=== PATIENT | male | born 1940 | race Caucasian/White ===

== ENCOUNTER 2016-10-13 14:07 | Inpatient (IN) ==
--- NOTE | 2016-10-13 14:25 | Emergency Department Note ---
Disposition Clinical Impression: Elevated LFTs, Elevated bilirubin, Acute cholecystitis, Scleral icterus, RUQ pain, Hypotension Disposition: Admitted As Inpatient Condition: Fair Referrals: Sheldon Gallagher DO [Primary Care Provider] - Forms: ED Satisfaction Letter General Adult HPI - General Chief complaint: ED Weakness Stated complaint: passing blood Time Seen by Provider: 10/13/16 14:22 Source: patient - History of Present Illness Pain Scale: 3 - Related Data Home Medications Medication Instructions Recorded Confirmed Duloxetine HCl [Cymbalta] 60 mg PO QAM 09/21/15 05/26/16 Lisinopril [Zestril] 10 mg PO QAM 09/21/15 05/26/16 Gabapentin [Neurontin] 800 mg PO TID 03/17/16 05/26/16 Meloxicam [Mobic] 15 mg PO DAILY 05/26/16 05/26/16 Metoprolol [Lopressor] 25 mg PO BID 05/26/16 05/26/16 Multivitamin/Iron/Folic Acid 1 each PO DAILY 05/26/16 05/26/16 [Centrum Complete Multivit Tab] Oxycodone HCl [Oxaydo] 5 mg PO DAILY 05/26/16 05/26/16 Mirtazapine [Remeron] 15 mg PO HS 08/03/16 08/03/16 Previous Rx's Medication Instructions Recorded Aspirin 81 mg PO DAILY #60 tab.chew 04/05/16 Atorvastatin [Lipitor] 80 mg PO HS #60 tablet 04/05/16 HYDROcodone/Acet 10/325 mg [[place] 1 tab PO Q6HR PRN #30 tablet 04/05/16 10-325 mg] Allergies Allergy/AdvReac Type Severity Reaction Status Date / Time No Known Allergies Allergy Verified 10/13/16 14:20 Past Medical History - Past Medical History Medical history: Reports: arthritis, asthma, atrial fibrillation, coronary artery disease, hyperlipidemia, hypertension, myocardial infarction, other Surgical history: Reports: coronary bypass (CABG), orthopedic, other, prostatectomy Psychiatric history: Reports: anxiety, depression - Social History Smoking Status: Former smoker Smokeless Tobacco Status: No Alcohol use: Reports: none Drug use: Reports: none Physical Exam - General General appearance: alert, in no apparent distress Course Vital Signs Temperature 97.6 F 10/13/16 14:17 Pulse Rate 74 10/13/16 14:17 Respiratory Rate 14 10/13/16 14:17 Blood Pressure 76/40 10/13/16 14:17 O2 Sat by Pulse Oximetry 91 10/13/16 14:17 Temperature 97.6 F 10/13/16 14:17 Pulse Rate 69 10/13/16 15:32 Respiratory Rate 16 10/13/16 15:32 Blood Pressure 86/51 10/13/16 15:32 O2 Sat by Pulse Oximetry 96 10/13/16 15:32 Oxygen Delivery Oxygen Delivery Room Air Medical Decision Making - Lab Data Result diagrams: 10/13/16 14:40 10/13/16 14:40 Lab Results 10/13/16 10/13/16 10/13/16 Range/Units 14:40 14:40 14:46 WBC 6.2 (4.3-11.1) K/mcL RBC 4.10 L (4.19-5.50) M/mcL Hgb 10.8 L (12.9-16.9) g/dL Hct 34.6 L (37.5-50.1) % MCV 84.4 (83.0-100.0) fL MCH 26.3 L (28.0-33.3) pg MCHC 31.2 L (31.6-35.5) g/dL RDW 15.6 H (11.5-14.5) % Plt Count 335 (140-400) K/mcL MPV 9.6 (9.4-12.4) fL Immature Gran % 0.2 (0-4) % Seg Neutrophils % 56.3 % Lymphocytes % 20.6 % Monocytes % 17.7 % Eosinophils % 4.9 % Basophils % 0.3 % Neutrophils # 3.5 (1.6-8.9) K/mcL Lymphocytes # 1.3 (0.6-4.6) K/mcL Monocytes # 1.1 (0.0-1.3) K/mcL Eosinophils # 0.3 (0.0-0.6) K/mcL Basophils # 0.0 (0.0-0.2) K/mcL PT 11.1 (9.4-12.1) Seconds INR 1.0 APTT 33.1 (26.0-36.0) Seconds Sodium 134 L (136-145) mEq/L Potassium 4.3 (3.5-4.5) mEq/L Chloride 97 L (98-109) mEq/L Carbon Dioxide 25 (19-29) mEq/L BUN 36 H (8-26) mg/dL Creatinine 2.96 H (0.72-1.25) mg/dL Est GFR ( Amer) 25 L (> 60) Est GFR (Non-Af Amer) 21 L (> 60) BUN/Creatinine Ratio 12 (6-26) Glucose 152 H (70-99) mg/dL Calculated Osmolality 289 (280-300) Calcium 8.9 (8.6-10.8) mg/dL Total Bilirubin 1.7 H (0.2-1.2) mg/dL Direct Bilirubin 0.9 H (0.0-0.5) mg/dL Indirect Bilirubin 0.8 (0.0-1.2) mg/dL AST 152 H (5-34) Units/L ALT 126 H (0-55) Units/L Alkaline Phosphatase 379 H (38-126) Units/L Serum Total Protein 6.5 (6.0-8.3) g/dL Albumin 2.8 L (3.5-5.0) g/dL Globulin 3.7 H (2.4-3.5) g/dL Albumin/Globulin Ratio 0.8 L (1.1-2.2) Amylase 52 (25-125) Units/L Lipase 39 (8-78) Units/L Attestation Statement - Attestation Attestation: I examined this patient and my medical decision-making was reviewed with the DRIVE IN THEATER ATTENDANT/PA/Advanced Practice Nurse/Resident Physician. I agree with the documented findings, disposition and treatment plan as described except to the extent set forth below. [id number] time provided Patient presents complaining of hematuria. He takes aspirin. He does have some lower abdominal discomfort. Triage vitals indicate hypotension. He appears in no acute distress on exam. Patient seen and evaluated in conjunction with the resident physician 16:06: Labs and CT findings consistent with acute cholecystitis. Empiric antibiotics NOT initiated the recommendation of Dr. Mireles. Patient will require admission
--- NOTE | 2016-10-13 14:36 | Emergency Department Note ---
Disposition Clinical Impression: Elevated LFTs, Elevated bilirubin, Acute cholecystitis, Scleral icterus, RUQ pain Hypotension Qualifiers: Hypotension type: unspecified hypotension type Qualified Code(s): I95.9 - Hypotension, unspecified Disposition: Admitted As Inpatient Condition: Fair Time of Disposition: 16:23 Abdominal Pain HPI - General Chief Complaint: ED Weakness Stated Complaint: passing blood Time Seen by Provider: 10/13/16 14:22 Source: patient Mode of arrival: ambulatory Limitations: no limitations Nursing Notes Reviewed: Yes Vital Signs Reviewed: Yes - History of Present Illness HPI Narrative: Patient is a 76-year-old male with past medical history of A. fib, CAD, hypertension, hyperlipidemia. Only on aspirin for blood thinner. He presents today due to dark reddish brown urine. He has also had bilateral flank pain, right upper quadrant abdominal pain, belching, acid reflux, has felt overall generally weak. Denies any dysuria, chest pain, shortness of breath, vomiting, diarrhea. He does admit to some mild nausea. He is not able to finish meals because "he does not feel like eating. "He does not describe any pain or nausea when eating. is present and states these symptoms have been present for at least a weak and are worsening. Pain Scale: 3 - Related Data Home Medications Medication Instructions Recorded Confirmed Duloxetine HCl [Cymbalta] 60 mg PO QAM 09/21/15 10/13/16 Lisinopril [Zestril] 10 mg PO QAM 09/21/15 10/13/16 Meloxicam [Mobic] 15 mg PO DAILY 05/26/16 10/13/16 Metoprolol [Lopressor] 12.5 mg PO BID 05/26/16 10/13/16 Multivitamin/Iron/Folic Acid 1 each PO DAILY 05/26/16 10/13/16 [Centrum Complete Multivit Tab] Mirtazapine [Remeron] 15 mg PO HS 08/03/16 10/13/16 Amiodarone [Cordarone] 200 mg PO DAILY 10/13/16 10/13/16 Atorvastatin Calcium [Lipitor] 80 mg PO HS 10/13/16 10/13/16 Docusate Sodium [Stool Softener] 100 mg PO DAILY PRN 10/13/16 10/13/16 Gabapentin [Neurontin] 600 mg PO TID 10/13/16 10/13/16 HYDROcodone/Acet 10/325 mg [[place] 1 tab PO QID 10/13/16 10/13/16 10-325 mg] Nitroglycerin [Nitrostat] 0.4 mg SL Q5M PRN 10/13/16 10/13/16 Previous Rx's Medication Instructions Recorded Aspirin 81 mg PO DAILY #60 tab.chew 04/05/16 Allergies Allergy/AdvReac Type Severity Reaction Status Date / Time No Known Allergies Allergy Verified 10/13/16 14:20 All systems ED: reviewed and negative except as stated. Constitutional: Denies: fever ENT ED: Denies: ear pain, throat pain Cardiovascular: Denies: chest pain, palpitations Respiratory: Denies: cough, dyspnea Gastrointestinal: Reports: abdominal pain, nausea. Denies: vomiting, hematemesis, melena, hematochezia Genitourinary: Reports: hematuria. Denies: urgency, dysuria, frequency, discharge Musculoskeletal: Reports: back pain Integumentary: Denies: rash Abdominal Pain PMH - Past Medical History Medical history: Reports: arthritis, asthma, atrial fibrillation, coronary artery disease, hyperlipidemia, hypertension, myocardial infarction, other Male Surgical History: Reports: knee replacement Psychiatric history: Reports: anxiety, depression - Social History Smoking status: Former smoker Alcohol use: Reports: none Drug use: Reports: none Physical Exam - General General appearance: alert, in no apparent distress - Head Head exam: atraumatic, normocephalic, normal inspection - Eye Eye exam: Present: PERRL, EOMI, scleral icterus - ENT ENT exam: normal exam, mucous membranes moist - Neck Neck exam: Present: normal inspection, full ROM, trachea midline - Chest Chest inspection: Present: normal inspection, symmetric chest wall rise - Respiratory Respiratory exam: Present: normal lung sounds bilaterally. Absent: respiratory distress, wheezes - Cardiovascular Cardiovascular exam: Present: regular rate, normal rhythm, normal heart sounds - Abdominal Exam Abdominal exam: Present: tenderness (epigastric and RUQ). Absent: distention, guarding, rebound, rigidity, Hand's sign, Rovsing's sign, tenderness at McBurney's Point - Extremities Exam Extremities exam: Present: normal inspection, full ROM. Absent: tenderness, pedal edema - Back Exam Back exam: Present: normal inspection, full ROM. Absent: tenderness - Neurological Exam Neurological exam: Present: alert, oriented X3 - Psychiatric Psychiatric exam: Present: normal affect, normal mood - Skin Skin exam: Present: warm, dry, intact, normal color Course Course Narrative: Blood pressure 76/40. We will give normal saline bolus 1 L. The rest of his vitals were within normal limits. Physical exam shows scleral icterus, right upper quadrant epigastric tenderness. Patient also has complaints of dark/ blood in urine. We will obtain CT abdomen and pelvis with IV contrast, abdominal labs, basic labs, urinalysis. Current concern for cholecystitis/ choledocholithiasis. 16:11 labs show chronic anemia. Patient has ROBERTO CARLOS. Elevated LFTs, elevated total bili, elevated direct bili. CT of abdomen and pelvis is concerning for acute cholecystitis. Dr. mireles was paged. pending 16:[address] Mireles. He requested Coags, fluids, and admission to medicine service for ROBERTO CARLOS. He may do MRCP in morning and will discuss cholecystectomy in the morning. He did not want antibiotics started at this time. Will admit to medicine. Abdomen/Pelvis CT 10/13/16 14:30 IMPRESSION: CT findings concerning for acute cholecystitis. Consider HIDA scan and right upper quadrant ultrasound for further evaluation. D/ / Arie Calero MD / Arie Calero MD Interpreting Provider: Arie Calero MD Vital Signs Temperature 97.6 F 10/13/16 14:17 Pulse Rate 74 10/13/16 14:17 Respiratory Rate 14 10/13/16 14:17 Blood Pressure 76/40 10/13/16 14:17 O2 Sat by Pulse Oximetry 91 10/13/16 14:17 Temperature 97.6 F 10/13/16 14:17 Pulse Rate 72 10/13/16 16:29 Respiratory Rate 16 10/13/16 16:29 Blood Pressure 81/51 10/13/16 16:29 O2 Sat by Pulse Oximetry 96 10/13/16 16:29 Oxygen Delivery Oxygen Delivery Room Air Abdominal Pain - MDM Narrative Medical decision making narrative: Blood pressure 76/40. We will give normal saline bolus 1 L. The rest of his vitals were within normal limits. Physical exam shows scleral icterus, right upper quadrant epigastric tenderness. Patient also has complaints of dark/ blood in urine. We will obtain CT abdomen and pelvis with IV contrast, abdominal labs, basic labs, urinalysis. Current concern for cholecystitis/ choledocholithiasis. 16:11 labs show chronic anemia. Patient has ROBERTO CARLOS. Elevated LFTs, elevated total bili, elevated direct bili. CT of abdomen and pelvis is concerning for acute cholecystitis. Dr. mireles was paged. pending 16:[address] Mireles. He requested Coags, fluids, and admission to medicine service for ROBERTO CARLOS. He may do MRCP in morning and will discuss cholecystectomy in the morning. He did not want antibiotics started at this time. Will admit to medicine. - Medical Records Medical records reviewed: Yes I reviewed the patient's medical records. - Lab Data Lab results reviewed: Yes I reviewed the patient's lab results. Result diagrams: 10/13/16 14:40 10/13/16 14:40 Lab Results 10/13/16 10/13/16 10/13/16 Range/Units 14:40 14:40 14:46 WBC 6.2 (4.3-11.1) K/mcL RBC 4.10 L (4.19-5.50) M/mcL Hgb 10.8 L (12.9-16.9) g/dL Hct 34.6 L (37.5-50.1) % MCV 84.4 (83.0-100.0) fL MCH 26.3 L (28.0-33.3) pg MCHC 31.2 L (31.6-35.5) g/dL RDW 15.6 H (11.5-14.5) % Plt Count 335 (140-400) K/mcL MPV 9.6 (9.4-12.4) fL Immature Gran % 0.2 (0-4) % Seg Neutrophils % 56.3 % Lymphocytes % 20.6 % Monocytes % 17.7 % Eosinophils % 4.9 % Basophils % 0.3 % Neutrophils # 3.5 (1.6-8.9) K/mcL Lymphocytes # 1.3 (0.6-4.6) K/mcL Monocytes # 1.1 (0.0-1.3) K/mcL Eosinophils # 0.3 (0.0-0.6) K/mcL Basophils # 0.0 (0.0-0.2) K/mcL PT 11.1 (9.4-12.1) Seconds INR 1.0 APTT 33.1 (26.0-36.0) Seconds Sodium 134 L (136-145) mEq/L Potassium 4.3 (3.5-4.5) mEq/L Chloride 97 L (98-109) mEq/L Carbon Dioxide 25 (19-29) mEq/L BUN 36 H (8-26) mg/dL Creatinine 2.96 H (0.72-1.25) mg/dL Est GFR ( Amer) 25 L (> 60) Est GFR (Non-Af Amer) 21 L (> 60) BUN/Creatinine Ratio 12 (6-26) Glucose 152 H (70-99) mg/dL Calculated Osmolality 289 (280-300) Calcium 8.9 (8.6-10.8) mg/dL Total Bilirubin 1.7 H (0.2-1.2) mg/dL Direct Bilirubin 0.9 H (0.0-0.5) mg/dL Indirect Bilirubin 0.8 (0.0-1.2) mg/dL AST 152 H (5-34) Units/L ALT 126 H (0-55) Units/L Alkaline Phosphatase 379 H (38-126) Units/L Serum Total Protein 6.5 (6.0-8.3) g/dL Albumin 2.8 L (3.5-5.0) g/dL Globulin 3.7 H (2.4-3.5) g/dL Albumin/Globulin Ratio 0.8 L (1.1-2.2) Amylase 52 (25-125) Units/L Lipase 39 (8-78) Units/L - Radiology Data Radiology results reviewed: Yes I reviewed the patient's radiology results. Abdomen/Pelvis CT 10/13/16 14:30 IMPRESSION: CT findings concerning for acute cholecystitis. Consider HIDA scan and right upper quadrant ultrasound for further evaluation. D/ / Arie Calero MD / Arie Calero MD Interpreting Provider: Arie Calero MD - EKG Data EKG attestation: Yes I reviewed and interpreted this EKG. EKG results narrative: 10/13/2016 at 14:25. Normal sinus rhythm. Rate 75. VA 155. QRS 98. QTC 394. Normal axis. No acute ST elevation or depression. T-wave inversion in aVF. Widened QRS complexes. Tanner - Tanner Situation: Demographics, MOA Background: Presenting Complaint, Relevant PMH, Meds, & Allergies Assessment: Vital Signs, Course and respsone to treatment, Exam Concerns, Patient/Family Expectation, Pertinant Lab Results, Outstanding Labs Recommendation: Barrier(s) to disposition, Recommendation based on pending studies, treatments, or consults SKathyBClementina Report Given to: Annette Hart Repor Time: 16:23
[2016-10-13] MEDS: 0.9 % Sodium Chloride 1,000 ML IVC ONE ×2 (14:45→15:32)
[2016-10-13 14:47] LABS: Basophils % 0.3 %; Eosinophils # 0.3 K/mcL (0.0-0.6); Eosinophils % 4.9 %; Hematocrit 34.6 % (37.5-50.1); Hemoglobin 10.8 g/dL (12.9-16.9); Immature Granulocytes % 0.2 % (0-4); Lymphocytes # 1.3 K/mcL (0.6-4.6); Lymphocytes % 20.6 %; Mean Corpuscular HGB Conc 31.2 g/dL (31.6-35.5); Mean Corpuscular Hemoglobin 26.3 pg (28.0-33.3); Mean Corpuscular Volume 84.4 fL (83.0-100.0); Mean Platelet Volume 9.6 fL (9.4-12.4); Monocytes # 1.1 K/mcL (0.0-1.3); Monocytes % 17.7 %; Neutrophils # 3.5 K/mcL (1.6-8.9); Platelet Count 335 K/mcL (140-400); Red Cell Distribution Width 15.6 % (11.5-14.5); Segmented Neutrophils % 56.3 %
[2016-10-13 15:12] LABS: Albumin 2.8 g/dL (3.5-5.0); Albumin/Globulin Ratio 0.8 (1.1-2.2); Bilirubin,Direct 0.9 mg/dL (0.0-0.5); Bilirubin,Indirect 0.8 mg/dL (0.0-1.2); Bilirubin,Total 1.7 mg/dL (0.2-1.2); Calcium 8.9 mg/dL (8.6-10.8); Globulin 3.7 g/dL (2.4-3.5); Potassium 4.3 mEq/L (3.5-4.5); Total Protein 6.5 g/dL (6.0-8.3)
[2016-10-13] MEDS ORDERED: 0.9 % Sodium Chloride 1,000 ML ONE (15:17)
[2016-10-13 15:30] LABS: Prothrombin Time 11.1 Seconds (9.4-12.1)
[2016-10-13 15:32] LABS: Activated Partial Thrombo Time 33.1 Seconds (26.0-36.0)
[2016-10-13] MEDS ORDERED: 0.9 % Sodium Chloride 1,000 ML IVC ONE (16:17)
[2016-10-13] MEDS ORDERED: Ondansetron ODT 4 MG TAB.RAPDIS SL PRN (16:41)
[2016-10-13] MEDS ORDERED: Naloxone 0.4 MG/ML INJ IVP PRN (16:41)
[2016-10-13] MEDS: 0.9 % Sodium Chloride 1,000 ML IVC SCH ×2 (18:05→21:45)
[2016-10-13] MEDS: Pantoprazole 40 MG VIAL IVP SCH (18:53)
[2016-10-13 19:10] LABS: Bilirubin,Urine Small (Negative); Blood,Urine Negative (Negative); Color,Urine Dark Yellow (Yellow); Glucose,Urine (UA) Normal (Normal); Ketones,Urine Negative (Negative); Leukocyte Esterase,Urine Negative (Negative); Nitrite,Urine Negative (Negative); Protein,Urine 30 mg/dL (Neg-Trace); Specific Gravity,Urine 1.019 (1.010-1.025); Urobilinogen,Urine Normal (Normal)
--- NOTE | 2016-10-13 19:11 | Internal Med History&Physical ---
<Allred,Elizabeth J - Last Filed: 10/13/16 19:34> Date of Encounter: 10/13/16 Time of Encounter: 19:07 Assessment and Plan (1) Acute cholecystitis Current visit: Yes Status: Acute presented with ABD pain for one week prior to admission. ABD CT concerning for acute cholecystitis. Total bili and LFT elevated. General Surgery consulted in the ED and possible MRCP in am. Afebrile, no significantly elevated WBC. Hold on ATB. NPO, IV fluids, pain control (2) Acute kidney failure Current visit: Yes Status: Acute Cr 2.9 (baseline appears normal). Suspect pre-renal with poor PO intake prior to admission. Hold home NELLI, meloxicam. Cont aggressive IV fluids, UA ending in ER. Bladder scan if unable to void. Qualifiers: Qualified Code(s): N17.9 - Acute kidney failure, unspecified (3) HTN (hypertension) Current visit: No Status: Chronic per hx but was hypotensive with SBPs in 80s while in the ED. BP responded to IV fluids. Hold home BP medications at this time, monitor BP and resume if BP stays stable Qualifiers: Hypertension type: essential hypertension Qualified Code(s): I10 - Essential (primary) hypertension (4) Paroxysmal atrial fibrillation Current visit: No Status: Chronic per hx. Was on amiodarone but stopped per PCP. EKG with NSR. Resume home BB as BP allows, cont home ASA (5) Coronary artery disease Current visit: No Status: Chronic per hx with CABG. Denies CP, EKG without acute ST changes. Cont home ASA, BB, statin Qualifiers: Coronary Disease-Associated Artery/Lesion type: [place] artery [place] vs. transplanted heart: [place] heart Associated angina: without angina Qualified Code(s): I25.10 - Atherosclerotic heart disease of [place] coronary artery without angina pectoris (6) DVT prophylaxis Current visit: No Status: Acute heparin Internal Medicine - H&P: HPI Chief complaint: abdominla pain Admitted From: Home Plans for Post Hospital Care: Home History of present illness: Mr. John Michele is a 76 year old male CAD and HTN who presented to [facility] on 2013 with complaints of abdominal pain. He was found to have acute cholecystitis and was admitted for pain control and General Surgery consultation. Seen and examined in the ED. He complains of sharp, LUQ ABD pain that radiates to the right side. Nothing makes better or worse. He denies CP, no SOB Past Med Surg Social Fam HX - Past Medical History Medical history: arthritis, asthma, atrial fibrillation, coronary artery disease , hyperlipidemia, hypertension, myocardial infarction, other Psychiatric history: anxiety, depression - Past Surgical History Surgical History: coronary bypass (CABG), orthopedic, other, prostatectomy - Social History Smoking Status: Former smoker Smokeless Tobacco Status: No Alcohol use: none Drug use: none - Family History Mother Living Status: Hx Family Cardiac Disorders: Yes (mi) Father Living Status: Hx Family Cardiac Disorders: Yes (self, brother,sister, mother) Hx Family Respiratory Disorders: Yes Hx Family Cancer: Yes (father) Hx Family GI Disorders: Yes (father) Hx Family Endocrine Disorder: Yes (brother,) Hx Family Neuromuscular Disorders: No Hx Family Neurologic Disorders: No Hx Family HEENT Disorders: No Hx Family Autoimmune Disorders: Yes (RA) Brother Hx Family Cardiac Disorders: Yes - Additional Family History Additional family history: reviewed and noncontributory Internal Medicine - H&P: Meds Duloxetine HCl [Cymbalta] 60 mg PO QAM 09/21/15 [History] Lisinopril [Zestril] 10 mg PO QAM 09/21/15 [History] Aspirin 81 mg PO DAILY #60 tab.chew 04/05/16 [Rx] Meloxicam [Mobic] 15 mg PO DAILY 05/26/16 [History] Metoprolol [Lopressor] 12.5 mg PO BID 05/26/16 [History] Multivitamin/Iron/Folic Acid [Centrum Complete Multivit Tab] 1 each PO DAILY 02/01 [History] Mirtazapine [Remeron] 15 mg PO HS 08/03/16 [History] Amiodarone [Cordarone] 200 mg PO DAILY 10/13/16 [History] Atorvastatin Calcium [Lipitor] 80 mg PO HS 10/13/16 [History] Docusate Sodium [Stool Softener] 100 mg PO DAILY PRN 10/13/16 [History] Gabapentin [Neurontin] 600 mg PO TID 10/13/16 [History] HYDROcodone/Acet 10/325 mg [[place] 10-325 mg] 1 tab PO QID 10/13/16 [History] Nitroglycerin [Nitrostat] 0.4 mg SL Q5M PRN 10/13/16 [History] Allergies No Known Allergies Allergy (Verified 10/13/16 14:20) All Systems PM: A 10-system review of systems was performed and is negative for pertinent findings except as documented above in the HPI. - Constitutional Constitutional: no chills, no fever(s), no night sweats - EENT Eyes: no change in vision, no discharge, no pain, no photophobia Ears: no ear discharge, no ear pain, no tinnitus Nose, mouth and throat: no dysphagia, no nasal discharge, no neck pain, no sore throat - Cardiovascular Cardiovascular ROS IM: no chest pain, no diaphoresis, no dyspnea, no lightheadedness, no palpitations, no syncope - Respiratory Respiratory: no cough, no dyspnea, no wheezing, no excessive phlegm production - Gastrointestinal Gastrointestinal: abdominal pain, no diarrhea, no hematemesis, no hematochezia, no melena, no nausea, no vomiting - Musculoskeletal Musculoskeletal ROS IM: no numbness, no tingling - Integumentary Integumentary IM: no rash, no unusual bruising - Neurological Neurological ROS: no confusion, no convulsions, no focal weakness, no numbness, no tingling, no tremor(s) - Hematologic/Lymphatic Hematologic/Lymphatic: no easy bruising - Constitutional Vitals: Temp Pulse Resp BP Pulse Ox 98.0 F 98 20 123/74 98 10/13/16 18:05 10/13/16 18:05 10/13/16 18:05 10/13/16 18:05 10/13/16 18:05 General appearance: Present: A&O X 3 - Head Head exam: Present: atraumatic, normocephalic - Eye Eye exam: Present: PERRL, conjuntiva pink, sclera anicteric Pupils: Present: PERRL - Neck Neck exam general surgery: Present: supple, trachea midline. Absent: lymphadenopathy - Respiratory Respiratory exam: Present: CTAB. Absent: accessory muscle use, rales, rhonchi, wheezes - Cardiovascular Cardiovascular exam: Present: RRR, +S1, +S2. Absent: diastolic murmur, gallop, rubs, systolic murmur - GI/Abdominal GI/Abdominal exam: Present: normal bowel sounds, soft, tenderness, no peritoneal signs. Absent: distended - Extremities Exam Extremities exam: Present: warm, radial pulses palpable and symetrical. Absent : calf tenderness, cyanotic, pedal edema - Neurological Exam Neurological exam: Present: CN II-XII intact, oriented X3, no focal deficits. Absent: pronater drift, facial droop, speech deficit - Skin Skin exam: Present: dry, intact Internal Med - H&P Results - Labs CBC & Chem 7: 10/13/16 14:40 10/13/16 14:40 <Chris Duque - Last Filed: 10/13/16 22:18> Date of Encounter: 10/13/16 Internal Medicine - H&P: HPI History of present illness: Mr. John Michele is a 76 year old male All Systems PM: A 10-system review of systems was performed and is negative for pertinent findings except as documented above in the HPI. - Constitutional Vitals: Temp Pulse Resp BP Pulse Ox 98.0 F 98 20 123/74 98 10/13/16 18:05 10/13/16 18:05 10/13/16 18:05 10/13/16 18:05 10/13/16 19:04 Internal Med - H&P Results - Labs CBC & Chem 7: 10/13/16 14:40 10/13/16 14:40 Labs: Urine 10/13/16 Range/Units 18:30 Urine Color Dark Yellow (Yellow) Urine Clarity Hazy (Clear) Urine pH 6.0 (5.0-8.0) pH Units Ur Specific [place] 1.019 (1.010-1.025) Urine Protein 30 H (Neg-Trace) mg/dL Urine Glucose (UA) Normal (Normal) mg/dL - EKG Data -: EKG Interpreted by Myself EKG shows normal: sinus rhythm Rate: normal - EKG Data Prior EKG available for review: yes When compared to previous EKG: there is no significant change - Diagnostic Studies CT scan - abdomen Status: image reviewed by me - Attending Attestation I personally interviewed and examined this patient and my medical decision- making was reviewed with the Advanced Practice Nurse. I agree with the documented findings, disposition and treatment plan as described.
[2016-10-13 19:12] LABS: RBC,Urine 0-3 per hpf (0-3); Squamous Epithelial Cell,Urine Many per lpf (None-Few)
[2016-10-13 19:19] LABS: Clarity,Urine Hazy (Clear)
[2016-10-13 19:29] LABS: Bacteria,Urine Few per hpf (None-Few); Granular Casts,Urine Few per lpf (None Seen); Hyaline Casts,Urine Few per lpf (None-Few)
[2016-10-13] MEDS ORDERED: *HR* Morphine 2 MG/ML SYRINGE IVP PRN (19:44)
[2016-10-13] MEDS ORDERED: NON-FORMULARY MEDICATION 1 EACH EACH (Gabapentin [Neurontin] 600 MG) PO SCH (21:00)
[2016-10-13] MEDS: Gabapentin 300 MG CAPSULE PO SCH (21:43)
[2016-10-13] MEDS: Mirtazapine 15 MG TABLET PO SCH (21:43)
[2016-10-13] MEDS: *HR* Heparin 5,000 UNIT/ML VIAL SQ SCH (21:44)
[2016-10-14] MEDS ORDERED: 0.9 % Sodium Chloride 1,000 ML IVC STA (05:29)
[2016-10-14] MEDS: *HR* Heparin 5,000 UNIT/ML VIAL SQ SCH ×2 (05:47→15:15)
[2016-10-14 06:12] LABS: Basophils % 0.4 %; Eosinophils # 0.3 K/mcL (0.0-0.6); Eosinophils % 4.9 %; Hematocrit 33.3 % (37.5-50.1); Hemoglobin 10.4 g/dL (12.9-16.9); Immature Granulocytes % 0.4 % (0-4); Lymphocytes # 1.3 K/mcL (0.6-4.6); Lymphocytes % 23.8 %; Mean Corpuscular HGB Conc 31.2 g/dL (31.6-35.5); Mean Corpuscular Hemoglobin 26.2 pg (28.0-33.3); Mean Corpuscular Volume 83.9 fL (83.0-100.0); Mean Platelet Volume 10.3 fL (9.4-12.4); Monocytes % 18.1 %; Neutrophils # 2.9 K/mcL (1.6-8.9); Platelet Count 317 K/mcL (140-400); Red Blood Count 3.97 M/mcL (4.19-5.50); Red Cell Distribution Width 15.4 % (11.5-14.5); Segmented Neutrophils % 52.4 %
[2016-10-14 06:24] LABS: Hemoglobin A1C 6.1 %
[2016-10-14 06:33] LABS: Albumin 2.7 g/dL (3.5-5.0); Albumin/Globulin Ratio 0.8 (1.1-2.2); Calcium 8.5 mg/dL (8.6-10.8); Globulin 3.2 g/dL (2.4-3.5); Magnesium 2.1 mg/dL (1.6-2.6); Phosphorous 3.5 mg/dL (2.3-4.7); Potassium 4.4 mEq/L (3.5-4.5); Total Protein 5.9 g/dL (6.0-8.3)
[2016-10-14 06:50] LABS: Thyroid Stimulating Hormone 0.187 mcIU/mL (0.350-4.840); Triiodothyronine (T3) Free 1.97 pg/mL (1.71-3.71)
[2016-10-14 06:52] LABS: Platelet Estimate Normal (Normal)
[2016-10-14] MEDS: Pantoprazole 40 MG VIAL IVP SCH (07:27)
[2016-10-14] MEDS ORDERED: 0.9 % Sodium Chloride 250 ML IVC PRN (08:07)
[2016-10-14] MEDS: 0.9 % Sodium Chloride 1,000 ML IVC SCH ×2 (08:56→18:30)
[2016-10-14] MEDS ORDERED: *HR* Amiodarone 200 MG TABLET PO SCH (09:00)
[2016-10-14] MEDS ORDERED: Aspirin 81 MG TAB.CHEW PO SCH (09:00)
[2016-10-14] MEDS ORDERED: *HR* Morphine 2 MG/ML SYRINGE IVP PRN (11:48)
--- NOTE | 2016-10-14 12:06 | General Surgery Consult Note ---
Date of Encounter: 10/14/16 Time of Encounter: 11:00 History of Present Illness Consult date: 10/14/16 Requesting physician: Avinash Riggins History of present illness: 76-year-old male admitted after presenting to [facility] Emergency Department proximally six-day history of upper abdominal pain. CT scan was suggestive of acute cholecystitis. This CT was personally reviewed with [facility]. Findings include diverticulosis without inflammation; gallbladder is dilated with wall thickening and surrounding fat stranding. No stones were identified common bile duct appeared to be dilated at approximately 1.3 cm. Bowel pattern was normal there were no other significant intra-abdominal or intrapelvic findings. Laboratories are notable for normal white count, 6.2; hemoglobin 10.8 with hematocrit 34.6; BUN 36; creatinine 2.96; total bilirubin 1.7; AST 152 , ALP 126, alkaline phosphatase 379. The patient was hypotensive in the emergency department but this responded to IV fluids. Examination today reveals an elderly male who is feeling significantly improved. Repeat labs show normal white count 5.5 hemoglobin has fallen to 10.4 with hematocrit 33.3 ( reflective of hydration); [place] count 317,000. Electrolytes are normal, BUN has improved to 27; creatinine has improved to 1.74. Bilirubin has normalized, AST has improved 86, ALP 92, alkaline phosphatase 309. Past medical history: CAD, S/P CABG 5; paroxysmal atrial relation controlled medically; hypertension, and prostatic enlargement. Surgical history: CABG 5, right total hip, bilateral inguinal hernia repair in the remote past; transurethral resection of the prostate with resultant residual urethral scarring. Allergies: No known drug allergies Medications: Duloxetine 60 mg by mouth every morning Lisinopril 10 mg by mouth every morning Aspirin 81 mg by mouth daily Meloxicam 15 mg by mouth daily Metoprolol 12.5 mg by mouth twice a day Multivitamins with iron and folic acid 1 by mouth daily Mirtazapine 15 mg by mouth daily at bedtime Amiodarone 200 mg by mouth daily - this medication has been held since admission Atorvastatin 80 mg by mouth daily at bedtime Docusate 100 mg by mouth daily as needed Gabapentin 600 mg by mouth 3 times a day Hydrocodone with acetaminophen 10/325 one by mouth 4 times a day as needed for pain Nitroglycerin 0.4 mg sublingually every 5 minutes as needed for chest pain Social history: Patient is , lives at home with his spouse; the patient admits to 1+ pack of cigarettes daily for 20 years with cessation approx 40 years ago; patient denies any alcohol or illicit drug use. Physical examination: Age-appropriate male in no acute distress. Patient indicates he is feeling much improved since his presentation to the ED Afebrile, 98.7; pulse 82, respirations 16, blood pressure 119/66 (on presentation to the ED 83/44); SPO2 on 2 L/m nasal cannula 92-94% Skin: Warm, no obvious jaundice Lungs: Clear to auscultation; chest notable for well-healed medial sternotomy scar Cardiac: Regular rate, no appreciable irregularity or murmurs Abdomen: Minimal epigastric tenderness; no other abdominal tenderness; no obvious intra-abdominal masses. Hypoactive bowel sounds Extremities: No obvious clubbing cyanosis or edema. Impression: 76-year-old male admitted after presenting to [facility] with six-day history of upper abdominal pain. CT doubtable for diverticulosis without inflammation; dilated gallbladder with wall thickening and surrounding fat stranding. No identified stones and dilated common bile duct. The acute symptoms have abated with IV fluids and administered medications; hyperbilirubinemia on presentation has resolved; LFTs also improved Ultrasound of the gallbladder is pending. Recommendations: Allow clear liquids; continue IVF and repeat labs in AM Review ultrasound gallbladder when completed - further recommendations pending those results. an Thank you for this consultation Past Med Surg Social Fam HX - Past Medical History Medical history: arthritis, asthma, atrial fibrillation, coronary artery disease , hyperlipidemia, hypertension, myocardial infarction, other Psychiatric history: anxiety, depression - Past Surgical History Surgical History: coronary bypass (CABG), orthopedic, other, prostatectomy - Social History Smoking Status: Former smoker Smokeless Tobacco Status: No Alcohol use: none Drug use: none - Family History Mother Living Status: Hx Family Cardiac Disorders: Yes (mi) Father Living Status: Hx Family Cardiac Disorders: Yes (self, brother,sister, mother) Hx Family Respiratory Disorders: Yes Hx Family Cancer: Yes (father) Hx Family GI Disorders: Yes (father) Hx Family Endocrine Disorder: Yes (brother,) Hx Family Neuromuscular Disorders: No Hx Family Neurologic Disorders: No Hx Family HEENT Disorders: No Hx Family Autoimmune Disorders: Yes (RA) Brother Hx Family Cardiac Disorders: Yes Medications and Allergies Duloxetine HCl [Cymbalta] 60 mg PO QAM 09/21/15 [History] Lisinopril [Zestril] 10 mg PO QAM 09/21/15 [History] Aspirin 81 mg PO DAILY #60 tab.chew 04/05/16 [Rx] Meloxicam [Mobic] 15 mg PO DAILY 05/26/16 [History] Metoprolol [Lopressor] 12.5 mg PO BID 05/26/16 [History] Multivitamin/Iron/Folic Acid [Centrum Complete Multivit Tab] 1 each PO DAILY 02/01 [History] Mirtazapine [Remeron] 15 mg PO HS 08/03/16 [History] Amiodarone [Cordarone] 200 mg PO DAILY 10/13/16 [History] Atorvastatin Calcium [Lipitor] 80 mg PO HS 10/13/16 [History] Docusate Sodium [Stool Softener] 100 mg PO DAILY PRN 10/13/16 [History] Gabapentin [Neurontin] 600 mg PO TID 10/13/16 [History] HYDROcodone/Acet 10/325 mg [[place] 10-325 mg] 1 tab PO QID 10/13/16 [History] Nitroglycerin [Nitrostat] 0.4 mg SL Q5M PRN 10/13/16 [History] Allergies No Known Allergies Allergy (Verified 10/13/16 14:20) Review of Systems All systems PM: A 10-system review of systems was performed and is negative for pertinent findings except as documented above in the HPI. General Surgery Exam Initial Vital Signs Temp Pulse Resp BP Pulse Ox 97.6 F 74 14 76/40 91 10/13/16 14:17 10/13/16 14:17 10/13/16 14:17 10/13/16 14:17 10/13/16 14:17 Exam Initial Vital Signs Temp Pulse Resp BP Pulse Ox 97.6 F 74 14 76/40 91 10/13/16 14:17 10/13/16 14:17 10/13/16 14:17 10/13/16 14:17 10/13/16 14:17 Results - Labs 10/14/16 04:38 10/14/16 04:38 Abnormal lab results RBC 3.97 M/mcL (4.19-5.50) L 10/14/16 04:38 Hgb 10.4 g/dL (12.9-16.9) L 10/14/16 04:38 Hct 33.3 % (37.5-50.1) L 10/14/16 04:38 MCH 26.2 pg (28.0-33.3) L 10/14/16 04:38 MCHC 31.2 g/dL (31.6-35.5) L 10/14/16 04:38 RDW 15.4 % (11.5-14.5) H 10/14/16 04:38 BUN 27 mg/dL (8-26) H 10/14/16 04:38 Creatinine 1.74 mg/dL (0.72-1.25) H 10/14/16 04:38 Est GFR ( Amer) 47 (> 60) L 10/14/16 04:38 Est GFR (Non-Af Amer) 39 (> 60) L 10/14/16 04:38 Hemoglobin A1c 6.1 % (-5.6) H 10/14/16 05:43 Calcium 8.5 mg/dL (8.6-10.8) L 10/14/16 04:38 Direct Bilirubin 0.9 mg/dL (0.0-0.5) H 10/13/16 14:40 AST 86 Units/L (5-34) H 10/14/16 04:38 ALT 92 Units/L (0-55) H 10/14/16 04:38 Alkaline Phosphatase 309 Units/L (38-126) H 10/14/16 04:38 Serum Total Protein 5.9 g/dL (6.0-8.3) L 10/14/16 04:38 Albumin 2.7 g/dL (3.5-5.0) L 10/14/16 04:38 Albumin/Globulin Ratio 0.8 (1.1-2.2) L 10/14/16 04:38 TSH 0.187 mcIU/mL (0.350-4.840) L 10/14/16 05:43 Urine Protein 30 mg/dL (Neg-Trace) H 10/13/16 18:30 Urine Bilirubin Small (Negative) H 10/13/16 18:30 Urine Microscopic WBC 5-15 per hpf (0-3) H 10/13/16 18:30 Ur Squamous Epith Cells Many per lpf (None-Few) H 10/13/16 18:30 Granular Casts Few per lpf (None Seen) H 10/13/16 18:30 Ur Culture Indicated? YES (NO) A 10/13/16 18:30 Diabetes panel 10/14/16 10/14/16 Range/Units 04:38 05:43 Sodium 139 (136-145) mEq/L Potassium 4.4 (3.5-4.5) mEq/L Chloride 104 (98-109) mEq/L Carbon Dioxide 27 (19-29) mEq/L BUN 27 H (8-26) mg/dL Creatinine 1.74 H (0.72-1.25) mg/dL Glucose 85 (70-99) mg/dL Hemoglobin A1c 6.1 H ( - 5.6) % Calcium 8.5 L (8.6-10.8) mg/dL AST 86 H (5-34) Units/L ALT 92 H (0-55) Units/L Alkaline Phosphatase 309 H (38-126) Units/L Albumin 2.7 L (3.5-5.0) g/dL Thyroid panel 10/14/16 Range/Units 05:43 TSH 0.187 L (0.350-4.840) mcIU/mL Thyroxine (T4) 6.69 (4.87-11.72) mcg/dL Calcium panel 10/14/16 Range/Units 04:38 Calcium 8.5 L (8.6-10.8) mg/dL Phosphorus 3.5 (2.3-4.7) mg/dL Albumin 2.7 L (3.5-5.0) g/dL Pituitary panel 10/14/16 10/14/16 Range/Units 04:38 05:43 Sodium 139 (136-145) mEq/L Potassium 4.4 (3.5-4.5) mEq/L Chloride 104 (98-109) mEq/L Carbon Dioxide 27 (19-29) mEq/L BUN 27 H (8-26) mg/dL Creatinine 1.74 H (0.72-1.25) mg/dL Glucose 85 (70-99) mg/dL Calcium 8.5 L (8.6-10.8) mg/dL TSH 0.187 L (0.350-4.840) mcIU/mL Thyroxine (T4) 6.69 (4.87-11.72) mcg/dL Adrenal panel 10/14/16 Range/Units 04:38 Sodium 139 (136-145) mEq/L Potassium 4.4 (3.5-4.5) mEq/L Chloride 104 (98-109) mEq/L Carbon Dioxide 27 (19-29) mEq/L BUN 27 H (8-26) mg/dL Creatinine 1.74 H (0.72-1.25) mg/dL Glucose 85 (70-99) mg/dL Calcium 8.5 L (8.6-10.8) mg/dL Total Bilirubin 1.0 (0.2-1.2) mg/dL AST 86 H (5-34) Units/L ALT 92 H (0-55) Units/L Alkaline Phosphatase 309 H (38-126) Units/L Albumin 2.7 L (3.5-5.0) g/dL All other labs normal. Consult Discharge Plan - Plan Referrals: Sheldon Gallagher DO [Primary Care Provider] -
[2016-10-14] MEDS: MetroNIDAZOLE 500 MG/100 ML 500 MG/100 ML BAG IVPB SCH ×2 (15:15→23:31)
--- NOTE | 2016-10-14 17:29 | General Surgery Progress Note ---
Date of Encounter: 10/14/16 Time of Encounter: 17:05 Subjective Narrative: General Surgery: USGB personally reviewed with [facility]. Comparison with CT. Findings include: Fusible thickening of the gallbladder with numerous echogenic foci within the gallbladder some of which appear non- dependent. A small amount of sludge and pericholecystic fluid is also described. Common bile duct is dilated at 10 mm. These findings are consistent with acute cholecystitis, cholelithiasis. Impression: Acute cholecystitis cholelithiasis with hyperbilirubinemia which has resolved since admission with abnormal LFTs. The acute symptoms with which the patient presented, are improved but it is felt that recurrence of these acute symptoms is likely. Surgery is recommended. The patient is a reasonable candidate for laparoscopic cholecystectomy but understands that an open cholecystectomy may become necessary. Risks of surgery include hemorrhage, infection, intra- abdominal abscess, bile leak, injury to adjacent ducts, vessels, organs and bowel. The patient is also at increased risk for cardiac and or respiratory complications. The patient's and son were present during this discussion. All have expressed understanding and are in agreement with the recommended surgery. This will be scheduled for the a.m. Objective Vital Signs - Last 8 Hours Temp Pulse Resp BP Pulse Ox 10/14/16 15:48 98.4 F 85 16 129/72 93 10/14/16 12:56 98.3 F 86 16 117/67 96 Intake and Output 10/14/16 10/14/16 10/14/16 07:59 15:59 23:59 Output Total 0 / 0 1100 / 1100 Balance 0 / 0 -1100 / -1100 Output: Urine 0 / 0 1100 / 1100 Other: Weight 72.1 kg Patient Weight 10/14/16 23:59 Weight 72.1 kg - Labs 10/14/16 04:38 10/14/16 04:38 Diabetes panel 10/14/16 10/14/16 Range/Units 04:38 05:43 Sodium 139 (136-145) mEq/L Potassium 4.4 (3.5-4.5) mEq/L Chloride 104 (98-109) mEq/L Carbon Dioxide 27 (19-29) mEq/L BUN 27 H (8-26) mg/dL Creatinine 1.74 H (0.72-1.25) mg/dL Glucose 85 (70-99) mg/dL Hemoglobin A1c 6.1 H ( - 5.6) % Calcium 8.5 L (8.6-10.8) mg/dL AST 86 H (5-34) Units/L ALT 92 H (0-55) Units/L Alkaline Phosphatase 309 H (38-126) Units/L Albumin 2.7 L (3.5-5.0) g/dL Thyroid panel 10/14/16 Range/Units 05:43 TSH 0.187 L (0.350-4.840) mcIU/mL Thyroxine (T4) 6.69 (4.87-11.72) mcg/dL Calcium panel 10/14/16 Range/Units 04:38 Calcium 8.5 L (8.6-10.8) mg/dL Phosphorus 3.5 (2.3-4.7) mg/dL Albumin 2.7 L (3.5-5.0) g/dL Pituitary panel 10/14/16 10/14/16 Range/Units 04:38 05:43 Sodium 139 (136-145) mEq/L Potassium 4.4 (3.5-4.5) mEq/L Chloride 104 (98-109) mEq/L Carbon Dioxide 27 (19-29) mEq/L BUN 27 H (8-26) mg/dL Creatinine 1.74 H (0.72-1.25) mg/dL Glucose 85 (70-99) mg/dL Calcium 8.5 L (8.6-10.8) mg/dL TSH 0.187 L (0.350-4.840) mcIU/mL Thyroxine (T4) 6.69 (4.87-11.72) mcg/dL Adrenal panel 10/14/16 Range/Units 04:38 Sodium 139 (136-145) mEq/L Potassium 4.4 (3.5-4.5) mEq/L Chloride 104 (98-109) mEq/L Carbon Dioxide 27 (19-29) mEq/L BUN 27 H (8-26) mg/dL Creatinine 1.74 H (0.72-1.25) mg/dL Glucose 85 (70-99) mg/dL Calcium 8.5 L (8.6-10.8) mg/dL Total Bilirubin 1.0 (0.2-1.2) mg/dL AST 86 H (5-34) Units/L ALT 92 H (0-55) Units/L Alkaline Phosphatase 309 H (38-126) Units/L Albumin 2.7 L (3.5-5.0) g/dL Consult Discharge Plan - Plan Referrals: Sheldon Gallagher DO [Primary Care Provider] -
--- NOTE | 2016-10-14 17:37 | Internal Med Progress Note ---
Date of Encounter: 10/14/16 Time of Encounter: 17:34 - Assessment and plan (1) Acute cholecystitis Current Visit: Yes Status: Acute Assessment and plan: Surgical consultation appreciated Patient will undergo laparoscopic cholecystectomy in a.m. continue supportive care, IV fluids IV antibiotics NPO after midnight Pain control (2) Acute kidney failure Current Visit: Yes Status: Acute Assessment and plan: Likely prerenal Renal function improved from previous day Continue IV fluids Continue to hold NELLI inhibitor, meloxicam We will continue to closely monitor Qualifiers: Acute renal failure type: unspecified Qualified Code(s): N17.9 - Acute kidney failure, unspecified (3) HTN (hypertension) Current Visit: No Status: Chronic Assessment and plan: Noted to be hypotensive in the ED Hypotension resolved at this time BP within acceptable range Continue to monitor off antihypertensives at this time Qualifiers: Hypertension type: essential hypertension Qualified Code(s): I10 - Essential (primary) hypertension (4) Smoker Current Visit: Yes Status: Acute Assessment and plan: Patient reports of being in every day smoker, smokes 1-2 cigarettes daily Smoking cessation counseling provided Patient refuses nicotine replacement therapy (5) DVT prophylaxis Current Visit: No Status: Acute Assessment and plan: Heparin subcutaneous - Subjective Interval history: Patient seen and examined with family present at bedside. Reports a feeling better since admission. Tolerating clear liquid diet. Ultrasound of gallbladder noted patient to undergo cholecystectomy in a.m. - Constitutional Vitals: Temp Pulse Resp BP Pulse Ox 98.4 F 85 16 129/72 93 10/14/16 15:48 10/14/16 15:48 10/14/16 15:48 10/14/16 15:48 10/14/16 15:48 General appearance: Present: A&O X 3, no acute distress - Head Head exam: Present: atraumatic, normocephalic - Eye Eye exam: Present: normal appearance, conjuntiva pink, sclera anicteric - Respiratory Respiratory exam: Present: CTAB. Absent: accessory muscle use, rales, rhonchi, wheezes - Cardiovascular Cardiovascular exam: Present: RRR, +S1, +S2. Absent: diastolic murmur, gallop, rubs, systolic murmur - GI/Abdominal GI/Abdominal exam: Present: normal bowel sounds, soft. Absent: distended, tenderness - Extremities Exam Extremities exam: Present: warm, radial pulses palpable and symetrical. Absent : calf tenderness - Neurological Exam Neurological exam: Present: alert, oriented X3 - Psychiatric Psychiatric exam: Present: normal affect, normal mood Internal Medicine: Result - Labs CBC & Chem 7: 10/14/16 04:38 10/14/16 04:38 Labs: Short CBC 10/14/16 Range/Units 04:38 WBC 5.5 (4.3-11.1) K/mcL Hgb 10.4 L (12.9-16.9) g/dL Hct 33.3 L (37.5-50.1) % Plt Count 317 (140-400) K/mcL Neutrophils # 2.9 (1.6-8.9) K/mcL BMP 10/14/16 04:38 Sodium 139 Potassium 4.4 Chloride 104 Carbon Dioxide 27 BUN 27 H Creatinine 1.74 H Glucose 85 Calcium 8.5 L Liver Function 10/14/16 Range/Units 04:38 Total Bilirubin 1.0 (0.2-1.2) mg/dL AST 86 H (5-34) Units/L ALT 92 H (0-55) Units/L Alkaline Phosphatase 309 H (38-126) Units/L Albumin 2.7 L (3.5-5.0) g/dL Urine 10/13/16 Range/Units 18:30 Urine Color Dark Yellow (Yellow) Urine Clarity Hazy (Clear) Urine pH 6.0 (5.0-8.0) pH Units Ur Specific [place] 1.019 (1.010-1.025) Urine Protein 30 H (Neg-Trace) mg/dL Urine Glucose (UA) Normal (Normal) mg/dL - ABG Interpretation ABG results: PT/INR, D-dimer PT 11.1 Seconds (9.4-12.1) 10/13/16 14:46 - Impressions Impressions Gallbladder Ultrasound 10/14/16 12:00 IMPRESSION: Findings on this examination along with the CT are suspicious for calculus cholecystitis. Superimposed polyposis or adenomyomatosis may be present Dilation of the common bile duct to 10 mm. The etiology of this is not demonstrated. This could be further assessed with MRCP, or intraoperative cholangiogram if cholecystectomy is performed. D/ / Jus Rodriguez MD / Jus Rodriguez MD Interpreting Provider: Jus Rodriguez MD Consult Discharge Plan - Plan Referrals: Sheldon Gallagher DO [Primary Care Provider] -
[2016-10-14] MEDS: Gabapentin 300 MG CAPSULE PO SCH (20:44)
[2016-10-14] MEDS: Mirtazapine 15 MG TABLET PO SCH (20:45)
[2016-10-15] MEDS: 0.9 % Sodium Chloride 1,000 ML IVC SCH (01:21)
[2016-10-15 05:26] LABS: Basophils % 0.2 %; Eosinophils # 0.2 K/mcL (0.0-0.6); Eosinophils % 4.2 %; Hemoglobin 10.4 g/dL (12.9-16.9); Immature Granulocytes % 0.4 % (0-4); Lymphocytes # 1.2 K/mcL (0.6-4.6); Mean Corpuscular HGB Conc 31.5 g/dL (31.6-35.5); Mean Corpuscular Hemoglobin 26.2 pg (28.0-33.3); Mean Corpuscular Volume 83.1 fL (83.0-100.0); Mean Platelet Volume 9.4 fL (9.4-12.4); Monocytes # 0.9 K/mcL (0.0-1.3); Monocytes % 17.9 %; Neutrophils # 2.5 K/mcL (1.6-8.9); Platelet Count 294 K/mcL (140-400); Red Blood Count 3.97 M/mcL (4.19-5.50); Red Cell Distribution Width 15.1 % (11.5-14.5); Segmented Neutrophils % 52.3 %
[2016-10-15 05:44] LABS: Magnesium 1.7 mg/dL (1.6-2.6); Phosphorous 2.4 mg/dL (2.3-4.7)
[2016-10-15 05:47] LABS: Alanine Aminotransferase 63 Units/L (0-55); Albumin 2.8 g/dL (3.5-5.0); Albumin/Globulin Ratio 0.9 (1.1-2.2); Alkaline Phosphatase 260 Units/L (38-126); Aspartate Amino Transferase 50 Units/L (5-34); BUN/Creatinine Ratio 13 (6-26); Bilirubin,Total 0.9 mg/dL (0.2-1.2); Blood Urea Nitrogen 16 mg/dL (8-26); Calcium 8.5 mg/dL (8.6-10.8); Carbon Dioxide 26 mEq/L (19-29); Chloride 107 mEq/L (98-109); Globulin 3.2 g/dL (2.4-3.5); Glucose 109 mg/dL (70-99); Osmolality,Calculated 294 (280-300); Sodium 141 mEq/L (136-145); eGFR For African Americans > 60 (> 60); eGFR For Non-African Americans 55 (> 60)
[2016-10-15] MEDS ORDERED: *HR* Morphine 10 MG/ML VIAL ONE (07:10)
[2016-10-15] MEDS ORDERED: *HR* Propofol 200 MG/20 ML VIAL IVP ONE (07:10)
[2016-10-15] MEDS ORDERED: *HR* FentaNYL (PF) 100 MCG/2 ML VIAL ONE (07:10)
[2016-10-15] MEDS ORDERED: *HR* Rocuronium Bromide 50 MG/5 ML VIAL ONE (07:11)
[2016-10-15] MEDS ORDERED: Dexamethasone 4 MG/ML VIAL ONE (07:11)
[2016-10-15] MEDS ORDERED: *HR* Succinylcholine 200 MG/10 ML VIAL IVP ONE (07:11)
[2016-10-15] MEDS ORDERED: Ondansetron 4 MG/2 ML VIAL ONE (07:11)
[2016-10-15] MEDS ORDERED: Lidocaine -MPF 2% 2 ML VIAL ONE (07:11)
[2016-10-15] MEDS ORDERED: Bupivacaine/EPI 1:200k 0.25%PF 30 ML VIAL ONE (07:17)
--- NOTE | 2016-10-15 07:26 | Anesthesia Evaluation PreOp ---
Date of Encounter: 10/15/16 Time of Encounter: 07:24 - Past History Planned Operation: Laparoscopic Cholecystectomy Cardiac History: AL, HTN, Hyperlipidemia, Arrhythmia (paroxysmal A-Fib), Cardiac Surgery (CABG x 3 on 03/24/2016), Other (CAD) Pulmonary History: Smoker FORENSIC IDENTIFICATION SPECIALIST History: Denies Any Significant HX Other Medical History: Renal (acute kidney injury) Anesthesia History: No Prior Anesthetic Complications, Past Anesthesia Alcohol Use: none Drug use: none Medications and Allergies Duloxetine HCl [Cymbalta] 60 mg PO QAM 09/21/15 [History] Lisinopril [Zestril] 10 mg PO QAM 09/21/15 [History] Aspirin 81 mg PO DAILY #60 tab.chew 04/05/16 [Rx] Meloxicam [Mobic] 15 mg PO DAILY 05/26/16 [History] Metoprolol [Lopressor] 12.5 mg PO BID 05/26/16 [History] Multivitamin/Iron/Folic Acid [Centrum Complete Multivit Tab] 1 each PO DAILY 02/01 [History] Mirtazapine [Remeron] 15 mg PO HS 08/03/16 [History] Amiodarone [Cordarone] 200 mg PO DAILY 10/13/16 [History] Atorvastatin Calcium [Lipitor] 80 mg PO HS 10/13/16 [History] Docusate Sodium [Stool Softener] 100 mg PO DAILY PRN 10/13/16 [History] Gabapentin [Neurontin] 600 mg PO TID 10/13/16 [History] HYDROcodone/Acet 10/325 mg [[place] 10-325 mg] 1 tab PO QID 10/13/16 [History] Nitroglycerin [Nitrostat] 0.4 mg SL Q5M PRN 10/13/16 [History] Allergies No Known Allergies Allergy (Verified 10/13/16 14:20) - Meds/Allergy Pre-op Review Medications Reviewed: Yes Allergies Reviewed: Yes Beta Blockers on Current Med List: No Anesthesia Results - Labs 10/15/16 05:15 10/15/16 05:15 - Imaging EKG: report reviewed (04/12 2016 SR, low QRS voltage in precordial leads, NSST abnormality) Additional studies: 04/13/2016 Echo LVEF 55% hypokinesis of basal inferior wall and basal inferoseptum atypical septal motion c/w cardiac surgery mild MR no evidence of pulmonary HTN Anesthesia Exam Vital Signs/O2 Sat, Most Current Temp Pulse Resp BP Pulse Ox 98.8 F 84 18 131/66 96 10/15/16 04:33 10/15/16 04:33 10/15/16 04:33 10/15/16 04:33 10/15/16 04:33 Height: 5'7'' Weight: 154 lbs NPO (# of Hours): 8 Pain Scale: 0 Pain Scale Used: Numeric (1 - 10) - HEENT Pupil (Motor): EOMI Mallampati: II Teeth: Edentulous Oral Opening: Greater than 3 - FORENSIC IDENTIFICATION SPECIALIST LOC: Oriented FORENSIC IDENTIFICATION SPECIALIST Motor: Normal RUE, Normal LUE, Normal RLE, Normal LLE, Normal Face FORENSIC IDENTIFICATION SPECIALIST Sensory: Normal: RUE, LUE, RLE, LLE, Face - Cardiac Rhythm: Regular Murmur: None - Pulmonary Breath Sounds: bilateral Clear Respiratory Effort: Symmetrical Anesthesia Assess/Plan ASA Score: 3 Modified Jonathan Scale for Level of Consciousness: Cooperative, oriented, and tranquil Anesthetic Plan: General Monitoring Plan: Standard Monitors Recovery Plan: PACU
[2016-10-15] MEDS ORDERED: *HR* Morphine 2 MG/ML SYRINGE IVP PRN (08:52)
[2016-10-15] MEDS ORDERED: *HR* Phenylephrine 10 MG/ML VIAL ONE (09:28)
[2016-10-15] MEDS ORDERED: Neostigmine Methylsulfate 3 MG/3 ML SYRINGE ONE (09:35)
[2016-10-15] MEDS ORDERED: Ringers Solution, Lactated 1,000 ML IVC ONE (10:03)
--- NOTE | 2016-10-15 10:13 | Operative Note ---
Date of procedure: 10/15/16 Pre-op diagnosis: Acute cholecystitis, cholelithiasis Post-op diagnosis: other (Acute cholecystitis with hydrops, cholelithiasis) Procedure: Laparoscopic cholecystectomy Complications: None apparent Anesthesia: GETA Local Anesthetics: 0.25% Sensorcaine HCL with Epinephrine 1:200,000 SubQ (cc) ( 20 mL) Surgeon: Jose Elias Mireles Estimated blood loss (cc): 150 IV fluids (cc): 1,000 Specimen: gallbladder Condition: stable Disposition: PACU Procedure in Detail: The patient was brought to the operating room where he was placed supine upon the operating table. Patient was appropriately identified as to person and procedure. The accuracy of this information was confirmed by the procedure team. The patient was then intubated and anesthetized under the supervision of Dr. Alex Regalado. The abdomen was prepped and draped in usual sterile fashion. On examination under anesthesia, the gallbladder was not palpable. Several milliliters of 0.25% bupivacaine with 1-200,000 units epinephrine was infiltrated into the infraumbilical skin and subcutaneous tissue. A small transverse incision was made, dissection was carried to the fascia. The fascia was grasped and elevated. Additional bupivacaine with epinephrine was infiltrated into the fascia before it was incised. An 11 mm Xcel port was established. The rigid laparoscope was placed within the obturator to visualize passage through the layers of the anterior abdominal wall. Once the abdominal cavity was accessed, the obturator was replaced by the rigid laparoscope and the abdomen was insufflated with gaseous carbon dioxide. There was no visible injury from established in the port. Under direct visualization , 3 additional ports were placed along the right costal margin. Each site was infiltrated with the bupivacaine with epinephrine solution. The gallbladder was acutely inflamed with omentum densely adherent to it. The omentum was dissected and "peeled off" the gallbladder. The gallbladder was aspirated for approximately 60 mL of a clear turbid fluid. This was indicative of hydrops consistent with acute obstruction of the cystic duct corresponding to the patient's clinical presentation. The gallbladder was grasped and retracted cephalad. Additional dissection of the omentum was necessary to identify and skeletonize the cystic duct. The cystic duct was clipped and divided. The cystic artery was identified, clipped and divided. The gallbladder was dissected from the liver bed using the Ethicon harmonic yu. Due to the acute inflammation in the vicinity there was hemorrhagic inflammation along the liver bed. Once the gallbladder was from the liver bed, it was placed in endoscopic pouch and removed via the infraumbilical opening. The blood that accumulated in the gallbladder fossa was evacuated with an endoscopic suction device. Hemostasis was inspected and found to be adequate. However, with the acute inflammatory changes I opted to place a drain in the gallbladder fossa. A 5 mm Alpesh-Curtis drain was introduced via the infraumbilical port and exited through the 5 mm port anterior axillary line. The drain was positioned in the gallbladder fossa and secured to the anterior abdominal wall with interrupted 3-0 silk. The liver bed was again inspected for adequate hemostasis and then the pneumoperitoneum was evacuated and instrumentation removed. The fascia of the infraumbilical opening was closed with interrupted figure 8s 0 Vicryl using S retractors. The skin edges were approximated with subcuticular 4-0 Vicryl. The incisions were sealed with Dermabond dermal adhesive. The patient was taken to recovery in stable condition. Needle, sponge, and instrument counts were correct at the close of the case. Total volume of 0.25% bupivacaine with 1-200,000 units epinephrine used during this procedure, 20 mL.
[2016-10-15] MEDS ORDERED: Ondansetron 4 MG/2 ML VIAL IVP ONE ×2 (10:29→11:00)
--- NOTE | 2016-10-15 11:09 | Anesthesia Evaluation Post Op ---
Date of Encounter: 10/15/16 Time of Encounter: 11:08 - Vital Signs Vital Signs: Vital Signs/O2 Sat, Most Current Temp Pulse Resp BP Pulse Ox 97.6 F 83 16 136/78 100 10/15/16 11:00 10/15/16 11:00 10/15/16 11:00 10/15/16 11:00 10/15/16 11:00 - Lungs Lungs: Clear Ascult./Percussion - Airway Airway: Non-obstructed - Cardiovascular Regular Rate - Mental Status Mental Status: Asleep with brisk response to light stimulation - Pain Pain Scale: 2 Pain Scale used: Numeric (1 - 10) - Nausea Vomiting Nausea Vomiting: Responds to treatment with IV Meds - Hydration Hydration: NPO, Has not voided - Discharge PostOp Status: Transfer Patient to floor
--- NOTE | 2016-10-15 11:19 | Electrocardiograph Report ---
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
[2016-10-15] MEDS ORDERED: Ondansetron ODT 4 MG TAB.RAPDIS SL PRN (11:20)
[2016-10-15] MEDS ORDERED: Acetaminophen 325 MG TABLET PO PRN (11:20)
[2016-10-15] MEDS: Albuterol 2.5 MG/3 ML NEBULIZER IH SCH ×3 (11:20→22:14)
[2016-10-15] MEDS ORDERED: Nitroglycerin 0.4 MG TAB.SUBL SL PRN (11:20)
[2016-10-15] MEDS ORDERED: Naloxone 0.4 MG/ML INJ IVP PRN (11:20)
[2016-10-15] MEDS: Multivit/Ca/Min/Fe/FA 1 TAB TABLET PO SCH (12:04)
[2016-10-15] MEDS: Ringers Solution, Lactated 1,000 ML IVC SCH ×2 (12:05→19:43)
[2016-10-15] MEDS: Pantoprazole 40 MG VIAL IVP SCH (12:06)
[2016-10-15] MEDS: Aspirin 81 MG TAB.CHEW PO SCH (12:06)
[2016-10-15] MEDS: *HR* OxyCODONE/APAP 5/325 TABLET PO PRN ×2 (12:12→20:50)
[2016-10-15 12:16] LABS: Hematocrit 28.4 % (37.5-50.1)
[2016-10-15] MEDS ORDERED: *HR* Promethazine 25 MG/ML VIAL IVP PRN (13:12)
[2016-10-15] MEDS ORDERED: *HR* Morphine 2 MG/ML SYRINGE IVP ONE (13:20)
--- NOTE | 2016-10-15 13:29 | Internal Med Progress Note ---
Date of Encounter: 10/15/16 Time of Encounter: 13:26 - Assessment and plan (1) Acute cholecystitis Current Visit: Yes Status: Acute Assessment and plan: Surgical consultation appreciated S/P laparoscopic cholecystectomy Pain control Will give one time dose of morphine, if pain persists will start Dilaudid will add Phenergan 12.5mg IV q6h PRN n/v Discontinue abx (2) Acute kidney failure Current Visit: Yes Status: Acute Assessment and plan: Likely prerenal Renal function improved from previous day Continue IV fluids Continue to hold NELLI inhibitor, meloxicam We will continue to closely monitor Qualifiers: Acute renal failure type: unspecified Qualified Code(s): N17.9 - Acute kidney failure, unspecified (3) HTN (hypertension) Current Visit: No Status: Chronic Assessment and plan: Noted to be hypotensive in the ED Hypotension resolved at this time BP within acceptable range Continue to monitor off antihypertensives at this time Qualifiers: Hypertension type: essential hypertension Qualified Code(s): I10 - Essential (primary) hypertension (4) DVT prophylaxis Current Visit: No Status: Acute Assessment and plan: Heparin subcutaneous - Subjective Interval history: Patient seen and examined with family present at bedside. S/P Laproscopic Cholecystectomy. Reports of severe nausea refractory to Zofran and pain not adequately controlled with Percocet. Pt reported to have blood loss during the surgery and will closely monitor H&H. - Constitutional Vitals: Temp Pulse Resp BP Pulse Ox 97.3 F L 101 14 95/58 92 10/15/16 11:36 10/15/16 11:36 10/15/16 11:36 10/15/16 11:36 10/15/16 11:47 General appearance: Present: A&O X 3 (mild painful distress/nausea), pleasant, answers questions appropriately - Head Head exam: Present: atraumatic, normocephalic - Eye Eye exam: Present: normal appearance, conjuntiva pink, sclera anicteric - Respiratory Respiratory exam: Present: CTAB. Absent: accessory muscle use, rales, rhonchi, wheezes - Cardiovascular Cardiovascular exam: Present: RRR, +S1, +S2 - GI/Abdominal GI/Abdominal exam: Present: normal bowel sounds, soft. Absent: tenderness - Extremities Exam Extremities exam: Present: pedal edema, warm, radial pulses palpable and symetrical. Absent: calf tenderness - Neurological Exam Neurological exam: Present: alert, oriented X3 - Psychiatric Psychiatric exam: Present: normal affect, normal mood Internal Medicine: Result - Labs CBC & Chem 7: 10/15/16 11:54 10/15/16 05:15 Labs: Short CBC 10/15/16 10/15/16 Range/Units 05:15 11:54 WBC 4.8 (4.3-11.1) K/mcL Hgb 10.4 L 9.0 L (12.9-16.9) g/dL Hct 33.0 L 28.4 L (37.5-50.1) % Plt Count 294 (140-400) K/mcL Neutrophils # 2.5 (1.6-8.9) K/mcL BMP 10/15/16 05:15 Sodium 141 Potassium 4.0 Chloride 107 Carbon Dioxide 26 BUN 16 D Creatinine 1.28 H Glucose 109 H Calcium 8.5 L Liver Function 10/15/16 Range/Units 05:15 Total Bilirubin 0.9 (0.2-1.2) mg/dL AST 50 H (5-34) Units/L ALT 63 H (0-55) Units/L Alkaline Phosphatase 260 H (38-126) Units/L Albumin 2.8 L (3.5-5.0) g/dL - ABG Interpretation ABG results: PT/INR, D-dimer PT 11.1 Seconds (9.4-12.1) 10/13/16 14:46 Consult Discharge Plan - Plan Referrals: Sheldon Gallagher DO [Primary Care Provider] -
[2016-10-15] MEDS ORDERED: 0.9 % Sodium Chloride 1,000 ML IVC SCH (13:30)
[2016-10-15] MEDS: Promethazine 12.5 MG in 0.9 % Sodium Chloride 50 ML IVPB PRN ×2 (13:42→23:14)
[2016-10-15] MEDS ORDERED: 0.9 % Sodium Chloride 250 ML IVC ONE (17:05)
[2016-10-15 18:18] LABS: Hematocrit 26.3 % (37.5-50.1); Hemoglobin 8.3 g/dL (12.9-16.9)
[2016-10-15] MEDS: Gabapentin 300 MG CAPSULE PO SCH (20:50)
[2016-10-15] MEDS: Mirtazapine 15 MG TABLET PO SCH (20:50)
[2016-10-15] MEDS: *HR* HYDROmorphone (PF) 1 MG/ML SYRINGE IVP PRN (23:15)
[2016-10-16] MEDS: *HR* HYDROmorphone (PF) 1 MG/ML SYRINGE IVP PRN ×5 (00:53→19:55)
[2016-10-16] MEDS: *HR* OxyCODONE/APAP 5/325 TABLET PO PRN (04:38)
[2016-10-16] MEDS: Albuterol 2.5 MG/3 ML NEBULIZER IH SCH ×4 (05:03→22:38)
[2016-10-16 05:07] LABS: Hematocrit 26.9 % (37.5-50.1); Hemoglobin 8.6 g/dL (12.9-16.9); Immature Granulocytes % 0.6 % (0-4); Lymphocytes # 1.7 K/mcL (0.6-4.6); Mean Corpuscular Hemoglobin 26.7 pg (28.0-33.3); Mean Corpuscular Volume 83.5 fL (83.0-100.0); Mean Platelet Volume 9.7 fL (9.4-12.4); Monocytes # 3.6 K/mcL (0.0-1.3); Monocytes % 16.7 %; Platelet Count 467 K/mcL (140-400); Red Blood Count 3.22 M/mcL (4.19-5.50); Red Cell Distribution Width 15.8 % (11.5-14.5); Segmented Neutrophils % 74.7 %
[2016-10-16 05:21] LABS: Albumin 2.9 g/dL (3.5-5.0); Albumin/Globulin Ratio 0.9 (1.1-2.2); Bilirubin,Total 1.2 mg/dL (0.2-1.2); Calcium 8.3 mg/dL (8.6-10.8); Globulin 3.2 g/dL (2.4-3.5); Magnesium 1.6 mg/dL (1.6-2.6); Potassium 4.7 mEq/L (3.5-4.5); Total Protein 6.1 g/dL (6.0-8.3)
[2016-10-16 05:26] LABS: Phosphorous 4.6 mg/dL (2.3-4.7)
[2016-10-16] MEDS: Promethazine 12.5 MG in 0.9 % Sodium Chloride 50 ML IVPB PRN (06:36)
[2016-10-16] MEDS: Pantoprazole 40 MG VIAL IVP SCH (08:51)
[2016-10-16] MEDS: Aspirin 81 MG TAB.CHEW PO SCH (08:51)
[2016-10-16] MEDS: Multivit/Ca/Min/Fe/FA 1 TAB TABLET PO SCH (08:51)
[2016-10-16] MEDS: Piperacillin/Tazobactam 3.375 GM in D5% in Water (Mini-Bag+) 100 ML IVPB SCH ×3 (08:52→18:36)
[2016-10-16] MEDS: 0.9 % Sodium Chloride 1,000 ML IVC SCH ×3 (08:53→18:26)
--- NOTE | 2016-10-16 10:01 | Urology - Consult Note ---
Date of Encounter: 10/16/16 Time of Encounter: 09:43 - Assessment and Plan (1) Urinary retention Current Visit: Yes Status: Acute Assessment and plan: 76 year old man with a history of a bladder neck contracture. The last note was reviewed by Dr. Lee who was able to pass a flexible cystoscope. I was able to pass a 14 Jamaican coude catheter. His urine is clear. Continue catheter per primary team. I would recommend that he return for a voiding trial in [address] Lee. (2) Urethral stricture Current Visit: No Status: Acute Assessment and plan: He didn't require dilation today. Qualifiers: Urethral stricture type: post-procedural Qualified Code(s): N99.114 - Postprocedural urethral stricture, male, unspecified Urology CN:HPI Consult date: 10/16/16 Reason for consult Urology: Difficult Guy Requesting physician: Priscila Cronin History of present illness: 76 year old man status post lap cholecystectomy yesterday, POD #1. He has a history of a urethral stricture and had trouble with catheter placements after surgery in the past. He reports some suprapubic pain. He has had trouble voiding. He reports that he has some suprapubic tenderness. He is uncomfortable and wants to void. Past Med Surg Social Fam HX - Past Medical History Medical history: arthritis, asthma, atrial fibrillation, coronary artery disease , hyperlipidemia, hypertension, myocardial infarction, other Psychiatric history: anxiety, depression - Past Surgical History Surgical History: coronary bypass (CABG), orthopedic, other, prostatectomy - Social History Smoking Status: Former smoker Smokeless Tobacco Status: No Alcohol use: none Drug use: none - Family History Mother Living Status: Hx Family Cardiac Disorders: Yes (mi) Father Living Status: Hx Family Cardiac Disorders: Yes (self, brother,sister, mother) Hx Family Respiratory Disorders: Yes Hx Family Cancer: Yes (father) Hx Family GI Disorders: Yes (father) Hx Family Endocrine Disorder: Yes (brother,) Hx Family Neuromuscular Disorders: No Hx Family Neurologic Disorders: No Hx Family HEENT Disorders: No Hx Family Autoimmune Disorders: Yes (RA) Brother Hx Family Cardiac Disorders: Yes Medications and Allergies Duloxetine HCl [Cymbalta] 60 mg PO QAM 09/21/15 [History] Lisinopril [Zestril] 10 mg PO QAM 09/21/15 [History] Aspirin 81 mg PO DAILY #60 tab.chew 04/05/16 [Rx] Meloxicam [Mobic] 15 mg PO DAILY 05/26/16 [History] Metoprolol [Lopressor] 12.5 mg PO BID 05/26/16 [History] Multivitamin/Iron/Folic Acid [Centrum Complete Multivit Tab] 1 each PO DAILY 02/01 [History] Mirtazapine [Remeron] 15 mg PO HS 08/03/16 [History] Amiodarone [Cordarone] 200 mg PO DAILY 10/13/16 [History] Atorvastatin Calcium [Lipitor] 80 mg PO HS 10/13/16 [History] Docusate Sodium [Stool Softener] 100 mg PO DAILY PRN 10/13/16 [History] Gabapentin [Neurontin] 600 mg PO TID 10/13/16 [History] HYDROcodone/Acet 10/325 mg [[place] 10-325 mg] 1 tab PO QID 10/13/16 [History] Nitroglycerin [Nitrostat] 0.4 mg SL Q5M PRN 10/13/16 [History] Allergies No Known Allergies Allergy (Verified 10/13/16 14:20) Review of Systems - Constitutional no chills, no fever(s) - EENT Nose, mouth and throat: no dizziness - Cardiovascular no chest pain - Respiratory no dyspnea - Gastrointestinal no nausea, no vomiting - Genitourinary difficulty urinating, no flank pain, no hematuria - Musculoskeletal no back pain - Integumentary no erythema, no rash - Neurological no weakness - Psychiatric no suicidal ideation - Hematologic/Lymphatic no easy bleeding - Allergic/Immunologic no wheezing Exam Initial Vital Signs Temp Pulse Resp BP Pulse Ox 97.6 F 74 14 76/40 91 10/13/16 14:17 10/13/16 14:17 10/13/16 14:17 10/13/16 14:17 10/13/16 14:17 - General physical appearance Present: well developed, well nourished, no distress - Eyes Absent: icteric - ENT Present: normal nares - Neck Present: trachea midline - Respiratory Present: normal respiratory effort - Cardiovascular Cardiovascular exam IM: RRR - Abdomen Abdomen: Present: soft - Genitourinary normal penis with no external lesions Urology Results - Labs 10/16/16 05:00 10/16/16 05:00 Abnormal lab results WBC 21.4 K/mcL (4.3-11.1) H D 10/16/16 05:00 RBC 3.22 M/mcL (4.19-5.50) L 10/16/16 05:00 Hgb 8.6 g/dL (12.9-16.9) L 10/16/16 05:00 Hct 26.9 % (37.5-50.1) L 10/16/16 05:00 MCH 26.7 pg (28.0-33.3) L 10/16/16 05:00 RDW 15.8 % (11.5-14.5) H 10/16/16 05:00 Plt Count 467 K/mcL (140-400) H D 10/16/16 05:00 Neutrophils # 16.0 K/mcL (1.6-8.9) H 10/16/16 05:00 Monocytes # 3.6 K/mcL (0.0-1.3) H 10/16/16 05:00 Potassium 4.7 mEq/L (3.5-4.5) H 10/16/16 05:00 BUN 32 mg/dL (8-26) H D 10/16/16 05:00 Creatinine 2.08 mg/dL (0.72-1.25) H D 10/16/16 05:00 Est GFR ( Amer) 38 (> 60) L 10/16/16 05:00 Est GFR (Non-Af Amer) 31 (> 60) L 10/16/16 05:00 Glucose 228 mg/dL (70-99) H 10/16/16 05:00 Hemoglobin A1c 6.1 % (-5.6) H 10/14/16 05:43 Calcium 8.3 mg/dL (8.6-10.8) L 10/16/16 05:00 Direct Bilirubin 0.9 mg/dL (0.0-0.5) H 10/13/16 14:40 AST 46 Units/L (5-34) H 10/16/16 05:00 ALT 59 Units/L (0-55) H 10/16/16 05:00 Alkaline Phosphatase 238 Units/L (38-126) H 10/16/16 05:00 Albumin 2.9 g/dL (3.5-5.0) L 10/16/16 05:00 Albumin/Globulin Ratio 0.9 (1.1-2.2) L 10/16/16 05:00 TSH 0.187 mcIU/mL (0.350-4.840) L 10/14/16 05:43 Urine Protein 30 mg/dL (Neg-Trace) H 10/13/16 18:30 Urine Bilirubin Small (Negative) H 10/13/16 18:30 Urine Microscopic WBC 5-15 per hpf (0-3) H 10/13/16 18:30 Ur Squamous Epith Cells Many per lpf (None-Few) H 10/13/16 18:30 Granular Casts Few per lpf (None Seen) H 10/13/16 18:30 Ur Culture Indicated? YES (NO) A 10/13/16 18:30 Diabetes panel 10/16/16 Range/Units 05:00 Sodium 136 (136-145) mEq/L Potassium 4.7 H (3.5-4.5) mEq/L Chloride 103 (98-109) mEq/L Carbon Dioxide 22 (19-29) mEq/L BUN 32 H D (8-26) mg/dL Creatinine 2.08 H D (0.72-1.25) mg/dL Glucose 228 H (70-99) mg/dL Calcium 8.3 L (8.6-10.8) mg/dL AST 46 H (5-34) Units/L ALT 59 H (0-55) Units/L Alkaline Phosphatase 238 H (38-126) Units/L Albumin 2.9 L (3.5-5.0) g/dL Calcium panel 10/16/16 Range/Units 05:00 Calcium 8.3 L (8.6-10.8) mg/dL Phosphorus 4.6 D (2.3-4.7) mg/dL Albumin 2.9 L (3.5-5.0) g/dL Pituitary panel 10/16/16 Range/Units 05:00 Sodium 136 (136-145) mEq/L Potassium 4.7 H (3.5-4.5) mEq/L Chloride 103 (98-109) mEq/L Carbon Dioxide 22 (19-29) mEq/L BUN 32 H D (8-26) mg/dL Creatinine 2.08 H D (0.72-1.25) mg/dL Glucose 228 H (70-99) mg/dL Calcium 8.3 L (8.6-10.8) mg/dL Adrenal panel 10/16/16 Range/Units 05:00 Sodium 136 (136-145) mEq/L Potassium 4.7 H (3.5-4.5) mEq/L Chloride 103 (98-109) mEq/L Carbon Dioxide 22 (19-29) mEq/L BUN 32 H D (8-26) mg/dL Creatinine 2.08 H D (0.72-1.25) mg/dL Glucose 228 H (70-99) mg/dL Calcium 8.3 L (8.6-10.8) mg/dL Total Bilirubin 1.2 (0.2-1.2) mg/dL AST 46 H (5-34) Units/L ALT 59 H (0-55) Units/L Alkaline Phosphatase 238 H (38-126) Units/L Albumin 2.9 L (3.5-5.0) g/dL All other labs normal. Procedures:Urology - Catheter Insertion (Urinary) Prophylactic antibiotics given: No Bladder Scan/Ultrasound used before catheterization: Yes (500ml) Preparation: Povidone-Iodine Type of catheter inserted: 2 way Catheter Jamaican Size: 14 (Coude) Topical anesthesia used: Yes Results: successfully catheterized-immediate flow Urine Appearance: Clear Patient tolerated procedure: well Complications: none Consult Discharge Plan - Plan Referrals: Sheldon Gallagher DO [Primary Care Provider] -
[2016-10-16] MEDS ORDERED: 0.9 % Sodium Chloride 250 ML IVC ONE (10:03)
[2016-10-16] MEDS ORDERED: Promethazine 12.5 MG in 0.9 % Sodium Chloride 50 ML IVPB PRN (10:16)
--- NOTE | 2016-10-16 10:32 | General Surgery Progress Note ---
Date of Encounter: 10/16/16 Time of Encounter: 10:32 Subjective Patient reports: still having pain, nausea, vomiting Narrative: POD #1 - General Surgery Patient with n/v thru the night not completely controlled with zofran ODT or phenergan patient c/o abdominal pain and right shoulder pain - the abdominal pain is related to the lap cholecystectomy completed yesterday as well as likely intra peritoneal blood as a result of the cholecystectomy. The shoulder pain is due to the gaseous insufflation of the abdominal cavity During the laparoscopic procedure. The patient has remained afebrile, heart rate elevated at 116 117; respiratory rate 18-20; blood pressure 93/45 to 113/72 Lungs: Clear to auscultation but diminished inspiratory effort due to abdominal pain and likely diaphragmatic irritation Cardiac: Rate is slightly irregular and rapid as noted above; history of atrial fibrillation. Amiodarone was discontinued preop. Abdomen: Diffusely tender but active bowel sounds. ANNA with approximate 20 mL bloody drainage since discharge from PACU however it is noted that While the patient was in PACU approximately 200 mL of red clotting blood was evacuated via the ANNA. The port sites clean and dry. Laboratories: White count 21.4; leukocytosis likely due to the response to surgery Hemoglobin and hematocrit this morning 8.6 and 26.9 (yesterday 8.3/26.3 at 1800, 9.0/28.4 at noon); platelet count 467,000 Electrolytes, BUN, creatinine notable for potassium 4.7, BUN 32 and creatinine 2.08. Bilirubin 1.2, AST 46, ALP 59, alkaline phosphatase 238 - all improved from pre op status Impression/Plan: Postoperative day 1, status post laparoscopic cholecystectomy for acute cholecystitis with hydrops, cholelithiasis; hyperbilirubinemia Postoperative nausea and vomiting. Will d/c percocet and resume hydrocodone as patient was taking prior to surgery. Continue to treat sx. Increase frequency of phenergan, change zofran to IV. Evidence of intraperitoneal hemorrhage likely from the liver bed postop as evidenced by the ANNA drainage. This appears to have stabilized based on the serial H&H's. Continue to monitor. Hypotension with elevated BUN and creatinine - continue fluid resuscitation. The patient may require transfusion. Type and cross and hold. Atrial fibrillation CAD with history CABG Objective Vital Signs - Last 8 Hours Temp Pulse Resp BP Pulse Ox 10/16/16 08:24 93/45 10/16/16 06:44 97.7 F 117 20 96/50 85 10/16/16 05:03 18 90 10/16/16 04:42 98.3 F 116 18 113/72 92 Intake and Output 10/15/16 10/16/16 10/16/16 23:59 07:59 15:59 Intake Total 1100.50 / 1100.50 50.25 / 50.25 Output Total 95 / 95 400 / 400 Balance 1005.50 / 1005.50 50.25 / 50.25 -400 / -400 Intake: IV Fluids 1100.50 / 1100.50 50.25 / 50.25 Lactated Ringers 1,000 ML 1000 / 1000 @ 75 mls/hr IVC .[id number] CRYSTAL Rx#:[id number] Phenergan 12.5 MG In 0.9 100.50 / 100.50 50.25 / 50.25 % Sodium Chloride 50 ML @ 201 mls/hr IVPB Q6HR PRN Rx#:[id number] Oral 0 / 0 0 / 0 Output: Urine 75 / 75 Catheter 400 / 400 Wound Drainage Right Upper Quad Other: Meal Breakfast Percent of Meal Consumed 40% - Labs 10/16/16 05:00 10/16/16 05:00 Diabetes panel 10/16/16 Range/Units 05:00 Sodium 136 (136-145) mEq/L Potassium 4.7 H (3.5-4.5) mEq/L Chloride 103 (98-109) mEq/L Carbon Dioxide 22 (19-29) mEq/L BUN 32 H D (8-26) mg/dL Creatinine 2.08 H D (0.72-1.25) mg/dL Glucose 228 H (70-99) mg/dL Calcium 8.3 L (8.6-10.8) mg/dL AST 46 H (5-34) Units/L ALT 59 H (0-55) Units/L Alkaline Phosphatase 238 H (38-126) Units/L Albumin 2.9 L (3.5-5.0) g/dL Calcium panel 10/16/16 Range/Units 05:00 Calcium 8.3 L (8.6-10.8) mg/dL Phosphorus 4.6 D (2.3-4.7) mg/dL Albumin 2.9 L (3.5-5.0) g/dL Pituitary panel 10/16/16 Range/Units 05:00 Sodium 136 (136-145) mEq/L Potassium 4.7 H (3.5-4.5) mEq/L Chloride 103 (98-109) mEq/L Carbon Dioxide 22 (19-29) mEq/L BUN 32 H D (8-26) mg/dL Creatinine 2.08 H D (0.72-1.25) mg/dL Glucose 228 H (70-99) mg/dL Calcium 8.3 L (8.6-10.8) mg/dL Adrenal panel 10/16/16 Range/Units 05:00 Sodium 136 (136-145) mEq/L Potassium 4.7 H (3.5-4.5) mEq/L Chloride 103 (98-109) mEq/L Carbon Dioxide 22 (19-29) mEq/L BUN 32 H D (8-26) mg/dL Creatinine 2.08 H D (0.72-1.25) mg/dL Glucose 228 H (70-99) mg/dL Calcium 8.3 L (8.6-10.8) mg/dL Total Bilirubin 1.2 (0.2-1.2) mg/dL AST 46 H (5-34) Units/L ALT 59 H (0-55) Units/L Alkaline Phosphatase 238 H (38-126) Units/L Albumin 2.9 L (3.5-5.0) g/dL Consult Discharge Plan - Plan Referrals: Sheldon Gallagher DO [Primary Care Provider] -
[2016-10-16] MEDS: *HR* HYDROcodone/Acet 10/325 mg TABLET PO PRN ×2 (10:58→16:17)
[2016-10-16] MEDS: Ondansetron 4 MG/2 ML VIAL IVP PRN ×2 (10:58→16:17)
--- NOTE | 2016-10-16 11:04 | Internal Med Progress Note ---
Date of Encounter: 10/16/16 Time of Encounter: 09:15 - Assessment and plan (1) Acute cholecystitis Current Visit: Yes Status: Acute Assessment and plan: Surgical consultation appreciated S/P laparoscopic cholecystectomy-POD #1 Pain control Phenergan 12.5mg IV q4h PRN n/v worsening leukocytosis secondary to surgery Drop in H&H noted with worsening renal failure Will closely monitor H&h and transfuse as needed Post op care as per surgery (2) Acute kidney failure Current Visit: Yes Status: Acute Assessment and plan: Renal function worsened from previous day likely secondary to hypotension Will hold nephrotoxic agents closely monitor BP BP within acceptable range at this time continue IV fluids Qualifiers: Acute renal failure type: unspecified Qualified Code(s): N17.9 - Acute kidney failure, unspecified (3) HTN (hypertension) Current Visit: No Status: Chronic Assessment and plan: Noted to be hypotensive post-op continue IV fluids hold antihypertensive medications at this time closely monitor BP Qualifiers: Hypertension type: essential hypertension Qualified Code(s): I10 - Essential (primary) hypertension (4) DVT prophylaxis Current Visit: No Status: Acute Assessment and plan: Hold anticoagulation at this time given acute bleed SCD for dvt ppx (5) Anemia Current Visit: Yes Status: Acute Assessment and plan: acute blood loss anemia Post-op H&H stabilized at this time, however persistent bleeding and hypotension, patient may require PRBC transfusion will closely monitor and transfuse as needed Qualifiers: Anemia type: unspecified type Qualified Code(s): D64.9 - Anemia, unspecified (6) Atrial fibrillation with rapid ventricular response Current Visit: No Status: Chronic Assessment and plan: Amiodarone was held preoperatively will restart at this time (7) Urinary retention Current Visit: Yes Status: Acute Assessment and plan: urology consultation appreciated storey catheter inserted by Dr. Garnica - Subjective Interval history: Patient seen and examined with family present at bedside. S/P Laproscopic Cholecystectomy-POD #1 Reported of refractory nausea and vomiting, with diffuse abd discomfort. Noted to have worsening leukocytosis and ROBERTO CARLOS Unable to void and given history of uretheral strictures, urology was consulted and storey catheter was placed. Noted to remain hypotensive requiring fluid boluses - Constitutional Vitals: Temp Pulse Resp BP Pulse Ox 97.8 F 115 18 122/74 95 10/16/16 10:53 10/16/16 10:53 10/16/16 10:53 10/16/16 10:53 10/16/16 10:53 General appearance: Present: mild distress (painful distress/nausea), A&O X 3, pleasant, answers questions appropriately - Head Head exam: Present: atraumatic, normocephalic - Respiratory Respiratory exam: Present: decreased breath sounds. Absent: respiratory distress, stridor, wheezes, tachypnea - Cardiovascular Cardiovascular exam: Present: +S1, +S2, tachycardia - GI/Abdominal GI/Abdominal exam: Present: hypoactive bowel sounds, tenderness, no peritoneal signs Additional comments: ANNA drain in place with 10cc of bloddy discharge, saturated dressing intact at the surgical site - Extremities Exam Extremities exam: Present: pedal edema, warm, radial pulses palpable and symetrical. Absent: calf tenderness - Neurological Exam Neurological exam: Present: alert, oriented X3 Internal Medicine: Result - Labs CBC & Chem 7: 10/16/16 05:00 10/16/16 05:00 Labs: Short CBC 10/15/16 10/15/16 10/16/16 Range/Units 11:54 18:12 05:00 WBC 21.4 H D (4.3-11.1) K/mcL Hgb 9.0 L 8.3 L 8.6 L (12.9-16.9) g/dL Hct 28.4 L 26.3 L 26.9 L (37.5-50.1) % Plt Count 467 H D (140-400) K/mcL Neutrophils # 16.0 H (1.6-8.9) K/mcL BMP 10/16/16 05:00 Sodium 136 Potassium 4.7 H Chloride 103 Carbon Dioxide 22 BUN 32 H D Creatinine 2.08 H D Glucose 228 H Calcium 8.3 L Liver Function 10/16/16 Range/Units 05:00 Total Bilirubin 1.2 (0.2-1.2) mg/dL AST 46 H (5-34) Units/L ALT 59 H (0-55) Units/L Alkaline Phosphatase 238 H (38-126) Units/L Albumin 2.9 L (3.5-5.0) g/dL - ABG Interpretation ABG results: PT/INR, D-dimer PT 11.1 Seconds (9.4-12.1) 10/13/16 14:46 Consult Discharge Plan - Plan Referrals: Sheldon Gallagher DO [Primary Care Provider] -
[2016-10-16] MEDS: *HR* Amiodarone 200 MG TABLET PO SCH (11:43)
[2016-10-16 18:34] LABS: Hematocrit 23.5 % (37.5-50.1); Hemoglobin 7.4 g/dL (12.9-16.9)
[2016-10-16] MEDS: Gabapentin 300 MG CAPSULE PO SCH (20:00)
[2016-10-16] MEDS: Mirtazapine 15 MG TABLET PO SCH (20:01)
[2016-10-16] MEDS ORDERED: 0.9 % Sodium Chloride 500 ML ONE (20:43)
[2016-10-17] MEDS ORDERED: 0.9 % Sodium Chloride 500 ML ONE (00:55)
[2016-10-17] MEDS: Piperacillin/Tazobactam 3.375 GM in D5% in Water (Mini-Bag+) 100 ML IVPB SCH ×4 (03:32→23:31)
[2016-10-17] MEDS: Albuterol 2.5 MG/3 ML NEBULIZER IH SCH ×4 (03:51→23:25)
[2016-10-17 05:03] LABS: Basophils % 0.1 %; Eosinophils % 0.1 %; Hematocrit 26.4 % (37.5-50.1); Hemoglobin 8.6 g/dL (12.9-16.9); Immature Granulocytes % 0.7 % (0-4); Lymphocytes # 1.7 K/mcL (0.6-4.6); Lymphocytes % 8.5 %; Mean Corpuscular HGB Conc 32.6 g/dL (31.6-35.5); Mean Corpuscular Hemoglobin 28.3 pg (28.0-33.3); Mean Corpuscular Volume 86.8 fL (83.0-100.0); Mean Platelet Volume 9.9 fL (9.4-12.4); Monocytes # 2.8 K/mcL (0.0-1.3); Neutrophils # 15.2 K/mcL (1.6-8.9); Platelet Count 301 K/mcL (140-400); Red Blood Count 3.04 M/mcL (4.19-5.50); Red Cell Distribution Width 15.8 % (11.5-14.5); Segmented Neutrophils % 76.6 %
[2016-10-17 05:14] LABS: Magnesium 1.5 mg/dL (1.6-2.6); Phosphorous 2.8 mg/dL (2.3-4.7); Potassium 4.3 mEq/L (3.5-4.5)
--- NOTE | 2016-10-17 07:09 | Urology Progress Note ---
Date of Encounter: 10/17/16 Time of Encounter: 07:08 - Assessment and Plan (1) Urinary retention Current Visit: Yes Status: Acute Assessment and plan: s/p catheter placement. 1. Continue catheter upon discharge. He can follow up with Dr. Lee in 1 week for a voiding trial. 2. will sign off. Call with questions. (2) Urethral stricture Current Visit: No Status: Acute Qualifiers: Urethral stricture type: post-procedural Qualified Code(s): N99.114 - Postprocedural urethral stricture, male, unspecified Progress Note Narrative: Doing well after catheter placement. Urine is clear. Objective Initial Vital Signs Temp Pulse Resp BP Pulse Ox 97.6 F 74 14 76/40 91 10/13/16 14:17 10/13/16 14:17 10/13/16 14:17 10/13/16 14:17 10/13/16 14:17 - General physical appearance Present: well developed, well nourished, no distress - Respiratory Present: normal respiratory effort - Abdomen Present: soft - Genitourinary Urine Appearance: Present: Clear - Labs 10/17/16 04:55 10/17/16 04:55 Diabetes panel 10/17/16 Range/Units 04:55 Sodium 134 L (136-145) mEq/L Potassium 4.3 (3.5-4.5) mEq/L Chloride 103 (98-109) mEq/L Carbon Dioxide 23 (19-29) mEq/L BUN 41 H (8-26) mg/dL Creatinine 1.84 H (0.72-1.25) mg/dL Glucose 184 H (70-99) mg/dL Calcium 8.0 L (8.6-10.8) mg/dL Calcium panel 10/17/16 Range/Units 04:55 Calcium 8.0 L (8.6-10.8) mg/dL Phosphorus 2.8 (2.3-4.7) mg/dL Pituitary panel 10/17/16 Range/Units 04:55 Sodium 134 L (136-145) mEq/L Potassium 4.3 (3.5-4.5) mEq/L Chloride 103 (98-109) mEq/L Carbon Dioxide 23 (19-29) mEq/L BUN 41 H (8-26) mg/dL Creatinine 1.84 H (0.72-1.25) mg/dL Glucose 184 H (70-99) mg/dL Calcium 8.0 L (8.6-10.8) mg/dL Adrenal panel 10/17/16 Range/Units 04:55 Sodium 134 L (136-145) mEq/L Potassium 4.3 (3.5-4.5) mEq/L Chloride 103 (98-109) mEq/L Carbon Dioxide 23 (19-29) mEq/L BUN 41 H (8-26) mg/dL Creatinine 1.84 H (0.72-1.25) mg/dL Glucose 184 H (70-99) mg/dL Calcium 8.0 L (8.6-10.8) mg/dL - VTE Documentation of Mechanical Device: Intermittent pneumatic compression device Consult Discharge Plan - Plan Referrals: hSeldon Gallagher DO [Primary Care Provider] -
[2016-10-17] MEDS ORDERED: Magnesium Sulfate 1 GM in D5% in Water 100 ML IVPB ONE (07:44)
[2016-10-17] MEDS: 0.9 % Sodium Chloride 1,000 ML IVC SCH ×3 (07:52→20:58)
[2016-10-17] MEDS: *HR* Amiodarone 200 MG TABLET PO SCH (08:44)
[2016-10-17] MEDS: Aspirin 81 MG TAB.CHEW PO SCH (08:44)
[2016-10-17] MEDS: Multivit/Ca/Min/Fe/FA 1 TAB TABLET PO SCH (08:44)
[2016-10-17] MEDS: Pantoprazole 40 MG VIAL IVP SCH (08:45)
--- NOTE | 2016-10-17 09:07 | Electrocardiograph Report ---
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
[2016-10-17] MEDS: *HR* HYDROcodone/Acet 10/325 mg TABLET PO PRN ×3 (10:40→22:16)
--- NOTE | 2016-10-17 11:32 | General Surgery Progress Note ---
Date of Encounter: 10/17/16 Time of Encounter: 11:22 Subjective Patient reports: feels better, pain is less Narrative: General Surgery: POD #2 Patient feeling better, pain is better controlled, nausea vomiting is resolved; right shoulder pain has abated. Abdominal pain persists but as noted above is better controlled. Maximum temperature 99.6, heart rate remains elevated approximately 110 to 115; respiratory rate 17; blood pressure 105/62. Lungs: Clear with better aeration and inspiratory effort Abdomen: Remains diffusely tender but diminished from yesterday's exam. Active bowel sounds. Port sites clean and dry. ANNA output for calendar day 10/16/2016, 400 mL, 250mL so far tody the drainage is bile stained. Laboratories: White count slightly improved to 19.8; hemoglobin and hematocrit currently 8.6/26.4 after having decreased to 7.4 and 23.5 for which 2 units packed red blood cells were transfused; platelet count 301,000 Electrolytes within normal range; potassium 4.3, BUN 41, Cr improved to 1.84 , eGFR - 36 (yesterday 31) Pathology pending Impression: POD #2 s/p laparoscopic cholecystectomy for acute cholecystitis with hydrops, cholelithiasis and hyperbilirubinemia Postoperative nausea vomiting appears to be resolved Acute blood loss anemia - status post transfusion 2 units packed cells Atrial fibrillation - persistent rapid rate Hypotension improved Renal status also improved but still diminished from immediate pre op status evidence post op bile leak - bile staining in ANNA reservoir Recommendations : ambulate continue IV fluid hydration for diminished renal status recheck labs in AM; may require further evaluation of the bile leak Objective Vital Signs - Last 8 Hours Temp Pulse Resp BP Pulse Ox 10/17/16 10:21 99.6 F 110 17 105/62 97 10/17/16 08:15 95 10/17/16 07:40 99.3 F 115 17 104/61 95 10/17/16 04:37 98.3 F 115 18 96/51 96 10/17/16 03:51 16 91 Intake and Output 10/16/16 10/17/16 10/17/16 23:59 07:59 15:59 Intake Total 1150 / 1150 350 / 350 240 / 240 Output Total 750 / 750 475 / 475 75 / 75 Balance 400 / 400 -125 / -125 165 / 165 Intake: IV Fluids 850 / 850 0.9 % Sodium Chloride 1, 750 / 750 000 ML @ 100 mls/hr IVC . Q10H [facility] Rx#:[id number] Zosyn 3.375 GM In 100 / 100 Dextrose 5% (Minibag+) 100 ML 100 ML @ 25 mls/hr IVPB Q8H [facility] Rx#: [id number] Oral 300 / 300 0 / 0 240 / 240 Blood Product 0 / 0 350 / 350 Rbcs Leuko Poor As-1 0 / 0 Unit [id number] Rbcs Leuko Poor As-3 Ph 350 / 350 Unit [id number] Output: Urine 0 / 0 Straight Cath 350 / 350 Catheter 300 / 300 Wound Drainage 400 / 400 175 / 175 75 / 75 Right Upper Quad 400 / 400 175 / 175 75 / 75 Other: Meal Dinner Breakfast Percent of Meal Consumed 100% 100% Weight 73 kg Patient Weight 10/17/16 23:59 Weight 73 kg - Labs 10/17/16 04:55 10/17/16 04:55 Diabetes panel 10/17/16 Range/Units 04:55 Sodium 134 L (136-145) mEq/L Potassium 4.3 (3.5-4.5) mEq/L Chloride 103 (98-109) mEq/L Carbon Dioxide 23 (19-29) mEq/L BUN 41 H (8-26) mg/dL Creatinine 1.84 H (0.72-1.25) mg/dL Glucose 184 H (70-99) mg/dL Calcium 8.0 L (8.6-10.8) mg/dL Calcium panel 10/17/16 Range/Units 04:55 Calcium 8.0 L (8.6-10.8) mg/dL Phosphorus 2.8 (2.3-4.7) mg/dL Pituitary panel 10/17/16 Range/Units 04:55 Sodium 134 L (136-145) mEq/L Potassium 4.3 (3.5-4.5) mEq/L Chloride 103 (98-109) mEq/L Carbon Dioxide 23 (19-29) mEq/L BUN 41 H (8-26) mg/dL Creatinine 1.84 H (0.72-1.25) mg/dL Glucose 184 H (70-99) mg/dL Calcium 8.0 L (8.6-10.8) mg/dL Adrenal panel 10/17/16 Range/Units 04:55 Sodium 134 L (136-145) mEq/L Potassium 4.3 (3.5-4.5) mEq/L Chloride 103 (98-109) mEq/L Carbon Dioxide 23 (19-29) mEq/L BUN 41 H (8-26) mg/dL Creatinine 1.84 H (0.72-1.25) mg/dL Glucose 184 H (70-99) mg/dL Calcium 8.0 L (8.6-10.8) mg/dL - VTE Documentation of Mechanical Device: Intermittent pneumatic compression device Consult Discharge Plan - Plan Referrals: Sheldon Gallagher DO [Primary Care Provider] - 10/24/16 11:00 am (Please follow up as schedule...)
[2016-10-17] MEDS: *HR* HYDROmorphone (PF) 1 MG/ML SYRINGE IVP PRN ×2 (11:41→16:13)
--- NOTE | 2016-10-17 11:44 | Internal Med Progress Note ---
Date of Encounter: 10/17/16 Time of Encounter: 11:42 - Assessment and plan (1) Acute cholecystitis Current Visit: Yes Status: Acute Assessment and plan: Surgical consultation appreciated S/P laparoscopic cholecystectomy-POD #2 Pain control Phenergan 12.5mg IV q4h PRN n/v leukocytosis secondary to surgery Acute blood loss anemia postoperatively s/p 2units PRBC transfusion repeat H&H within acceptable range will continue to closely monitor Continue Post op care as per surgery pt encouraged to get out of bed to chair and ambulate as tolerated (2) Acute kidney failure Current Visit: Yes Status: Acute Assessment and plan: Renal function improved from previous day likely secondary to hypotension (Hypotension improved) Will hold nephrotoxic agents closely monitor BP BP within acceptable range at this time continue IV fluids Qualifiers: Acute renal failure type: unspecified Qualified Code(s): N17.9 - Acute kidney failure, unspecified (3) HTN (hypertension) Current Visit: No Status: Chronic Assessment and plan: Noted to be hypotensive post-op continue IV fluids BP within acceptable limits Restarted home dose of Metoprolol and patient tolerating medication well closely monitor BP Qualifiers: Hypertension type: essential hypertension Qualified Code(s): I10 - Essential (primary) hypertension (4) DVT prophylaxis Current Visit: No Status: Acute Assessment and plan: Hold anticoagulation at this time given acute bleed SCD for dvt ppx (5) Anemia Current Visit: Yes Status: Acute Assessment and plan: acute blood loss anemia Post-op s/p 2unit PrBC transfusion repeat H&H within acceptable range will closely monitor Qualifiers: Anemia type: unspecified type Qualified Code(s): D64.9 - Anemia, unspecified (6) Atrial fibrillation with rapid ventricular response Current Visit: No Status: Chronic Assessment and plan: Restarted Metoprolol Continue Amiodarone noted to be in Sinus tachycardia likely secondary to painful distress (7) Urinary retention Current Visit: Yes Status: Acute Assessment and plan: urology consultation appreciated storey catheter inserted by Dr. Garnica (8) Electrolyte abnormality Current Visit: Yes Status: Acute Assessment and plan: Hypomagnesemia Mg supplemented continue to monitor electrolytes and replace as needed - Subjective Interval history: Patient seen and examined with family present at bedside. S/P Laproscopic Cholecystectomy-POD #2 Pain better controlled Nausea resolved s/p 2unit PRBC transfusion noted to have sinus tachycardia likely secondary to painful distress. Restarted home dose of Metoprolol and continuing amiodarone. Rate better controlled with pain control Able to tolerate PO intake this morning - Constitutional Vitals: Temp Pulse Resp BP Pulse Ox 99.6 F 110 17 105/62 97 10/17/16 10:21 10/17/16 10:21 10/17/16 10:21 10/17/16 10:21 10/17/16 10:21 General appearance: Present: A&O X 3, pleasant, no acute distress, answers questions appropriately - Eye Eye exam: Present: normal appearance, conjuntiva pink, sclera anicteric - Respiratory Respiratory exam: Absent: respiratory distress, wheezes (decreased inspiratory effort ) - Cardiovascular Cardiovascular exam: Present: +S1, +S2, tachycardia - GI/Abdominal GI/Abdominal exam: Present: soft, tenderness (diffuse tenderness with palpation , ANNA drain in place ) - Extremities Exam Extremities exam: Present: warm, radial pulses palpable and symetrical. Absent : calf tenderness, pedal edema - Neurological Exam Neurological exam: Present: alert, oriented X3 Internal Medicine: Result - Labs CBC & Chem 7: 10/17/16 04:55 10/17/16 04:55 Labs: Short CBC 10/16/16 10/17/16 Range/Units 18:19 04:55 WBC 19.8 H (4.3-11.1) K/mcL Hgb 7.4 L 8.6 L (12.9-16.9) g/dL Hct 23.5 L 26.4 L (37.5-50.1) % Plt Count 301 (140-400) K/mcL Neutrophils # 15.2 H (1.6-8.9) K/mcL BMP 10/17/16 04:55 Sodium 134 L Potassium 4.3 Chloride 103 Carbon Dioxide 23 BUN 41 H Creatinine 1.84 H Glucose 184 H Calcium 8.0 L - ABG Interpretation ABG results: PT/INR, D-dimer PT 11.1 Seconds (9.4-12.1) 10/13/16 14:46 - Impressions Impressions Chest X-Ray 10/16/16 21:05 IMPRESSION: Patchy retrocardiac opacities and opacities within the right middle lobe concerning for pneumonia given history of fever. D/ / Harris Chow MD / Harris Chow MD Interpreting Provider: Harris Chow MD - VTE Documentation of Mechanical Device: Intermittent pneumatic compression device Consult Discharge Plan - Plan Referrals: Sheldon Gallagher DO [Primary Care Provider] - 10/24/16 11:00 am (Please follow up as schedule...)
[2016-10-17] MEDS: Gabapentin 300 MG CAPSULE PO SCH (20:57)
[2016-10-17] MEDS: Mirtazapine 15 MG TABLET PO SCH (20:58)
[2016-10-18] MEDS: Albuterol 2.5 MG/3 ML NEBULIZER IH SCH ×4 (04:01→22:20)
[2016-10-18 04:27] LABS: Basophils % 0.1 %; Eosinophils # 0.2 K/mcL (0.0-0.6); Eosinophils % 1.6 %; Hematocrit 24.7 % (37.5-50.1); Immature Granulocytes % 0.7 % (0-4); Lymphocytes # 1.4 K/mcL (0.6-4.6); Lymphocytes % 11.6 %; Mean Corpuscular HGB Conc 32.4 g/dL (31.6-35.5); Mean Corpuscular Hemoglobin 28.4 pg (28.0-33.3); Mean Corpuscular Volume 87.6 fL (83.0-100.0); Mean Platelet Volume 9.4 fL (9.4-12.4); Monocytes # 1.2 K/mcL (0.0-1.3); Monocytes % 10.2 %; Neutrophils # 9.3 K/mcL (1.6-8.9); Platelet Count 257 K/mcL (140-400); Red Blood Count 2.82 M/mcL (4.19-5.50); Red Cell Distribution Width 16.1 % (11.5-14.5); Segmented Neutrophils % 75.8 %
[2016-10-18 04:51] LABS: Alanine Aminotransferase 27 Units/L (0-55); Albumin 2.2 g/dL (3.5-5.0); Albumin/Globulin Ratio 0.7 (1.1-2.2); Alkaline Phosphatase 148 Units/L (38-126); Aspartate Amino Transferase 26 Units/L (5-34); BUN/Creatinine Ratio 18 (6-26); Blood Urea Nitrogen 21 mg/dL (8-26); Calcium 7.8 mg/dL (8.6-10.8); Carbon Dioxide 26 mEq/L (19-29); Chloride 101 mEq/L (98-109); Glucose 134 mg/dL (70-99); Osmolality,Calculated 283 (280-300); Potassium 3.6 mEq/L (3.5-4.5); Sodium 134 mEq/L (136-145); Total Protein 5.2 g/dL (6.0-8.3); eGFR For African Americans > 60 (> 60); eGFR For Non-African Americans > 60 (> 60)
[2016-10-18 04:54] LABS: Magnesium 1.9 mg/dL (1.6-2.6); Phosphorous 1.9 mg/dL (2.3-4.7)
[2016-10-18] MEDS: *HR* HYDROmorphone (PF) 1 MG/ML SYRINGE IVP PRN (05:06)
[2016-10-18] MEDS: 0.9 % Sodium Chloride 1,000 ML IVC SCH ×3 (07:12→23:45)
[2016-10-18] MEDS ORDERED: Sodium Phosphate 30 MMOL in D5% in Water 100 ML IVPB ONE (07:40)
[2016-10-18] MEDS: Piperacillin/Tazobactam 3.375 GM in D5% in Water (Mini-Bag+) 100 ML IVPB SCH ×3 (08:10→23:44)
[2016-10-18] MEDS: Pantoprazole 40 MG VIAL IVP SCH (08:11)
[2016-10-18] MEDS: Multivit/Ca/Min/Fe/FA 1 TAB TABLET PO SCH (08:12)
[2016-10-18] MEDS: Aspirin 81 MG TAB.CHEW PO SCH (08:12)
[2016-10-18] MEDS: *HR* Amiodarone 200 MG TABLET PO SCH (08:19)
--- NOTE | 2016-10-18 09:41 | Electrocardiograph Report ---
[address] [address] Test Date: 2016-10-17 Pat Name: Yaron Lopez Department: 112 Room: 2A23 Gender: M [facility] Consultant: BP : 1940 Requested By: Priscila Cronin Order Number: [id number] Reading MD: Nena Philip Measurements Intervals [place] Rate: 111 P: 48 DE: 147 QRS: 23 QRSD: 96 T: 60 QT: 294 QTc: 360 Interpretive Statements SINUS TACHYCARDIA NONSPECIFIC ST \T\ T-WAVE ABNORMALITY ABNORMAL RHYTHM ECG Electronically Signed On 10-18-2016 9:40:33 EDT by Nena Philip
[2016-10-18] MEDS: Sennosides/Docusate Sodium TABLET PO SCH ×2 (12:49→20:16)
--- NOTE | 2016-10-18 13:20 | General Surgery Progress Note ---
Date of Encounter: 10/18/16 Time of Encounter: 12:55 Subjective Patient reports: no new complaints, feels better, tolerating a regular diet Narrative: General surgery : POD#3 Patient feeling better, pain is markedly diminished. No nausea or vomiting. The patient is tolerating a regular diet. Lungs: clear to auscultation with better inspiratory effort. No obvious abdominal pain with inspiration Abdomen: Soft, minimal tenderness. Active bowel sounds. Port sites clean and dry ANNA: Output for calendar day 10/17/16 approximately 250 mL; output so far today 50 mL - diminishing but still bile stained Guy: Urine output 300 mL for calendar day 10/17/16; 650 mL so far today Laboratories: Leukocytosis is improved to 12.2; hemoglobin 8.0 hematocrit 24.7 - slightly decreased in the last 24 hours but likely due to IV fluids Platelet count 257,000. Sodium 134, low but stable; potassium 3.6. The one has normalized to 21 and creatinine has normalized to 1.16; eGFR >60 Bilirubin 1.0; AST 26; ALT 27; alkaline phosphatase 148 - significantly improved Protein low at 5.2, albumin low at 2.2 Impression: Postoperative day 3, status post laparoscopic cholecystectomy Postoperative nausea and vomiting resolved Acute blood loss anemia - S post transfusion 2 units packed cells, blood counts essentially stable Hyponatremia stable without obvious sequela Atrial fibrillation - Ventricular rate improved but still high 90s, range 94- 102 Hyperbilirubinemia and abnormal LFTs resolved and or improving Hypoproteinemia, hypoalbuminemia - expected to resolve now that abdominal pain, nausea, vomiting have resolved. It is anticipated that the patient will ingest more nutrition with return of his appetite. Renal status has normalized Continue ANNA output with bilious staining - possible bile leak. Will check with HB scan Objective Vital Signs - Last 8 Hours Temp Pulse Resp BP Pulse Ox 10/18/16 11:44 98.5 F 94 16 94/56 96 10/18/16 07:32 99.5 F 96 16 102/57 90 Intake and Output 10/17/16 10/18/16 10/18/16 23:59 07:59 15:59 Intake Total 1100 / 1100 1100 / 1100 Output Total 700 / 700 Balance 1100 / 1100 400 / 400 Intake: IV Fluids 1100 / 1100 1100 / 1100 0.9 % Sodium Chloride 1, 1000 / 1000 1000 / 1000 000 ML @ 100 mls/hr IVC . Q10H [facility] Rx#:[id number] Zosyn 3.375 GM In 100 / 100 100 / 100 Dextrose 5% (Minibag+) 100 ML 100 ML @ 25 mls/hr IVPB Q8H [facility] Rx#: [id number] Output: Catheter 650 / 650 Wound Drainage 50 / 50 Right Upper Quad 50 / 50 Other: Weight 78.3 kg Patient Weight 10/18/16 23:59 Weight 78.3 kg - Labs 10/18/16 04:09 10/18/16 04:09 Diabetes panel 10/18/16 Range/Units 04:09 Sodium 134 L (136-145) mEq/L Potassium 3.6 (3.5-4.5) mEq/L Chloride 101 (98-109) mEq/L Carbon Dioxide 26 (19-29) mEq/L BUN 21 D (8-26) mg/dL Creatinine 1.16 (0.72-1.25) mg/dL Glucose 134 H (70-99) mg/dL Calcium 7.8 L (8.6-10.8) mg/dL AST 26 (5-34) Units/L ALT 27 (0-55) Units/L Alkaline Phosphatase 148 H (38-126) Units/L Albumin 2.2 L D (3.5-5.0) g/dL Calcium panel 10/18/16 10/18/16 Range/Units 04:09 04:09 Calcium 7.8 L (8.6-10.8) mg/dL Phosphorus 1.9 L (2.3-4.7) mg/dL Albumin 2.2 L D (3.5-5.0) g/dL Pituitary panel 10/18/16 Range/Units 04:09 Sodium 134 L (136-145) mEq/L Potassium 3.6 (3.5-4.5) mEq/L Chloride 101 (98-109) mEq/L Carbon Dioxide 26 (19-29) mEq/L BUN 21 D (8-26) mg/dL Creatinine 1.16 (0.72-1.25) mg/dL Glucose 134 H (70-99) mg/dL Calcium 7.8 L (8.6-10.8) mg/dL Adrenal panel 10/18/16 Range/Units 04:09 Sodium 134 L (136-145) mEq/L Potassium 3.6 (3.5-4.5) mEq/L Chloride 101 (98-109) mEq/L Carbon Dioxide 26 (19-29) mEq/L BUN 21 D (8-26) mg/dL Creatinine 1.16 (0.72-1.25) mg/dL Glucose 134 H (70-99) mg/dL Calcium 7.8 L (8.6-10.8) mg/dL Total Bilirubin 1.0 (0.2-1.2) mg/dL AST 26 (5-34) Units/L ALT 27 (0-55) Units/L Alkaline Phosphatase 148 H (38-126) Units/L Albumin 2.2 L D (3.5-5.0) g/dL - VTE Documentation of Mechanical Device: Intermittent pneumatic compression device Consult Discharge Plan - Plan Referrals: Sheldon Gallagher DO [Primary Care Provider] - 10/24/16 11:00 am (Please follow up as schedule...)
--- NOTE | 2016-10-18 13:48 | Internal Med Progress Note ---
Date of Encounter: 10/18/16 Time of Encounter: 12:05 - Assessment and plan (1) Pneumonia Current Visit: Yes Status: Acute Assessment and plan: Given CXR findings and clinical picture, will continue IV abx for a total of 5 days f/u blood cultures pt encouraged to use incentive spirometry Qualifiers: Pneumonia type: due to unspecified organism Laterality: unspecified laterality Lung location: unspecified part of lung Qualified Code(s): J18.9 - Pneumonia, unspecified organism (2) Acute cholecystitis Current Visit: Yes Status: Acute Assessment and plan: Surgical consultation appreciated S/P laparoscopic cholecystectomy-POD #3 Pain control Phenergan 12.5mg IV q4h PRN n/v Continue Post op care as per surgery pt encouraged to get out of bed to chair and ambulate as tolerated PT eval noted: Home health recommended (3) Acute kidney failure Current Visit: Yes Status: Resolved Assessment and plan: Renal function back to baseline ROBERTO CARLOS resolved will continue to hold nephrotoxic agents and closely monitor renal function Qualifiers: Acute renal failure type: unspecified Qualified Code(s): N17.9 - Acute kidney failure, unspecified (4) HTN (hypertension) Current Visit: No Status: Chronic Assessment and plan: Noted to be hypotensive post-op continue IV fluids BP within acceptable limits continue home dose of Metoprolol and patient tolerating medication well closely monitor BP Qualifiers: Hypertension type: essential hypertension Qualified Code(s): I10 - Essential (primary) hypertension (5) DVT prophylaxis Current Visit: No Status: Acute Assessment and plan: SCD (6) Anemia Current Visit: Yes Status: Acute Assessment and plan: acute blood loss anemia post operatively s/p 2Unit PRBC repeat H&H within acceptable range will continue to monitor Qualifiers: Anemia type: unspecified type Qualified Code(s): D64.9 - Anemia, unspecified (7) Atrial fibrillation with rapid ventricular response Current Visit: No Status: Chronic Assessment and plan: Rate controlled with Metoprolol and amiodarone will continue to monitor (8) Urinary retention Current Visit: Yes Status: Acute Assessment and plan: urology consultation appreciated storey catheter inserted by Dr. Garnica pt to be discharged with storey catheter (9) Electrolyte abnormality Current Visit: Yes Status: Acute Assessment and plan: Hypophosphatemia Phos supplemented continue to monitor electrolytes and replace as needed - Subjective Interval history: Patient seen and examined with family present at bedside. S/P Laproscopic Cholecystectomy-POD #3 Pain better controlled Resting in chair Nausea resolved s/p 2unit PRBC transfusion Reports of coughing with mild respiratory discomfort. - Constitutional Vitals: Temp Pulse Resp BP Pulse Ox 98.5 F 94 16 94/56 96 10/18/16 11:44 10/18/16 11:44 10/18/16 11:44 10/18/16 11:44 10/18/16 11:44 General appearance: Present: A&O X 3, pleasant, no acute distress, answers questions appropriately - Head Head exam: Present: atraumatic, normocephalic - Eye Eye exam: Present: normal appearance, conjuntiva pink, sclera anicteric - Respiratory Respiratory exam: Present: decreased breath sounds. Absent: respiratory distress, wheezes - Cardiovascular Cardiovascular exam: Present: RRR, +S1, +S2 - GI/Abdominal GI/Abdominal exam: Present: normal bowel sounds, soft. Absent: tenderness (ANNA drain in place) - Extremities Exam Extremities exam: Present: warm, radial pulses palpable and symetrical. Absent : calf tenderness, pedal edema - Neurological Exam Neurological exam: Present: alert, oriented X3 - Psychiatric Psychiatric exam: Present: normal affect, normal mood Internal Medicine: Result - Labs CBC & Chem 7: 10/18/16 04:09 10/18/16 04:09 Labs: Short CBC 10/18/16 Range/Units 04:09 WBC 12.2 H (4.3-11.1) K/mcL Hgb 8.0 L (12.9-16.9) g/dL Hct 24.7 L (37.5-50.1) % Plt Count 257 (140-400) K/mcL Neutrophils # 9.3 H (1.6-8.9) K/mcL BMP 10/18/16 04:09 Sodium 134 L Potassium 3.6 Chloride 101 Carbon Dioxide 26 BUN 21 D Creatinine 1.16 Glucose 134 H Calcium 7.8 L Liver Function 10/18/16 Range/Units 04:09 Total Bilirubin 1.0 (0.2-1.2) mg/dL AST 26 (5-34) Units/L ALT 27 (0-55) Units/L Alkaline Phosphatase 148 H (38-126) Units/L Albumin 2.2 L D (3.5-5.0) g/dL - ABG Interpretation ABG results: PT/INR, D-dimer PT 11.1 Seconds (9.4-12.1) 10/13/16 14:46 - Impressions Impressions Chest X-Ray 10/18/16 08:49 IMPRESSION: Stable chest with bibasilar atelectasis or infiltrates. D/ / 10/18/2016 09:36:25 Denise Petersen MD / [facility] Interpreting Provider: Denise Petersen MD - VTE Documentation of Mechanical Device: Intermittent pneumatic compression device Consult Discharge Plan - Plan Referrals: Sheldon Gallagher DO [Primary Care Provider] - 10/24/16 11:00 am (Please follow up as schedule...)
[2016-10-18] MEDS: *HR* HYDROcodone/Acet 10/325 mg TABLET PO PRN (17:34)
[2016-10-18] MEDS: Gabapentin 300 MG CAPSULE PO SCH (20:15)
[2016-10-18] MEDS: Mirtazapine 15 MG TABLET PO SCH (20:15)
[2016-10-19] MEDS: Albuterol 2.5 MG/3 ML NEBULIZER IH SCH ×4 (04:08→22:24)
[2016-10-19 04:21] LABS: Basophils % 0.2 %; Eosinophils # 0.3 K/mcL (0.0-0.6); Eosinophils % 3.2 %; Hematocrit 24.4 % (37.5-50.1); Hemoglobin 7.7 g/dL (12.9-16.9); Immature Granulocytes % 0.7 % (0-4); Lymphocytes # 1.3 K/mcL (0.6-4.6); Lymphocytes % 13.5 %; Mean Corpuscular HGB Conc 31.6 g/dL (31.6-35.5); Mean Corpuscular Hemoglobin 27.4 pg (28.0-33.3); Mean Corpuscular Volume 86.8 fL (83.0-100.0); Mean Platelet Volume 9.5 fL (9.4-12.4); Monocytes # 1.1 K/mcL (0.0-1.3); Monocytes % 11.6 %; Neutrophils # 6.8 K/mcL (1.6-8.9); Platelet Count 305 K/mcL (140-400); Red Blood Count 2.81 M/mcL (4.19-5.50); Red Cell Distribution Width 16.2 % (11.5-14.5); Segmented Neutrophils % 70.8 %
[2016-10-19 04:40] LABS: BUN/Creatinine Ratio 13 (6-26); Blood Urea Nitrogen 12 mg/dL (8-26); Calcium 7.9 mg/dL (8.6-10.8); Carbon Dioxide 30 mEq/L (19-29); Chloride 99 mEq/L (98-109); Glucose 116 mg/dL (70-99); Magnesium 1.7 mg/dL (1.6-2.6); Osmolality,Calculated 279 (280-300); Phosphorous 2.2 mg/dL (2.3-4.7); Potassium 3.7 mEq/L (3.5-4.5); Sodium 134 mEq/L (136-145); eGFR For African Americans > 60 (> 60); eGFR For Non-African Americans > 60 (> 60)
[2016-10-19] MEDS: Multivit/Ca/Min/Fe/FA 1 TAB TABLET PO SCH (08:19)
[2016-10-19] MEDS: *HR* Amiodarone 200 MG TABLET PO SCH (08:20)
[2016-10-19] MEDS: Sennosides/Docusate Sodium TABLET PO SCH ×2 (08:20→20:46)
[2016-10-19] MEDS: Aspirin 81 MG TAB.CHEW PO SCH (08:20)
[2016-10-19] MEDS: Piperacillin/Tazobactam 3.375 GM in D5% in Water (Mini-Bag+) 100 ML IVPB SCH (08:22)
[2016-10-19] MEDS ORDERED: *HR* HYDROcodone/Acet 10/325 mg TABLET PO PRN (10:12)
[2016-10-19] MEDS ORDERED: Acetaminophen 325 MG TABLET PO PRN (10:12)
--- NOTE | 2016-10-19 10:54 | General Surgery Progress Note ---
Date of Encounter: 10/19/16 Time of Encounter: 10:39 Subjective Patient reports: no new complaints Narrative: General Surgery: POD#4 patient feeling well, denies abdominal pain, nausea or vomiting but appetite and oral intake is still diminished Excellent temperature 99.5; pulse 86-99 - rate medically controlled; respirations 16; blood pressure 112/67 Lungs: Clear with better inspiratory effort. Chest x-ray completed yesterday still showed some persistent atelectasis but this is expected to resolve with more effective pulmonary toilet and cough Abdomen: Soft, nontender; active bowel sounds. The patient indicates no post cholecystectomy diarrhea, in fact, no BM since surgery. Port sites clean and dry. ANNA: 85 mL for calendar day 10/18/16; 20 mL so far today - decreasing volume every day Hb scan - no evidence bile leak. Laboratories: Leukocytosis resolved, 9.7; hemoglobin 7.7, hematocrit 24.4; platelet count 305,000 Electrolytes, BUN, creatinine - sodium 134, otherwise within normal limits Path: Pending Impression: POD#4 - status post laparoscopic cholecystectomy for acute cholecystitis with hydrops, cholelithiasis Stable hyponatremia Atrial fibrillation - controlled Anemia - acute blood loss anemia related to surgery, currently H&H "drifting " but possibly due to continued IV fluids and IV medications Postoperative atelectasis - expected to resolve with continued pulmonary toilet and more effective cough Recommendations: Discontinue IVs and IV antibiotics - patient has been on ATB since 10/14/2016 Monitor H&H for 24 more hours Encourage activity out of bed Continue albuterol aerosol therapy and encourage incentive spirometry Await pathology Objective Vital Signs - Last 8 Hours Temp Pulse Resp BP Pulse Ox 10/19/16 10:33 18 94 10/19/16 07:30 99.5 F 87 18 112/67 92 10/19/16 04:18 98.8 F 87 18 114/63 90 10/19/16 04:10 18 93 Intake and Output 10/18/16 10/19/16 10/19/16 23:59 07:59 15:59 Intake Total 1100 / 1100 100 / 100 240 / 240 Output Total 1010 / 1010 1670 / 1670 600 / 600 Balance 90 / 90 -1570 / -1570 -360 / -360 Intake: IV Fluids 1100 / 1100 100 / 100 0.9 % Sodium Chloride 1, 1000 / 1000 000 ML @ 60 mls/hr IVC . [id number] [facility] Rx#: [id number] Zosyn 3.375 GM In 100 / 100 100 / 100 Dextrose 5% (Minibag+) 100 ML 100 ML @ 25 mls/hr IVPB Q8H [facility] Rx#: [id number] Oral 240 / 240 Output: Urine 1000 / 1000 Catheter 1650 / 1650 600 / 600 Wound Drainage Right Upper Quad Other: Meal Breakfast Percent of Meal Consumed 10% Weight 78.3 kg Patient Weight 10/19/16 23:59 Weight 78.3 kg - Labs 10/19/16 03:33 10/19/16 03:33 Diabetes panel 10/19/16 Range/Units 03:33 Sodium 134 L (136-145) mEq/L Potassium 3.7 (3.5-4.5) mEq/L Chloride 99 (98-109) mEq/L Carbon Dioxide 30 H (19-29) mEq/L BUN 12 (8-26) mg/dL Creatinine 0.91 (0.72-1.25) mg/dL Glucose 116 H (70-99) mg/dL Calcium 7.9 L (8.6-10.8) mg/dL Calcium panel 10/19/16 Range/Units 03:33 Calcium 7.9 L (8.6-10.8) mg/dL Phosphorus 2.2 L (2.3-4.7) mg/dL Pituitary panel 10/19/16 Range/Units 03:33 Sodium 134 L (136-145) mEq/L Potassium 3.7 (3.5-4.5) mEq/L Chloride 99 (98-109) mEq/L Carbon Dioxide 30 H (19-29) mEq/L BUN 12 (8-26) mg/dL Creatinine 0.91 (0.72-1.25) mg/dL Glucose 116 H (70-99) mg/dL Calcium 7.9 L (8.6-10.8) mg/dL Adrenal panel 10/19/16 Range/Units 03:33 Sodium 134 L (136-145) mEq/L Potassium 3.7 (3.5-4.5) mEq/L Chloride 99 (98-109) mEq/L Carbon Dioxide 30 H (19-29) mEq/L BUN 12 (8-26) mg/dL Creatinine 0.91 (0.72-1.25) mg/dL Glucose 116 H (70-99) mg/dL Calcium 7.9 L (8.6-10.8) mg/dL - VTE Documentation of Mechanical Device: Intermittent pneumatic compression device Consult Discharge Plan - Plan Referrals: Sheldon Gallagher DO [Primary Care Provider] - 10/24/16 11:00 am (Please follow up as schedule...)
[2016-10-19] MEDS: *HR* HYDROcodone/Acet 10/325 mg TABLET PO PRN ×2 (11:37→20:45)
--- NOTE | 2016-10-19 14:30 | Internal Med Progress Note ---
Date of Encounter: 10/19/16 Time of Encounter: 11:40 - Assessment and plan (1) Pneumonia Current Visit: Yes Status: Acute Assessment and plan: Pt has received 7days of abx, will d/c abx today pt encouraged to use incentive spirometry Qualifiers: Pneumonia type: due to unspecified organism Laterality: unspecified laterality Lung location: unspecified part of lung Qualified Code(s): J18.9 - Pneumonia, unspecified organism (2) Acute cholecystitis Current Visit: Yes Status: Acute Assessment and plan: Surgical consultation appreciated S/P laparoscopic cholecystectomy-POD #4 Pain control Phenergan 12.5mg IV q4h PRN n/v Continue Post op care as per surgery pt encouraged to get out of bed to chair and ambulate as tolerated PT eval noted: Home health recommended (3) Acute kidney failure Current Visit: Yes Status: Resolved Assessment and plan: Renal function back to baseline ROBERTO CARLOS resolved will continue to hold nephrotoxic agents and closely monitor renal function Qualifiers: Acute renal failure type: unspecified Qualified Code(s): N17.9 - Acute kidney failure, unspecified (4) HTN (hypertension) Current Visit: No Status: Chronic Assessment and plan: BP within acceptable limits continue home dose of Metoprolol and patient tolerating medication well closely monitor BP Qualifiers: Hypertension type: essential hypertension Qualified Code(s): I10 - Essential (primary) hypertension (5) DVT prophylaxis Current Visit: No Status: Acute Assessment and plan: SCD (6) Anemia Current Visit: Yes Status: Acute Assessment and plan: acute blood loss anemia post operatively s/p 2Unit PRBC (10/17/16) drop in H&H noted will closely monitor and transfuse as needed Qualifiers: Anemia type: unspecified type Qualified Code(s): D64.9 - Anemia, unspecified (7) Atrial fibrillation with rapid ventricular response Current Visit: No Status: Chronic Assessment and plan: Rate controlled with Metoprolol and amiodarone will continue to monitor (8) Urinary retention Current Visit: Yes Status: Acute Assessment and plan: urology consultation appreciated storey catheter inserted by Dr. Garnica pt to be discharged with storey catheter - Subjective Interval history: Patient seen and examined with family present at bedside. S/P Laproscopic Cholecystectomy-POD #4 Pain better controlled Resting in chair Nausea resolved s/p 2unit PRBC transfusion Reports of improvement in cough Drop in H&H noted No overnight issues reported - Constitutional Vitals: Temp Pulse Resp BP Pulse Ox 99.0 F 92 18 112/65 93 10/19/16 11:39 10/19/16 11:39 10/19/16 11:39 10/19/16 11:39 10/19/16 11:39 General appearance: Present: A&O X 3, pleasant, no acute distress, answers questions appropriately - Head Head exam: Present: atraumatic, normocephalic - Eye Eye exam: Present: normal appearance, conjuntiva pink, sclera anicteric - Respiratory Respiratory exam: Absent: respiratory distress, wheezes - Cardiovascular Cardiovascular exam: Present: RRR, +S1, +S2. Absent: diastolic murmur, gallop, rubs, systolic murmur - GI/Abdominal GI/Abdominal exam: Present: normal bowel sounds, soft, no peritoneal signs. Absent: distended, tenderness - Extremities Exam Extremities exam: Present: pedal edema, warm, radial pulses palpable and symetrical. Absent: calf tenderness - Neurological Exam Neurological exam: Present: alert, oriented X3 - Psychiatric Psychiatric exam: Present: normal affect, normal mood Internal Medicine: Result - Labs CBC & Chem 7: 10/19/16 03:33 10/19/16 03:33 Labs: Short CBC 10/19/16 Range/Units 03:33 WBC 9.7 (4.3-11.1) K/mcL Hgb 7.7 L (12.9-16.9) g/dL Hct 24.4 L (37.5-50.1) % Plt Count 305 (140-400) K/mcL Neutrophils # 6.8 (1.6-8.9) K/mcL BMP 10/19/16 03:33 Sodium 134 L Potassium 3.7 Chloride 99 Carbon Dioxide 30 H BUN 12 Creatinine 0.91 Glucose 116 H Calcium 7.9 L - ABG Interpretation ABG results: PT/INR, D-dimer PT 11.1 Seconds (9.4-12.1) 10/13/16 14:46 - Impressions Impressions Bile Acid Absorption NM 10/18/16 13:03 IMPRESSION: Status postcholecystectomy is again noted. Accumulation of activity in the gallbladder fossa region is suspicious for a contained leak. Correlation with CT would be helpful. No free intraperitoneal biliary leakage is appreciated. D/ / Daquan Chaves MD / Daquan Chaves MD Interpreting Provider: Daquan Chaves MD - VTE Documentation of Mechanical Device: Intermittent pneumatic compression device Consult Discharge Plan - Plan Referrals: Sheldon Gallagher DO [Primary Care Provider] - 10/24/16 11:00 am (Please follow up as schedule...)
[2016-10-19 20:22] LABS: Hematocrit 27.2 % (37.5-50.1); Hemoglobin 8.8 g/dL (12.9-16.9); Mean Corpuscular HGB Conc 32.4 g/dL (31.6-35.5); Mean Corpuscular Hemoglobin 27.8 pg (28.0-33.3); Mean Corpuscular Volume 86.1 fL (83.0-100.0); Mean Platelet Volume 9.3 fL (9.4-12.4); Platelet Count 348 K/mcL (140-400); Red Blood Count 3.16 M/mcL (4.19-5.50); Red Cell Distribution Width 16.3 % (11.5-14.5)
[2016-10-19] MEDS: Gabapentin 300 MG CAPSULE PO SCH (20:46)
[2016-10-19] MEDS: Mirtazapine 15 MG TABLET PO SCH (20:46)
[2016-10-20 03:21] LABS: Basophils % 0.1 %; Eosinophils # 0.2 K/mcL (0.0-0.6); Eosinophils % 2.2 %; Hematocrit 24.1 % (37.5-50.1); Hemoglobin 7.8 g/dL (12.9-16.9); Immature Granulocytes % 0.5 % (0-4); Lymphocytes # 1.2 K/mcL (0.6-4.6); Lymphocytes % 15.3 %; Mean Corpuscular HGB Conc 32.4 g/dL (31.6-35.5); Mean Corpuscular Hemoglobin 28.2 pg (28.0-33.3); Mean Platelet Volume 9.6 fL (9.4-12.4); Monocytes # 1.1 K/mcL (0.0-1.3); Monocytes % 14.2 %; Neutrophils # 5.3 K/mcL (1.6-8.9); Platelet Count 315 K/mcL (140-400); Red Blood Count 2.77 M/mcL (4.19-5.50); Red Cell Distribution Width 16.6 % (11.5-14.5); Segmented Neutrophils % 67.7 %
[2016-10-20] MEDS: Albuterol 2.5 MG/3 ML NEBULIZER IH SCH ×2 (04:40→10:34)
[2016-10-20] MEDS: *HR* HYDROcodone/Acet 10/325 mg TABLET PO PRN ×2 (06:31→16:13)
[2016-10-20] MEDS: Aspirin 81 MG TAB.CHEW PO SCH (08:10)
[2016-10-20] MEDS: Sennosides/Docusate Sodium TABLET PO SCH (08:10)
[2016-10-20] MEDS: Multivit/Ca/Min/Fe/FA 1 TAB TABLET PO SCH (08:11)
[2016-10-20] MEDS: *HR* Amiodarone 200 MG TABLET PO SCH (08:12)
[2016-10-20 10:06] LABS: Basophils % 0.1 %; Eosinophils # 0.2 K/mcL (0.0-0.6); Eosinophils % 2.7 %; Hematocrit 27.1 % (37.5-50.1); Hemoglobin 8.7 g/dL (12.9-16.9); Immature Granulocytes % 0.5 % (0-4); Lymphocytes # 0.9 K/mcL (0.6-4.6); Lymphocytes % 11.1 %; Mean Corpuscular HGB Conc 32.1 g/dL (31.6-35.5); Mean Corpuscular Hemoglobin 28.1 pg (28.0-33.3); Mean Corpuscular Volume 87.4 fL (83.0-100.0); Mean Platelet Volume 9.2 fL (9.4-12.4); Monocytes % 12.4 %; Platelet Count 394 K/mcL (140-400); Red Cell Distribution Width 16.6 % (11.5-14.5); Segmented Neutrophils % 73.2 %
--- NOTE | 2016-10-20 10:12 | General Surgery Progress Note ---
Date of Encounter: 10/20/16 Time of Encounter: 09:50 Subjective Patient reports: no new complaints Narrative: General Surgery: POD #5: Patient feeling well with no new complaints. Discussed patient's status with the patient, his , and Dr. Cronin Maximum temperature 99.1; patient has remained hemodynamically stable. Lungs: Clear to auscultation without obvious abdominal pain on deep inspiration Abdomen: Soft, no tenderness elicited. Port sites clean and dry; dressing around the ANNA was wet and bloody - dressing changed ANNA output continues to diminish - 45 mL for calendar day 10/19/16; a 5 mL so far today Guy: Clear iris urine, 2750 mL for calendar day 10/19/16 and 1500 mL so far today - effective mobilization of fluids after discontinuing IVs. Laboratories: Hemoglobin hematocrit repeated this morning 8.7 and 27.1, however , H&H of 7.7/24.4 was recorded at approx -0300 with repeat 03:30. Pathology: Confirms the clinical diagnosis: Acute and chronic cholecystitis, hydrops (noted intraoperatively); and cholelithiasis Impression: Acute and chronic cholecystitis with hydrops; cholelithiasis - status post laparoscopic cholecystectomy, postoperative day 5 Acute blood loss anemia - H&H appears to have stabilized Acute kidney injury resolved with BUN/creatinine returned to normal; EGFR >60 Atrial fibrillation - controlled Postoperative atelectasis Hypoproteinemia/hypoalbuminemia - expected to resolve with time of appetite and increased oral intake Plan: Transfuse 1 unit of packed cells today with subsequent discharge home Follow up my office, 10/24/16 - please call office to make appointment Patient have repeat H&H prior to presenting to my office on 10/24/16 Regular diet Activity as tolerated; lifting limited to less than 20 pounds Patient may shower, wash incisions with soap and water ANNA to be left in situ; to empty drain once or twice daily and record output patient has hydrocodone at home for chronic back pain - no additional narcotic analgesics required Objective Vital Signs - Last 8 Hours Temp Pulse Resp BP Pulse Ox 10/20/16 08:00 94 10/20/16 07:26 99.1 F 87 20 114/67 94 10/20/16 04:55 98.1 F 82 18 112/58 95 10/20/16 04:40 16 95 Intake and Output 05/09/0210/20/16 10/20/16 23:59 07:59 15:59 Intake Total 0 / 0 360 / 360 Output Total 525 / 525 2335 / 2335 Balance -525 / -525 -2335 / -2335 360 / 360 Intake: Oral 0 / 0 360 / 360 Output: Urine 800 / 800 Catheter 500 / 500 1500 / 1500 Wound Drainage 35 / 35 Right Upper Quad 35 / 35 Other: Meal Breakfast Percent of Meal Consumed 50% Weight 78.29 kg Patient Weight 10/20/16 23:59 Weight 78.29 kg - Labs 10/20/16 09:43 10/19/16 03:33 - VTE Documentation of Mechanical Device: Intermittent pneumatic compression device Consult Discharge Plan - Plan Referrals: Sheldon Gallagher DO [Primary Care Provider] - 10/24/16 11:00 am (Please follow up as schedule...)
--- NOTE | 2016-10-20 10:37 | Discharge Summary ---
Date of Encounter: 10/20/16 Time of Encounter: 10:31 - Discharge Diagnosis (1) Pneumonia Priority: Secondary Status: Resolved Qualifiers: Pneumonia type: due to unspecified organism Laterality: unspecified laterality Lung location: unspecified part of lung Qualified Code(s): J18.9 - Pneumonia, unspecified organism (2) Acute cholecystitis Priority: Primary Status: Acute (3) Acute kidney failure Priority: Secondary Status: Resolved Qualifiers: Acute renal failure type: unspecified Qualified Code(s): N17.9 - Acute kidney failure, unspecified (4) HTN (hypertension) Priority: Secondary Status: Chronic Qualifiers: Hypertension type: essential hypertension Qualified Code(s): I10 - Essential (primary) hypertension (5) DVT prophylaxis Priority: Secondary Status: Acute (6) Anemia Priority: Secondary Status: Acute Qualifiers: Anemia type: unspecified type Qualified Code(s): D64.9 - Anemia, unspecified (7) Atrial fibrillation with rapid ventricular response Priority: Secondary Status: Chronic (8) Urinary retention Priority: Secondary Status: Chronic - Discharge Medications Home Medications: Duloxetine HCl [Cymbalta] 60 mg PO QAM 09/21/15 [History] Lisinopril [Zestril] 10 mg PO QAM 09/21/15 [History] Aspirin 81 mg PO DAILY #60 tab.chew 04/05/16 [Rx] Meloxicam [Mobic] 15 mg PO DAILY 05/26/16 [History] Metoprolol [Lopressor] 12.5 mg PO BID 05/26/16 [History] Multivitamin/Iron/Folic Acid [Centrum Complete Multivit Tab] 1 each PO DAILY 02/01 [History] Mirtazapine [Remeron] 15 mg PO HS 08/03/16 [History] Amiodarone [Cordarone] 200 mg PO DAILY 10/13/16 [History] Atorvastatin Calcium [Lipitor] 80 mg PO HS 10/13/16 [History] Docusate Sodium [Stool Softener] 100 mg PO DAILY PRN 10/13/16 [History] Gabapentin [Neurontin] 600 mg PO TID 10/13/16 [History] HYDROcodone/Acet 10/325 mg [[place] 10-325 mg] 1 tab PO QID 10/13/16 [History] Nitroglycerin [Nitrostat] 0.4 mg SL Q5M PRN 10/13/16 [History] Allergies/Adverse Reactions: Allergies No Known Allergies Allergy (Verified 10/13/16 14:20) Procedures/tests Complete & Pending: Procedures Performed prior 72 hours Category Date Time Status NM hepatobiliary [NM] Routine Exams 10/18/16 13:03 Completed Date of admission: 10/13/16 16:44 Primary care physician: Sheldon Gallagher Consults: 10/13/16 18:44 Consult to Nutrition [CONS] Routine Comment: Consulting Provider: NUTRITION Reason for Dietary Consult: MST Score 10/16/16 09:48 Consult to Urology [CONS] Routine Consulting Provider: Urology Cody Reason for Consult: urinary retention Call Completed: Yes 10/17/16 09:39 Consult to Occupational Therapy [CONS] Routine Comment: Evaluate, develop and implement POC Consult to Physical Therapy [CONS] Routine Comment: Evaluate, develop and implement POC Discharging clinician: Priscila Cronin Anticipated date of discharge: 10/20/16 - Patient Status Disposition: Home Health Service Condition: Good Functional capacity at discharge: uses cane/walker Overall status at discharge: patient is back to baseline - Discharge Instructions Follow Up With: Sheldon Gallagher DO [Primary Care Provider] - 10/24/16 11:00 am (Please follow up as schedule...) Additional Instructions: Please follow up with your primary care physician within one week after your discharge from the hospital. Please follow up with Dr. Mireles on Monday October 24, 2016. Please obtain your blood work prior to your appointment with Dr. Mireles. Please follow up with Urology (Dr. Lee) within one week after your discharge from the hospital. Please closely monitor your blood pressure at home. Hold Lisinopril if your SBP< 120. Leave the storey catheter in place until your follow up with Dr. Lee. Leave the ANNA drain in place until your follow up with Dr. Mireles. Resume all other home medications as prescribed by your primary care physician. - Diet and Activity Activity: as per physical therapy Diet: low salt diet Hospital course: Mr. John Michele is a 76 year old male with PMH of HTN, CAD, afib, HLD who was admitted for management of acute cholecystitis. He was followed by surgery and underwent laproscopic cholecystectomy. Patient's hospital course was complicated by acute blood loss anemia post-op, worsening urinary retention, and concern for PNA. He received PRBC transfusion, storey catheter was placed by urology given history of urethral strictures (will be discharged with storey), and was treated with IV abx for 5days. Patient was evaluated by physical therapy and home health was recommended. At this time he is hemodynamically stable however H&H remains below 8. Will transfuse one unit PRBC and discharge to home after transfusion. Plan was discussed with surgery and Dr. Mireles agree the plan. Pt is to follow up with Dr. Mireles on Monday and will further monitor the H&H. Pt will be discharged to home with home health. Patient and demonstrates understanding of the diagnosis and agree with the discharge care and plan. - Time Spent with Patient Total time spent providing and/or coordinating discharge services: Greater than 30 minutes - Constitutional Vitals: Temp Pulse Resp BP Pulse Ox 99.1 F 87 20 114/67 94 10/20/16 07:26 10/20/16 07:26 10/20/16 07:26 10/20/16 07:26 10/20/16 08:00 General appearance: Present: A&O X 3, pleasant, no acute distress, answers questions appropriately - Head Head exam: Present: atraumatic, normocephalic - Eye Eye exam: Present: normal appearance, conjuntiva pink, sclera anicteric - Respiratory Respiratory exam: Present: CTAB. Absent: accessory muscle use, rales, rhonchi, wheezes - Cardiovascular Cardiovascular exam: Present: RRR, +S1, +S2. Absent: diastolic murmur, gallop, rubs, systolic murmur - GI/Abdominal GI/Abdominal exam: Present: normal bowel sounds, soft, no peritoneal signs. Absent: distended, tenderness Additional comments: ANNA drain in place - Extremities Exam Extremities exam: Present: warm, radial pulses palpable and symetrical. Absent : calf tenderness, cyanotic, pedal edema - Neurological Exam Neurological exam: Present: alert, oriented X3 - Psychiatric Psychiatric exam: Present: normal affect, normal mood - VTE Documentation of Mechanical Device: Intermittent pneumatic compression device
--- NOTE | 2016-10-20 10:43 | Physician Discharge Referral ---
Home Health/Hosp Referral Info Transfer to: Home Health Provider in Charge Post Discharge: PCP - Diagnosis (1) Pneumonia Priority: Secondary Status: Resolved (2) Acute cholecystitis Priority: Primary Status: Acute (3) Acute kidney failure Priority: Secondary Status: Resolved (4) HTN (hypertension) Priority: Secondary Status: Chronic (5) DVT prophylaxis Priority: Secondary Status: Acute (6) Anemia Priority: Secondary Status: Acute (7) Atrial fibrillation with rapid ventricular response Priority: Secondary Status: Chronic (8) Urinary retention Priority: Secondary Status: Chronic - Respiratory Orders Smoking Cessation: Smoking cessation has been advised. For more information, call the [place] Tobacco Quit Line at 7-456-IVNC-NOW. - Services Needed Following services are medically necessary services: Nursing, Home Health Aide, Physical Therapy, Occupational Therapy - Transfer Medications Home Medications: Duloxetine HCl [Cymbalta] 60 mg PO QAM 09/21/15 [History] Lisinopril [Zestril] 10 mg PO QAM 09/21/15 [History] Aspirin 81 mg PO DAILY #60 tab.chew 04/05/16 [Rx] Meloxicam [Mobic] 15 mg PO DAILY 05/26/16 [History] Metoprolol [Lopressor] 12.5 mg PO BID 05/26/16 [History] Multivitamin/Iron/Folic Acid [Centrum Complete Multivit Tab] 1 each PO DAILY 02/01 [History] Mirtazapine [Remeron] 15 mg PO HS 08/03/16 [History] Amiodarone [Cordarone] 200 mg PO DAILY 10/13/16 [History] Atorvastatin Calcium [Lipitor] 80 mg PO HS 10/13/16 [History] Docusate Sodium [Stool Softener] 100 mg PO DAILY PRN 10/13/16 [History] Gabapentin [Neurontin] 600 mg PO TID 10/13/16 [History] HYDROcodone/Acet 10/325 mg [[place] 10-325 mg] 1 tab PO QID 10/13/16 [History] Nitroglycerin [Nitrostat] 0.4 mg SL Q5M PRN 10/13/16 [History] Allergies/Adverse Reactions: Allergies No Known Allergies Allergy (Verified 10/13/16 14:20) Certification: Further, I certify that my clinical findings support that this patient is homebound (i.e. absences from home require considerable and taxing effort and are for medical reasons or congregational services or infrequently or short duration when for other reasons) because: Homebound Reason: Patient requires assistance of a person or device to safely leave home Attestation: My signature below is to certify that this patient is under my care and that I, or nurse practitioner, or a physician's store assistant working with me, has a face-to -face encounter with this patient.
[2016-10-20] MEDS ORDERED: 0.9 % Sodium Chloride 500 ML ONE (12:09)
[2016-10-20 15:19] VITALS: BP 136/69
== END 2016-10-20 16:33 | disposition home health service (06) | DRG 417 ==
LOC: 2ANU 14:07 → EMEROO 14:07 → 2ANU 18:05
PROVIDERS: ADMIT Registered Nurse; ATTEND Internal Medicine

== ENCOUNTER 2017-01-21 17:21 | Inpatient (IN) ==
--- NOTE | 2017-01-21 17:35 | Emergency Department Note ---
Disposition Clinical Impression: Community acquired pneumonia, Chest pain Disposition: Admitted As Inpatient Condition: Good General Adult HPI - General Chief complaint: ED Shortness of Breath/Dyspnea Stated complaint: TANNER Time Seen by Provider: 01/21/17 17:31 Source: patient Limitations: no limitations - History of Present Illness Pain Scale: 6 - Related Data Home Medications Medication Instructions Recorded Confirmed Duloxetine HCl [Cymbalta] 60 mg PO QAM 09/21/15 10/13/16 Lisinopril [Zestril] 10 mg PO QAM 09/21/15 10/13/16 Meloxicam [Mobic] 15 mg PO DAILY 05/26/16 10/13/16 Metoprolol [Lopressor] 12.5 mg PO BID 05/26/16 10/13/16 Multivitamin/Iron/Folic Acid 1 each PO DAILY 05/26/16 10/13/16 [Centrum Complete Multivit Tab] Mirtazapine [Remeron] 15 mg PO HS 08/03/16 10/13/16 Amiodarone [Cordarone] 200 mg PO DAILY 10/13/16 10/13/16 Atorvastatin Calcium [Lipitor] 80 mg PO HS 10/13/16 10/13/16 Docusate Sodium [Stool Softener] 100 mg PO DAILY PRN 10/13/16 10/13/16 Gabapentin [Neurontin] 600 mg PO TID 10/13/16 10/13/16 HYDROcodone/Acet 10/325 mg [[place] 1 tab PO QID 10/13/16 10/13/16 10-325 mg] Nitroglycerin [Nitrostat] 0.4 mg SL Q5M PRN 10/13/16 10/13/16 Previous Rx's Medication Instructions Recorded Aspirin 81 mg PO DAILY #60 tab.chew 04/05/16 Allergies Allergy/AdvReac Type Severity Reaction Status Date / Time No Known Allergies Allergy Verified 10/13/16 14:20 Past Medical History - Past Medical History Medical history: Reports: arthritis, asthma, atrial fibrillation, coronary artery disease, hyperlipidemia, hypertension, myocardial infarction, other Surgical history: Reports: coronary bypass (CABG), orthopedic, other, prostatectomy Psychiatric history: Reports: anxiety, depression - Social History Smoking Status: Former smoker Smokeless Tobacco Status: No Alcohol use: Reports: none Drug use: Reports: none Physical Exam - General Limitations: no limitations General appearance: alert Course Vital Signs Temperature 98.2 F 01/21/17 17:24 Pulse Rate 111 01/21/17 17:24 Respiratory Rate 24 01/21/17 17:24 Blood Pressure 133/75 01/21/17 17:24 O2 Sat by Pulse Oximetry 93 01/21/17 17:24 Temperature 98.2 F 01/21/17 17:24 Pulse Rate 111 01/21/17 17:24 Respiratory Rate 16 01/21/17 18:47 Blood Pressure 111/56 01/21/17 18:47 O2 Sat by Pulse Oximetry 93 01/21/17 17:43 Oxygen Delivery Oxygen Delivery Nasal Cannula Medical Decision Making - Lab Data Result diagrams: 01/21/17 17:48 01/21/17 17:48 Lab Results 01/21/17 01/21/17 01/21/17 Range/Units 17:48 17:48 17:48 WBC 10.2 (4.3-11.1) K/mcL RBC 4.04 L (4.19-5.50) M/mcL Hgb 11.4 L (12.9-16.9) g/dL Hct 35.7 L (37.5-50.1) % MCV 88.4 (83.0-100.0) fL MCH 28.2 (28.0-33.3) pg MCHC 31.9 (31.6-35.5) g/dL RDW 15.8 H (11.5-14.5) % Plt Count 236 (140-400) K/mcL MPV 9.8 (9.4-12.4) fL Immature Gran % 0.3 (0-4) % Seg Neutrophils % 64.2 % Lymphocytes % 15.4 % Monocytes % 17.6 % Eosinophils % 2.3 % Basophils % 0.2 % Neutrophils # 6.6 (1.6-8.9) K/mcL Lymphocytes # 1.6 (0.6-4.6) K/mcL Monocytes # 1.8 H (0.0-1.3) K/mcL Eosinophils # 0.2 (0.0-0.6) K/mcL Basophils # 0.0 (0.0-0.2) K/mcL PT (9.4-12.1) Seconds INR D-Dimer (0-500) ng/mLFEU Sodium 134 L (136-145) mEq/L Potassium 4.0 (3.5-4.5) mEq/L Chloride 100 (98-109) mEq/L Carbon Dioxide 28 (19-29) mEq/L BUN 13 (8-26) mg/dL Creatinine 0.83 (0.72-1.25) mg/dL Est GFR ( Amer) > 60 (> 60) Est GFR (Non-Af Amer) > 60 (> 60) BUN/Creatinine Ratio 16 (6-26) Glucose 201 H (70-99) mg/dL Calculated Osmolality 284 (280-300) Lactic Acid (0.5-2.2) mmol/L Calcium 8.8 (8.6-10.8) mg/dL Total Bilirubin 0.9 (0.2-1.2) mg/dL AST 19 (5-34) Units/L ALT 13 (0-55) Units/L Alkaline Phosphatase 167 H (38-126) Units/L Troponin I (0-0.03) ng/mL B-Natriuretic Peptide 51 (0-100) pg/mL Serum Total Protein 6.8 (6.0-8.3) g/dL Albumin 3.1 L (3.5-5.0) g/dL Globulin 3.7 H (2.4-3.5) g/dL Albumin/Globulin Ratio 0.8 L (1.1-2.2) 01/21/17 01/21/17 01/21/17 Range/Units 17:48 17:48 18:28 WBC (4.3-11.1) K/mcL RBC (4.19-5.50) M/mcL Hgb (12.9-16.9) g/dL Hct (37.5-50.1) % MCV (83.0-100.0) fL MCH (28.0-33.3) pg MCHC (31.6-35.5) g/dL RDW (11.5-14.5) % Plt Count (140-400) K/mcL MPV (9.4-12.4) fL Immature Gran % (0-4) % Seg Neutrophils % % Lymphocytes % % Monocytes % % Eosinophils % % Basophils % % Neutrophils # (1.6-8.9) K/mcL Lymphocytes # (0.6-4.6) K/mcL Monocytes # (0.0-1.3) K/mcL Eosinophils # (0.0-0.6) K/mcL Basophils # (0.0-0.2) K/mcL PT 12.5 H (9.4-12.1) Seconds INR 1.2 D-Dimer 808 H (0-500) ng/mLFEU Sodium (136-145) mEq/L Potassium (3.5-4.5) mEq/L Chloride (98-109) mEq/L Carbon Dioxide (19-29) mEq/L BUN (8-26) mg/dL Creatinine (0.72-1.25) mg/dL Est GFR ( Amer) (> 60) Est GFR (Non-Af Amer) (> 60) BUN/Creatinine Ratio (6-26) Glucose (70-99) mg/dL Calculated Osmolality (280-300) Lactic Acid 1.3 (0.5-2.2) mmol/L Calcium (8.6-10.8) mg/dL Total Bilirubin (0.2-1.2) mg/dL AST (5-34) Units/L ALT (0-55) Units/L Alkaline Phosphatase (38-126) Units/L Troponin I 0.00 (0-0.03) ng/mL B-Natriuretic Peptide (0-100) pg/mL Serum Total Protein (6.0-8.3) g/dL Albumin (3.5-5.0) g/dL Globulin (2.4-3.5) g/dL Albumin/Globulin Ratio (1.1-2.2) Attestation Statement - Attestation Attestation: I examined this patient and my medical decision-making was reviewed with the Resident Physician. I agree with the documented findings, disposition and treatment plan as described except to the extent set forth below. [id number] time provided Patient complains of dyspnea and chest congestion. He is oxygen dependent at 2 L at baseline. He is bronchospastic on exam and appears visibly dyspneic. I evaluated this patient in conjunction with the resident physician Dr. Ma
[2017-01-21] MEDS ORDERED: Ipratropium/Albuterol Neb 3 ML IH ONE (17:36)
[2017-01-21 17:58] LABS: Basophils % 0.2 %; Eosinophils # 0.2 K/mcL (0.0-0.6); Eosinophils % 2.3 %; Hematocrit 35.7 % (37.5-50.1); Hemoglobin 11.4 g/dL (12.9-16.9); Immature Granulocytes % 0.3 % (0-4); Lymphocytes # 1.6 K/mcL (0.6-4.6); Lymphocytes % 15.4 %; Mean Corpuscular HGB Conc 31.9 g/dL (31.6-35.5); Mean Corpuscular Hemoglobin 28.2 pg (28.0-33.3); Mean Corpuscular Volume 88.4 fL (83.0-100.0); Mean Platelet Volume 9.8 fL (9.4-12.4); Monocytes # 1.8 K/mcL (0.0-1.3); Monocytes % 17.6 %; Neutrophils # 6.6 K/mcL (1.6-8.9); Platelet Count 236 K/mcL (140-400); Red Blood Count 4.04 M/mcL (4.19-5.50); Red Cell Distribution Width 15.8 % (11.5-14.5); Segmented Neutrophils % 64.2 %
[2017-01-21 18:03] LABS: INR 1.2; Prothrombin Time 12.5 Seconds (9.4-12.1)
--- NOTE | 2017-01-21 18:10 | Emergency Department Note ---
Disposition Clinical Impression: Community acquired pneumonia Qualifiers: Laterality: right Lung location: lower lobe of lung Qualified Code(s): J18.1 - Lobar pneumonia, unspecified organism Chest pain Qualifiers: Chest pain type: unspecified Qualified Code(s): R07.9 - Chest pain, unspecified Disposition: Admitted As Inpatient Condition: Good Referrals: Sheldon Gallagher DO [Primary Care Provider] - Forms: ED Satisfaction Letter Time of Disposition: 18:48 General Adult HPI - General Chief complaint: ED Shortness of Breath/Dyspnea Stated complaint: TANNER Time Seen by Provider: 01/21/17 17:31 Source: patient Limitations: no limitations Nursing Notes Reviewed: Yes Vital Signs Reviewed: Yes - History of Present Illness HPI Narrative: Patient having midsternal chest pain that began last night. Does have associated dyspnea. Also has dyspnea on exertion. Cough of a brown colored sputum. 2 days. Pain is always present but does fluctuate in intensity. No radiation. Feels like his last [place]. It feels like a burning and achy. Pain Scale: 6 - Related Data Home Medications Medication Instructions Recorded Confirmed Duloxetine HCl [Cymbalta] 60 mg PO QAM 09/21/15 10/13/16 Lisinopril [Zestril] 10 mg PO QAM 09/21/15 10/13/16 Meloxicam [Mobic] 15 mg PO DAILY 05/26/16 10/13/16 Metoprolol [Lopressor] 12.5 mg PO BID 05/26/16 10/13/16 Multivitamin/Iron/Folic Acid 1 each PO DAILY 05/26/16 10/13/16 [Centrum Complete Multivit Tab] Mirtazapine [Remeron] 15 mg PO HS 08/03/16 10/13/16 Amiodarone [Cordarone] 200 mg PO DAILY 10/13/16 10/13/16 Atorvastatin Calcium [Lipitor] 80 mg PO HS 10/13/16 10/13/16 Docusate Sodium [Stool Softener] 100 mg PO DAILY PRN 10/13/16 10/13/16 Gabapentin [Neurontin] 600 mg PO TID 10/13/16 10/13/16 HYDROcodone/Acet 10/325 mg [[place] 1 tab PO QID 10/13/16 10/13/16 10-325 mg] Nitroglycerin [Nitrostat] 0.4 mg SL Q5M PRN 10/13/16 10/13/16 Previous Rx's Medication Instructions Recorded Aspirin 81 mg PO DAILY #60 tab.chew 04/05/16 Allergies Allergy/AdvReac Type Severity Reaction Status Date / Time No Known Allergies Allergy Verified 10/13/16 14:20 All systems ED: reviewed and negative except as stated. Constitutional: Denies: fever, chills ENT ED: Denies: congestion Cardiovascular: Reports: chest pain, dyspnea on exertion. Denies: palpitations , syncope Respiratory: Reports: cough, dyspnea Gastrointestinal: Denies: abdominal pain, nausea, vomiting, diarrhea, hematemesis, melena, hematochezia Genitourinary: Denies: urgency, dysuria, frequency, hematuria Musculoskeletal: Denies: back pain, neck pain Integumentary: Denies: rash Neurological: Denies: headache Past Medical History - Past Medical History Medical history: Reports: arthritis, asthma, atrial fibrillation, coronary artery disease, hyperlipidemia, hypertension, myocardial infarction, other Surgical history: Reports: coronary bypass (CABG), orthopedic, other, prostatectomy Psychiatric history: Reports: anxiety, depression - Social History Smoking Status: Former smoker Smokeless Tobacco Status: No Alcohol use: Reports: none Drug use: Reports: none Physical Exam - General Limitations: no limitations General appearance: alert, in no apparent distress - Head Head exam: atraumatic, normocephalic, normal inspection - Eye Eye exam: Present: normal appearance, PERRL. Absent: EOMI - ENT ENT exam: normal exam, normal oropharynx, mucous membranes moist - Neck Neck exam: Present: normal inspection, full ROM. Absent: trachea midline, tenderness - Chest Chest inspection: Present: normal inspection, symmetric chest wall rise. Absent : tenderness - Respiratory Respiratory exam: Present: other (Rhonchi lower lobes.). Absent: respiratory distress - Cardiovascular Cardiovascular exam: Present: regular rate, normal rhythm, normal heart sounds - Abdominal Exam Abdominal exam: Present: soft, Non-Tender. Absent: tenderness, distention, guarding, rebound, rigidity, organomegaly - Extremities Exam Extremities exam: Present: normal inspection, full ROM, normal capillary refill. Absent: tenderness, pedal edema - Back Exam Back exam: Present: normal inspection, full ROM. Absent: tenderness - Neurological Exam Neurological exam: Present: alert, oriented X3 - Psychiatric Psychiatric exam: Present: normal affect, normal mood - Skin Skin exam: Present: warm, dry, intact, normal color Course Course Narrative: Well-appearing male patient resting comfortably in bed. He ambulated to the bed without difficulty but is on home O2. Patient stating that he is having chest pain in the center of his chest. He describes it as a burning and an ache. He also reports pain to the left side of his chest and points to around his fourth rib. He states the pain started last night after he ambulated around his bed. He started getting short of breath and having chest pain. He reports the last time he had pain like this was in March when he had his heart attack. He states he has not been feeling well for the past several days and has had a productive cough with brown sputum for the past 2. Several pleural effusions previously and has had this drained several times on the left. He denies any nausea or vomiting at this time. He denies any diaphoresis. On exam his heart sounds are normal his right lung sound is clear however he does have some rhonchi on the left lower lobe. His abdomen is soft and nontender there is no organomegaly. I do not appreciate any edema to his extremities. We will do a cardiac workup on the patient and order a DuoNeb. Patient is agreeable to this. We will also order him a dose of aspirin. He takes a baby aspirin daily. - Reevaluation(s) Reevaluation #1: Patient has a right lower lobe pneumonia. We are treating this with azithromycin and Rocephin. We will admit patient to the hospital. His troponin is negative. There no signs of acute ischemia on his EKG at this time. He is agreeable to admission. Time: 18:38 - Consultations Consultation #1: Dr. Dawkins accepted patient in stable condition. He requested I ordered a d- dimer on the patient and then he will follow this. I have ordered it. Time: 18:37 Vital Signs Temperature 98.2 F 01/21/17 17:24 Pulse Rate 111 01/21/17 17:24 Respiratory Rate 24 01/21/17 17:24 Blood Pressure 133/75 01/21/17 17:24 O2 Sat by Pulse Oximetry 93 01/21/17 17:24 Temperature 98.2 F 01/21/17 17:24 Pulse Rate 111 01/21/17 17:24 Respiratory Rate 16 01/21/17 17:43 Blood Pressure 133/75 01/21/17 17:43 O2 Sat by Pulse Oximetry 93 01/21/17 17:43 Oxygen Delivery Oxygen Delivery Nasal Cannula Medical Decision Making - Medical Records Medical records reviewed: Yes I reviewed the patient's medical records. - Lab Data Lab results reviewed: Yes I reviewed the patient's lab results. Result diagrams: 01/21/17 17:48 Lab Results 01/21/17 01/21/17 Range/Units 17:48 17:48 WBC 10.2 (4.3-11.1) K/mcL RBC 4.04 L (4.19-5.50) M/mcL Hgb 11.4 L (12.9-16.9) g/dL Hct 35.7 L (37.5-50.1) % MCV 88.4 (83.0-100.0) fL MCH 28.2 (28.0-33.3) pg MCHC 31.9 (31.6-35.5) g/dL RDW 15.8 H (11.5-14.5) % Plt Count 236 (140-400) K/mcL MPV 9.8 (9.4-12.4) fL Immature Gran % 0.3 (0-4) % Seg Neutrophils % 64.2 % Lymphocytes % 15.4 % Monocytes % 17.6 % Eosinophils % 2.3 % Basophils % 0.2 % Neutrophils # 6.6 (1.6-8.9) K/mcL Lymphocytes # 1.6 (0.6-4.6) K/mcL Monocytes # 1.8 H (0.0-1.3) K/mcL Eosinophils # 0.2 (0.0-0.6) K/mcL Basophils # 0.0 (0.0-0.2) K/mcL PT 12.5 H (9.4-12.1) Seconds INR 1.2 - Radiology Data Radiology results reviewed: Yes I reviewed the patient's radiology results. Chest X-Ray 01/21/17 17:35 IMPRESSION: 1. Bibasilar atelectasis versus infiltrates. D/ / Harris Chow MD / Harris Chow MD Interpreting Provider: Harris Chow MD - EKG Data EKG #1 EKG attestation: Yes I reviewed and interpreted this EKG. EKG results narrative: Sinus tachycardia at a rate of 109. MN interval is 137. QRS duration is 89. QT is 303. QTC is 367. No signs of acute ischemia. No significant change from previous EKG dated 10/17/2016. He was tachycardic at that time as well.
[2017-01-21 18:11] LABS: Alanine Aminotransferase 13 Units/L (0-55); Albumin 3.1 g/dL (3.5-5.0); Albumin/Globulin Ratio 0.8 (1.1-2.2); Alkaline Phosphatase 167 Units/L (38-126); Aspartate Amino Transferase 19 Units/L (5-34); BUN/Creatinine Ratio 16 (6-26); Bilirubin,Total 0.9 mg/dL (0.2-1.2); Blood Urea Nitrogen 13 mg/dL (8-26); Calcium 8.8 mg/dL (8.6-10.8); Carbon Dioxide 28 mEq/L (19-29); Chloride 100 mEq/L (98-109); Globulin 3.7 g/dL (2.4-3.5); Glucose 201 mg/dL (70-99); Osmolality,Calculated 284 (280-300); Sodium 134 mEq/L (136-145); Total Protein 6.8 g/dL (6.0-8.3); eGFR For African Americans > 60 (> 60); eGFR For Non-African Americans > 60 (> 60)
[2017-01-21] MEDS ORDERED: Aspirin 81 MG TAB.CHEW PO STA (18:12)
[2017-01-21] MEDS ORDERED: Azithromycin 500 MG in D5% in Water 250 ML IVPB ONE (18:20)
[2017-01-21] MEDS ORDERED: Acetaminophen 325 MG TABLET PO PRN (20:06)
[2017-01-21] MEDS ORDERED: Naloxone 0.4 MG/ML INJ IVP PRN (20:06)
[2017-01-21] MEDS ORDERED: Ondansetron 4 MG/2 ML VIAL IVP PRN (20:06)
[2017-01-21] MEDS ORDERED: Furosemide 20 MG TABLET PO PRN (20:09)
--- NOTE | 2017-01-21 20:12 | Internal Med History&Physical ---
Date of Encounter: 01/21/17 Time of Encounter: 20:10 Assessment and Plan (1) Acute and chronic respiratory failure Current visit: Yes Status: Acute Acute on chronic hypoxic respiratory failure secondary to community-acquired pneumonia, unknown infectious agent in combination with mild vascular congestion possible mild acute diastolic CHF exacerbation Continue Rocephin and azithromycin, start oral Lasix 20 mg daily Blood cultures and sputum cultures No need of steroids at the moment DuoNeb nebs and oxygen therapy as needed Omeprazole for GI prophylaxis and subcutaneous heparin for DVT prophylaxis. The patient will be admitted as inpatient, expected to stay more than 2 midnights. Full code. Time spent on this admission 40 minutes. High risk due to respiratory failure Qualifiers: Respiratory failure complication: hypoxia Qualified Code(s): J96.21 - Acute and chronic respiratory failure with hypoxia (2) A-fib Current visit: Yes Status: Acute Continue aspirin Confair the use of amiodarone in the morning Qualifiers: Atrial fibrillation type: paroxysmal Qualified Code(s): I48.0 - Paroxysmal atrial fibrillation (3) Hypertension Current visit: Yes Status: Acute Stable Qualifiers: Hypertension type: essential hypertension Qualified Code(s): I10 - Essential (primary) hypertension (4) CAD (coronary artery disease) Current visit: Yes Status: Acute Aspirin, metoprolol Qualifiers: Coronary Disease-Associated Artery/Lesion type: [place] artery [place] vs. transplanted heart: [place] heart Associated angina: without angina Qualified Code(s): I25.10 - Atherosclerotic heart disease of [place] coronary artery without angina pectoris (5) CHF (congestive heart failure) Current visit: No Status: Chronic Qualifiers: Congestive heart failure type: diastolic Congestive heart failure chronicity: acute on chronic Qualified Code(s): I50.33 - Acute on chronic diastolic (congestive) heart failure (6) Community acquired pneumonia Current visit: Yes Status: Acute Qualifiers: Laterality: right Lung location: lower lobe of lung Qualified Code(s): J18.1 - Lobar pneumonia, unspecified organism Internal Medicine - H&P: HPI Chief complaint: Shortness of breath Admitted From: Emergency Dept History of present illness: Mr. Lopez is a 76 year old male with a past medical history of left pleural effusion, CAD status post CABG, hypertension. Was discharged from the hospital little more than 3 months ago on 10/20/2016 when he was treated for pneumonia. Can complain of some chest pain on the right side, has been bringing up brown sputum for the past 2 days, non-quantified fevers, denies any sick contacts. Chest x-ray shows bilateral infiltrates in both bases. Was started on azithromycin and Rocephin at the emergency room. Appears to be very congested, patient says that he uses oxygen at home but he does not know whether he has COPD. Chest x-ray also shows some diffuse mild congestion and both lower extremities have 1+ pitting edema. Denies any other complaints, no recent traveling. Desaturated down to 88 % without oxygen Past Med Surg Social Fam HX - Past Medical History Medical history: arthritis, asthma, atrial fibrillation (Only on aspirin, paroxysmal), coronary artery disease (Status post CABG), hyperlipidemia, hypertension, myocardial infarction, other (Left pleural effusion, asthma, most arthritis, depression, respiratory failure chronic currently on oxygen 2 L, never diagnosed with COPD, possible diastolic dysfunction/CHF last ejection fraction in March 2016 was 55%) Psychiatric history: anxiety, depression - Past Surgical History Surgical History: cholecystectomy, coronary bypass (CABG), orthopedic, other, prostatectomy, other (Thoracenteses) - Social History Smoking Status: Former smoker Smokeless Tobacco Status: No Alcohol use: none Drug use: none - Family History Mother Living Status: Hx Family Cardiac Disorders: Yes Father Living Status: Hx Family Cardiac Disorders: Yes (self, brother,sister, mother) Hx Family Respiratory Disorders: Yes Hx Family Cancer: Yes (Postrate) Hx Family GI Disorders: Yes (father) Hx Family Endocrine Disorder: Yes (brother,) Hx Family Neuromuscular Disorders: No Hx Family Neurologic Disorders: No Hx Family HEENT Disorders: No Hx Family Autoimmune Disorders: Yes (RA) Brother Living Status: Hx Family Cardiac Disorders: Yes - Additional Family History Additional family history: Mother with myocardial infarction, father with CAD and rheumatoid arthritis Internal Medicine - H&P: Meds Duloxetine HCl [Cymbalta] 60 mg PO QAM 09/21/15 [History] Lisinopril [Zestril] 10 mg PO QAM 09/21/15 [History] Aspirin 81 mg PO DAILY #60 tab.chew 04/05/16 [Rx] Meloxicam [Mobic] 15 mg PO DAILY 05/26/16 [History] Metoprolol [Lopressor] 12.5 mg PO BID 05/26/16 [History] Multivitamin/Iron/Folic Acid [Centrum Complete Multivit Tab] 1 each PO DAILY 02/01 [History] Mirtazapine [Remeron] 15 mg PO HS 08/03/16 [History] Amiodarone [Cordarone] 200 mg PO DAILY 10/13/16 [History] Atorvastatin Calcium [Lipitor] 80 mg PO HS 10/13/16 [History] Docusate Sodium [Stool Softener] 100 mg PO DAILY PRN 10/13/16 [History] Gabapentin [Neurontin] 600 mg PO TID 10/13/16 [History] HYDROcodone/Acet 10/325 mg [[place] 10-325 mg] 1 tab PO QID 10/13/16 [History] Nitroglycerin [Nitrostat] 0.4 mg SL Q5M PRN 10/13/16 [History] Allergies No Known Allergies Allergy (Verified 10/13/16 14:20) All Systems PM: A 10-system review of systems was performed and is negative for pertinent findings except as documented above in the HPI. Review of systems: Complains of pleuritic right-sided chest pain worsened coughing, other systems out of the 10 reviewed were negative - Constitutional Vitals: Temp Pulse Resp BP Pulse Ox 98.6 F 97 14 123/70 93 01/21/17 19:37 01/21/17 19:37 01/21/17 19:37 01/21/17 19:37 01/21/17 19:37 General appearance: Present: A&O X 3 - Head Head exam: Present: atraumatic, normocephalic - Eye Eye exam: Present: PERRL, conjuntiva pink, sclera anicteric Pupils: Present: PERRL - Neck Neck exam general surgery: Present: supple, trachea midline. Absent: lymphadenopathy - Respiratory Respiratory exam: Present: decreased breath sounds (Right blunted breath sounds with fine diffuse crackles), CTAB. Absent: accessory muscle use, rales, rhonchi , wheezes - Cardiovascular Cardiovascular exam: Present: RRR, +S1, +S2. Absent: diastolic murmur, gallop, rubs, systolic murmur - GI/Abdominal GI/Abdominal exam: Present: normal bowel sounds, soft, no peritoneal signs. Absent: distended, tenderness - Extremities Exam Extremities exam: Present: pedal edema (+1 pitting edema in both lower extremities), warm, radial pulses palpable and symetrical. Absent: calf tenderness, cyanotic - Neurological Exam Neurological exam: Present: CN II-XII intact, oriented X3, no focal deficits. Absent: pronater drift, facial droop, speech deficit - Skin Skin exam: Present: dry, intact Internal Med - H&P Results - Labs CBC & Chem 7: 01/21/17 17:48 01/21/17 17:48
[2017-01-21] MEDS ORDERED: Azithromycin 250 MG TABLET PO SCH (20:15)
[2017-01-21] MEDS: Gabapentin 300 MG CAPSULE PO SCH (21:48)
[2017-01-21] MEDS: *HR* HYDROcodone/Acet 10/325 mg TABLET PO PRN (23:39)
[2017-01-21] MEDS: *HR* Heparin 5,000 UNIT/ML VIAL SQ SCH (23:40)
[2017-01-22] MEDS: *HR* Morphine 2 MG/ML SYRINGE IVP PRN ×2 (01:35→04:44)
[2017-01-22 03:29] LABS: Hematocrit 37.3 % (37.5-50.1); Hemoglobin 11.9 g/dL (12.9-16.9); Mean Corpuscular HGB Conc 31.9 g/dL (31.6-35.5); Mean Corpuscular Hemoglobin 28.4 pg (28.0-33.3); Mean Platelet Volume 10.5 fL (9.4-12.4); Platelet Count 246 K/mcL (140-400); Red Blood Count 4.19 M/mcL (4.19-5.50); Red Cell Distribution Width 15.9 % (11.5-14.5)
[2017-01-22 03:40] LABS: BUN/Creatinine Ratio 15 (6-26); Blood Urea Nitrogen 12 mg/dL (8-26); Calcium 8.9 mg/dL (8.6-10.8); Carbon Dioxide 29 mEq/L (19-29); Chloride 98 mEq/L (98-109); Glucose 178 mg/dL (70-99); Osmolality,Calculated 282 (280-300); Potassium 4.1 mEq/L (3.5-4.5); Sodium 134 mEq/L (136-145); eGFR For African Americans > 60 (> 60); eGFR For Non-African Americans > 60 (> 60)
[2017-01-22] MEDS ORDERED: *HR* Metoprolol 5 MG/5 ML VIAL IVP ONE (04:06)
[2017-01-22] MEDS: Nitroglycerin 0.4 MG TAB.SUBL SL PRN ×2 (04:33→04:38)
[2017-01-22] MEDS ORDERED: Levofloxacin 750 MG/150 ML 750 MG/150 ML BAG IVPB SCH (05:00)
[2017-01-22] MEDS ORDERED: *HR* HYDROmorphone (PF) 1 MG/ML SYRINGE IVP PRN (05:01)
[2017-01-22] MEDS ORDERED: *HR* Dextrose 50 % in Water (Syg) 50 ML SYRINGE IVP PRN (05:13)
[2017-01-22] MEDS ORDERED: Dextrose Gel 15 GM PO PRN ×2 (05:13)
[2017-01-22] MEDS ORDERED: D5% in Water 1,000 ML IVC PRN (05:13)
[2017-01-22] MEDS: Ketorolac 30 MG/ML VIAL IVP PRN ×2 (05:22→21:03)
[2017-01-22] MEDS: Cefepime HCl 1,000 MG in D5% in Water (Mini-Bag+) 100 ML IVPB SCH ×3 (05:24→18:06)
[2017-01-22] MEDS: *HR* Amiodarone 200 MG TABLET PO SCH (08:31)
[2017-01-22] MEDS: Gabapentin 300 MG CAPSULE PO SCH ×3 (08:31→21:04)
[2017-01-22] MEDS: *HR* Heparin 5,000 UNIT/ML VIAL SQ SCH ×2 (08:32→16:37)
[2017-01-22] MEDS: Aspirin 81 MG TAB.CHEW PO SCH (08:32)
[2017-01-22] MEDS: Insulin LISPRO 300 UNITS/3 ML VIAL SQ SCH ×4 (08:33→21:05)
[2017-01-22] MEDS: *HR* HYDROcodone/Acet 10/325 mg TABLET PO PRN ×2 (12:54→18:06)
--- NOTE | 2017-01-22 15:00 | Internal Med Progress Note ---
Date of Encounter: 01/22/17 Time of Encounter: 10:50 - Assessment and plan (1) Acute and chronic respiratory failure Current Visit: Yes Status: Acute Assessment and plan: Acute on chronic Hypoxic Respiratory failure - secondary to sepsis due to possible gram negative pneumonia, possible HCAP Continue IV cefepime, IV Levaquin, DuoNeb breathing treatment Tylenol as needed, IV Toradol as needed for pain Blood cultures, urine cultures - pending Chest x-ray - bibasilar atelectasis versus infiltrates WBC - 4.7 Lactic acid - 1.2 Troponin - negative 3 BN peptide - 51 Monitor closely, Cardiac telemetry, labs in a.m. Qualifiers: Respiratory failure complication: hypoxia Qualified Code(s): J96.21 - Acute and chronic respiratory failure with hypoxia (2) A-fib Current Visit: Yes Status: Chronic Assessment and plan: Chronicity unclear - rate controlled at this time Not on any anticoagulation, continue Amiodarone, Aspirin and Metoprolol Qualifiers: Atrial fibrillation type: paroxysmal Qualified Code(s): I48.0 - Paroxysmal atrial fibrillation (3) Coronary artery disease Current Visit: No Status: Chronic Assessment and plan: Coronary artery disease status post CABG - stable Continue aspirin and atorvastatin Qualifiers: Coronary Disease-Associated Artery/Lesion type: [place] artery [place] vs. transplanted heart: [place] heart Associated angina: without angina Qualified Code(s): I25.10 - Atherosclerotic heart disease of [place] coronary artery without angina pectoris (4) CHF (congestive heart failure) Current Visit: No Status: Chronic Assessment and plan: CHF diastolic dysfunction LVEF 55% - not in exacerbation Continue metoprolol, Lasix BN peptide - 51 Daily weight, I's and O's, O2 via nasal cannula, cardiac telemetry Qualifiers: Congestive heart failure type: diastolic Congestive heart failure chronicity: chronic Qualified Code(s): I50.32 - Chronic diastolic (congestive ) heart failure (5) HTN (hypertension) Current Visit: No Status: Chronic Assessment and plan: Essential hypertension, controlled, monitor, continue home meds Qualifiers: Hypertension type: essential hypertension Qualified Code(s): I10 - Essential (primary) hypertension (6) DVT prophylaxis Current Visit: No Status: Acute Assessment and plan: Continue heparin subcutaneous - Time Spent With Patient 25 - 35 minutes - Subjective Interval history: Examined this morning. Patient is awake and alert. Not in any distress. Denies chest pain. States his shortness of breath is now improved. Continues to have nonproductive cough. Patient states he feels better. Fever early this morning. Hemodynamically stable. No other acute events or complaints. - Constitutional Vitals: Temp Pulse Resp BP Pulse Ox 97.5 F L 73 18 98/61 97 01/22/17 09:55 01/22/17 09:55 01/22/17 09:55 01/22/17 09:55 01/22/17 09:55 General appearance: Present: A&O X 3, pleasant, no acute distress, answers questions appropriately Exam: Ill appearing - Head Head exam: Present: atraumatic - Eye Eye exam: Present: EOMI - ENT ENT exam: Present: mucous membranes dry - Neck Neck exam general surgery: Present: supple - Respiratory Respiratory exam: Present: decreased breath sounds (Slightly decreased in both bases), wheezes (Mild bilateral). Absent: accessory muscle use, rales, rhonchi , stridor, tachypnea - Cardiovascular Cardiovascular exam: Present: RRR, +S1, +S2 - GI/Abdominal GI/Abdominal exam: Present: soft. Absent: distended, firm, guarding, rigid, tenderness - Extremities Exam Extremities exam: Present: radial pulses palpable and symetrical. Absent: cyanotic, pedal edema - Neurological Exam Neurological exam: Present: alert, oriented X3, no focal deficits. Absent: facial droop, speech deficit Internal Medicine: Result - Labs CBC & Chem 7: 01/22/17 02:32 01/22/17 02:32 Labs: Short CBC 01/22/17 Range/Units 02:32 WBC 12.7 H (4.3-11.1) K/mcL Hgb 11.9 L (12.9-16.9) g/dL Hct 37.3 L (37.5-50.1) % Plt Count 246 (140-400) K/mcL BMP 01/22/17 02:32 Sodium 134 L Potassium 4.1 Chloride 98 Carbon Dioxide 29 BUN 12 Creatinine 0.79 Glucose 178 H Calcium 8.9 Cardiac Enzymes 01/22/17 01/22/17 Range/Units 02:32 10:28 Troponin I 0.01 0.00 (0-0.03) ng/mL - ABG Interpretation ABG results: PT/INR, D-dimer PT 12.5 Seconds (9.4-12.1) H 01/21/17 17:48 D-Dimer 808 ng/mLFEU (0-500) H 01/21/17 17:48 Consult Discharge Plan - Plan Referrals: Sheldon Gallagher DO [Primary Care Provider] -
[2017-01-22] MEDS: Ipratropium/Albuterol Neb 3 ML IH SCH ×3 (15:29→23:24)
[2017-01-23] MEDS: *HR* Heparin 5,000 UNIT/ML VIAL SQ SCH ×3 (00:13→16:20)
[2017-01-23 01:53] LABS: Hematocrit 33.9 % (37.5-50.1); Hemoglobin 10.5 g/dL (12.9-16.9); Mean Corpuscular Hemoglobin 27.9 pg (28.0-33.3); Mean Corpuscular Volume 89.9 fL (83.0-100.0); Mean Platelet Volume 10.4 fL (9.4-12.4); Platelet Count 233 K/mcL (140-400); Red Blood Count 3.77 M/mcL (4.19-5.50); Red Cell Distribution Width 15.9 % (11.5-14.5)
[2017-01-23 02:00] LABS: BUN/Creatinine Ratio 17 (6-26); Blood Urea Nitrogen 18 mg/dL (8-26); Calcium 8.7 mg/dL (8.6-10.8); Carbon Dioxide 26 mEq/L (19-29); Chloride 96 mEq/L (98-109); Glucose 180 mg/dL (70-99); Osmolality,Calculated 274 (280-300); Sodium 129 mEq/L (136-145); eGFR For African Americans > 60 (> 60); eGFR For Non-African Americans > 60 (> 60)
[2017-01-23 02:01] LABS: Potassium 4.8 mEq/L (3.5-4.5)
[2017-01-23] MEDS: *HR* HYDROcodone/Acet 10/325 mg TABLET PO PRN ×2 (02:55→22:44)
[2017-01-23 03:16] LABS: Lymphocytes # 2.4 K/mcL (0.6-4.6); Monocytes # 2.6 K/mcL (0.0-1.3); Neutrophils # 6.9 K/mcL (1.6-8.9); Platelet Estimate Normal (Normal)
[2017-01-23] MEDS: Ipratropium/Albuterol Neb 3 ML IH SCH ×6 (03:19→23:20)
[2017-01-23] MEDS: Cefepime HCl 1,000 MG in D5% in Water (Mini-Bag+) 100 ML IVPB SCH ×2 (05:52→17:18)
[2017-01-23] MEDS: Levofloxacin 750 MG/150 ML 750 MG/150 ML BAG IVPB SCH (05:52)
[2017-01-23] MEDS: Insulin LISPRO 300 UNITS/3 ML VIAL SQ SCH ×4 (07:49→20:21)
[2017-01-23] MEDS: *HR* Amiodarone 200 MG TABLET PO SCH (07:50)
[2017-01-23] MEDS: Aspirin 81 MG TAB.CHEW PO SCH (07:50)
[2017-01-23] MEDS: Gabapentin 300 MG CAPSULE PO SCH ×3 (07:52→20:21)
[2017-01-23] MEDS: Multivit/Ca/Min/Fe/FA 1 TAB TABLET PO SCH (07:59)
[2017-01-23] MEDS: Ketorolac 30 MG/ML VIAL IVP PRN ×2 (11:56→17:18)
--- NOTE | 2017-01-23 15:16 | Electrocardiograph Report ---
[address] [address] Test Date: 2017-01-21 Pat Name: Yaron Lopez Department: 104 Room: 3A42 Gender: M [employer]: : 1940 Requested By: Rocco Salcedo Order Number: [id number] Reading MD: Nena Philip Measurements Intervals [place] Rate: 109 P: 51 NE: 137 QRS: 14 QRSD: 89 T: -1 QT: 303 QTc: 367 Interpretive Statements SINUS TACHYCARDIA NONSPECIFIC ST & T-WAVE ABNORMALITY ABNORMAL RHYTHM ECG Electronically Signed On 01-22-2017 22:21:08 EDT by Nena Philip
--- NOTE | 2017-01-23 15:17 | Electrocardiograph Report ---
[place] [address] Test Date: 2017-01-22 Pat Name: Yaron Lopez Department: 115 Room: 3A42 Gender: Piecer: [id number] : 1940 Requested By: Charli Lynch Order Number: [id number] Reading MD: Nena Philip Measurements Intervals [place] Rate: 109 P: 62 PA: 144 QRS: 30 QRSD: 94 T: 35 QT: 312 QTc: 376 Interpretive Statements SINUS TACHYCARDIA LEFT ATRIAL ENLARGEMENT NONSPECIFIC T-WAVE ABNORMALITY Electronically Signed On 01-22-2017 22:28:48 EDT by Nena Philip
--- NOTE | 2017-01-23 18:08 | Internal Med Progress Note ---
Date of Encounter: 01/23/17 Time of Encounter: 10:10 - Assessment and plan (1) Acute and chronic respiratory failure Current Visit: Yes Status: Acute Assessment and plan: Acute on chronic Hypoxic Respiratory failure - secondary to sepsis due to possible gram negative pneumonia, possible HCAP - symptoms improving Continue IV cefepime, IV Levaquin, DuoNeb breathing treatment Tylenol as needed, IV Toradol as needed for pain Blood cultures, urine cultures - negative Chest x-ray - bibasilar atelectasis versus infiltrates WBC - 11.9 Lactic acid - 1.2 Troponin - negative 3 BN peptide - 51 Monitor closely, Cardiac telemetry, labs in a.m. Qualifiers: Respiratory failure complication: hypoxia Qualified Code(s): J96.21 - Acute and chronic respiratory failure with hypoxia (2) A-fib Current Visit: Yes Status: Chronic Assessment and plan: Chronicity unclear - rate controlled at this time Not on any anticoagulation, continue Amiodarone, Aspirin and Metoprolol Qualifiers: Atrial fibrillation type: paroxysmal Qualified Code(s): I48.0 - Paroxysmal atrial fibrillation (3) Coronary artery disease Current Visit: No Status: Chronic Assessment and plan: Coronary artery disease status post CABG - stable Continue aspirin and atorvastatin Qualifiers: Coronary Disease-Associated Artery/Lesion type: [place] artery [place] vs. transplanted heart: [place] heart Associated angina: without angina Qualified Code(s): I25.10 - Atherosclerotic heart disease of [place] coronary artery without angina pectoris (4) CHF (congestive heart failure) Current Visit: No Status: Chronic Assessment and plan: CHF diastolic dysfunction LVEF 55% - not in exacerbation Continue metoprolol, PO Lasix BN peptide - 51 Daily weight, I's and O's, O2 via nasal cannula, cardiac telemetry Qualifiers: Congestive heart failure type: diastolic Congestive heart failure chronicity: chronic Qualified Code(s): I50.32 - Chronic diastolic (congestive ) heart failure (5) HTN (hypertension) Current Visit: No Status: Chronic Assessment and plan: Essential hypertension, controlled, monitor, continue home meds Qualifiers: Hypertension type: essential hypertension Qualified Code(s): I10 - Essential (primary) hypertension (6) DVT prophylaxis Current Visit: No Status: Acute Assessment and plan: Continue heparin subcutaneous - Time Spent With Patient 25 - 35 minutes - Subjective Interval history: Examined this morning. Patient is awake and alert. Not in any distress. Denies chest pain. Tolerating oral diet. Ambulating in the room. States his shortness of breath is improving. Continues to have cough which is now productive, with brown colored sputum. Patient states he feels better. Fever early this morning. Hemodynamically stable. No other acute events or complaints. - Constitutional Vitals: Temp Pulse Resp BP Pulse Ox 98.3 F 90 16 97/56 93 01/23/17 15:42 01/23/17 15:42 01/23/17 16:32 01/23/17 15:42 01/23/17 16:32 General appearance: Present: A&O X 3, pleasant, no acute distress, answers questions appropriately - Head Head exam: Present: atraumatic - Eye Eye exam: Present: EOMI - ENT ENT exam: Present: mucous membranes moist - Neck Neck exam general surgery: Present: supple - Respiratory Respiratory exam: Present: decreased breath sounds (Slightly decreased in both bases), rhonchi (Mild bilateral). Absent: rales, wheezes, tachypnea - Cardiovascular Cardiovascular exam: Present: RRR, +S1, +S2 - GI/Abdominal GI/Abdominal exam: Present: soft. Absent: distended, firm, guarding, rigid, tenderness - Extremities Exam Extremities exam: Present: radial pulses palpable and symetrical. Absent: cyanotic, pedal edema - Neurological Exam Neurological exam: Present: alert, oriented X3, no focal deficits. Absent: facial droop, speech deficit Internal Medicine: Result - Labs CBC & Chem 7: 01/23/17 01:08 01/23/17 01:08 Labs: Short CBC 01/23/17 Range/Units 01:08 WBC 11.9 H (4.3-11.1) K/mcL Hgb 10.5 L (12.9-16.9) g/dL Hct 33.9 L (37.5-50.1) % Plt Count 233 (140-400) K/mcL Neutrophils # 6.9 (1.6-8.9) K/mcL BMP 01/23/17 01:08 Sodium 129 L Potassium 4.8 H Chloride 96 L Carbon Dioxide 26 BUN 18 Creatinine 1.09 Glucose 180 H Calcium 8.7 - ABG Interpretation ABG results: PT/INR, D-dimer PT 12.5 Seconds (9.4-12.1) H 01/21/17 17:48 D-Dimer 808 ng/mLFEU (0-500) H 01/21/17 17:48 Consult Discharge Plan - Plan Referrals: Sheldon Gallagher DO [Primary Care Provider] -
[2017-01-23] MEDS ORDERED: Mirtazapine 15 MG TABLET PO SCH (21:00)
[2017-01-24] MEDS: *HR* Heparin 5,000 UNIT/ML VIAL SQ SCH ×2 (00:05→07:43)
[2017-01-24] MEDS: Ketorolac 30 MG/ML VIAL IVP PRN (02:25)
[2017-01-24] MEDS: Ipratropium/Albuterol Neb 3 ML IH SCH ×3 (03:49→10:58)
[2017-01-24 05:38] LABS: Basophils % 0.2 %; Eosinophils # 0.2 K/mcL (0.0-0.6); Eosinophils % 1.7 %; Hematocrit 31.6 % (37.5-50.1); Hemoglobin 10.1 g/dL (12.9-16.9); Immature Granulocytes % 0.4 % (0-4); Lymphocytes # 1.1 K/mcL (0.6-4.6); Lymphocytes % 10.9 %; Mean Corpuscular Hemoglobin 28.3 pg (28.0-33.3); Mean Corpuscular Volume 88.5 fL (83.0-100.0); Mean Platelet Volume 10.1 fL (9.4-12.4); Monocytes # 1.4 K/mcL (0.0-1.3); Monocytes % 13.4 %; Neutrophils # 7.5 K/mcL (1.6-8.9); Platelet Count 227 K/mcL (140-400); Red Blood Count 3.57 M/mcL (4.19-5.50); Red Cell Distribution Width 15.9 % (11.5-14.5); Segmented Neutrophils % 73.4 %
[2017-01-24] MEDS: Cefepime HCl 1,000 MG in D5% in Water (Mini-Bag+) 100 ML IVPB SCH (05:53)
[2017-01-24 05:54] LABS: BUN/Creatinine Ratio 20 (6-26); Blood Urea Nitrogen 18 mg/dL (8-26); Carbon Dioxide 29 mEq/L (19-29); Chloride 97 mEq/L (98-109); Glucose 224 mg/dL (70-99); Osmolality,Calculated 281 (280-300); Potassium 4.4 mEq/L (3.5-4.5); Sodium 131 mEq/L (136-145); eGFR For African Americans > 60 (> 60); eGFR For Non-African Americans > 60 (> 60)
[2017-01-24] MEDS: Levofloxacin 750 MG/150 ML 750 MG/150 ML BAG IVPB SCH (05:54)
[2017-01-24] MEDS: Aspirin 81 MG TAB.CHEW PO SCH (07:43)
[2017-01-24] MEDS: *HR* Amiodarone 200 MG TABLET PO SCH (07:43)
[2017-01-24] MEDS: Gabapentin 300 MG CAPSULE PO SCH (07:44)
[2017-01-24] MEDS: Multivit/Ca/Min/Fe/FA 1 TAB TABLET PO SCH (07:44)
[2017-01-24] MEDS: Insulin LISPRO 300 UNITS/3 ML VIAL SQ SCH ×2 (07:46→12:03)
--- NOTE | 2017-01-24 11:34 | Discharge Summary ---
Date of Encounter: 01/24/17 Time of Encounter: 10:20 - Discharge Diagnosis (1) Acute and chronic respiratory failure Priority: Primary Status: Acute Qualifiers: Respiratory failure complication: hypoxia Qualified Code(s): J96.21 - Acute and chronic respiratory failure with hypoxia (2) A-fib Priority: Secondary Status: Chronic Qualifiers: Atrial fibrillation type: paroxysmal Qualified Code(s): I48.0 - Paroxysmal atrial fibrillation (3) CAD (coronary artery disease) Priority: Secondary Status: Acute Qualifiers: Coronary Disease-Associated Artery/Lesion type: [place] artery [place] vs. transplanted heart: [place] heart Associated angina: without angina Qualified Code(s): I25.10 - Atherosclerotic heart disease of [place] coronary artery without angina pectoris (4) CHF (congestive heart failure) Priority: Secondary Status: Chronic Qualifiers: Congestive heart failure type: diastolic Congestive heart failure chronicity: chronic Qualified Code(s): I50.32 - Chronic diastolic (congestive ) heart failure (5) HTN (hypertension) Priority: Secondary Status: Chronic Qualifiers: Hypertension type: essential hypertension Qualified Code(s): I10 - Essential (primary) hypertension (6) Diabetes mellitus Priority: Secondary Status: Acute Qualifiers: Diabetes mellitus type: type 2 Diabetes mellitus complication status: with hyperglycemia Diabetes mellitus terminal carman insulin use: without detention use Qualified Code(s): E11.65 - Type 2 diabetes mellitus with hyperglycemia (7) Pneumonia Priority: Secondary Status: Acute Qualifiers: Pneumonia type: due to unspecified organism Laterality: unspecified laterality Lung location: unspecified part of lung Qualified Code(s): J18.9 - Pneumonia, unspecified organism - Discharge Medications Prescriptions: Cefdinir [Omnicef] 300 mg PO BID #14 capsule Doxycycline 100 mg PO BID #14 capsule GlipiZIDE [Glipizide Xl] 5 mg PO DAILY #30 tab.er.24 Nystatin [Nystatin Suspension] 100,000 units PO QID #120 ml Home Medications: Duloxetine HCl [Cymbalta] 60 mg PO QAM 09/21/15 [History] Aspirin 81 mg PO DAILY #60 tab.chew 04/05/16 [Rx] Multivitamin/Iron/Folic Acid [Centrum Complete Multivit Tab] 1 tab PO DAILY 02/01 [History] Mirtazapine [Remeron] 15 mg PO HS 08/03/16 [History] Atorvastatin Calcium [Lipitor] 80 mg PO HS 10/13/16 [History] HYDROcodone/Acet 10/325 mg [[place] 10-325 mg] 1 tab PO QID 10/13/16 [History] Gabapentin [Neurontin] 600 mg PO TID 01/22/17 [History] Cefdinir [Omnicef] 300 mg PO BID #14 capsule 01/24/17 [Rx] Doxycycline 100 mg PO BID #14 capsule 01/24/17 [Rx] GlipiZIDE [Glipizide Xl] 5 mg PO DAILY #30 tab.er.24 01/24/17 [Rx] Nystatin [Nystatin Suspension] 100,000 units PO QID #120 ml 01/24/17 [Rx] Allergies/Adverse Reactions: Allergies No Known Allergies Allergy (Verified 10/13/16 14:20) Procedures/tests Complete & Pending: Procedures Performed prior 72 hours Category Date Time Status ECG 12 lead ECG [ECG] Routine Y 01/22/17 04:09 Completed Date of admission: 01/21/17 20:07 Primary care physician: Sheldon Gallagher Consults: 01/23/17 10:03 Consult to [employer] [CONS] Routine Reason for SW Consult: evaluate for home situation Discharging clinician: Jose David Bobby Anticipated date of discharge: 01/24/17 - Patient Status Disposition: Home Health Service Condition: Good Functional capacity at discharge: uses cane/walker Overall status at discharge: patient is progressing back to baseline - Discharge Instructions Instructions: Atrial Fibrillation (DC), Acute Respiratory Distress Syndrome (DC ), Diabetes Mellitus Type 2 in Adults (DC) Follow Up With: Sheldon Gallagher DO [Primary Care Provider] - 02/09/17 2:00 pm (in 1-2 weeks) - Diet and Activity Activity: wear oxygen at all times Diet: diabetic diet, low fat, low cholesterol, low salt diet Hospital course: Mr. Lopez is a 76 year old male patient with history of atrial fibrillation, hypertension, coronary artery disease, congestive heart failure was admitted here with acute on chronic respiratory failure related to pneumonia. He was treated with IV antibiotics and bronchodilators along with O2 supplementation. His blood cultures have been negative but the patient has clinically improved with this treatment plan. He is doing much better now and is back on 3 L O2 supplementation which he uses at home. He will be discharged today on oral antibiotics to complete treatment course. His sputum culture was positive for yeast species but given that the patient does not have any signs of immune compromise and does take oral steroid inhalers for COPD, he would not require treatment for this. He may use topical nystatin as needed after use of steroid inhalers. The patient has also had elevated blood sugars during his stay although he did not receive any steroids. His hemoglobin A1c level was 6.4%. His A1c level has been steadily rising since April of last year. As such I think it would be reasonable to start treating him for diabetes. He did receive diabetes education and instructions here. I will place him on low-dose of glipizide daily. He can follow up with his primary care provider for further management. - Time Spent with Patient Total time spent providing and/or coordinating discharge services: Greater than 30 minutes (35 min) - Constitutional Vitals: Temp Pulse Resp BP Pulse Ox 97.8 F 90 16 103/61 96 01/24/17 09:36 01/24/17 09:36 01/24/17 11:02 01/24/17 09:36 01/24/17 11:02 General appearance: Present: A&O X 3, pleasant, no acute distress, answers questions appropriately - Neck Neck exam general surgery: Present: supple, trachea midline. Absent: lymphadenopathy - Respiratory Respiratory exam: Present: CTAB. Absent: accessory muscle use, rales, rhonchi, wheezes - Cardiovascular Cardiovascular exam: Present: RRR, +S1, +S2. Absent: diastolic murmur, gallop, rubs, systolic murmur - GI/Abdominal GI/Abdominal exam: Present: normal bowel sounds, soft, no peritoneal signs. Absent: distended, tenderness - Neurological Exam Neurological exam: Present: alert, oriented X3, no focal deficits, strengths equal and symetr throughout. Absent: facial droop, speech deficit - Skin Skin exam: Present: dry, intact
[2017-01-24 12:04] VITALS: BP 108/69
--- NOTE | 2017-01-24 12:04 | Physician Discharge Referral ---
Home Health/Hosp Referral Info Transfer to: Home Health Provider in Charge Post Discharge: PCP - Diagnosis (1) Acute and chronic respiratory failure Priority: Primary Status: Acute (2) A-fib Priority: Secondary Status: Chronic (3) CAD (coronary artery disease) Priority: Secondary Status: Acute (4) CHF (congestive heart failure) Priority: Secondary Status: Chronic (5) HTN (hypertension) Priority: Secondary Status: Chronic (6) Diabetes mellitus Priority: Secondary Status: Acute (7) Pneumonia Priority: Secondary Status: Acute - Respiratory Orders Oxygen / L per min (3) Smoking Cessation: Smoking cessation has been advised. For more information, call the [place] Tobacco Quit Line at 6-237-ZJSA-NOW. - Diet/Nutrition Diet/Nutrition Orders: Cardiac - Activity Activity Orders: Walker - Services Needed Following services are medically necessary services: Nursing, Physical Therapy, Occupational Therapy - Transfer Medications Prescriptions: Cefdinir [Omnicef] 300 mg PO BID #14 capsule Doxycycline 100 mg PO BID #14 capsule GlipiZIDE [Glipizide Xl] 5 mg PO DAILY #30 tab.er.24 Home Medications: Duloxetine HCl [Cymbalta] 60 mg PO QAM 09/21/15 [History] Aspirin 81 mg PO DAILY #60 tab.chew 04/05/16 [Rx] Multivitamin/Iron/Folic Acid [Centrum Complete Multivit Tab] 1 tab PO DAILY 02/01 [History] Mirtazapine [Remeron] 15 mg PO HS 08/03/16 [History] Atorvastatin Calcium [Lipitor] 80 mg PO HS 10/13/16 [History] HYDROcodone/Acet 10/325 mg [[place] 10-325 mg] 1 tab PO QID 10/13/16 [History] Gabapentin [Neurontin] 600 mg PO TID 01/22/17 [History] Cefdinir [Omnicef] 300 mg PO BID #14 capsule 01/24/17 [Rx] Doxycycline 100 mg PO BID #14 capsule 01/24/17 [Rx] GlipiZIDE [Glipizide Xl] 5 mg PO DAILY #30 tab.er.24 01/24/17 [Rx] Allergies/Adverse Reactions: Allergies No Known Allergies Allergy (Verified 10/13/16 14:20) Certification: Further, I certify that my clinical findings support that this patient is homebound (i.e. absences from home require considerable and taxing effort and are for medical reasons or worship services or infrequently or short duration when for other reasons) because: Homebound Reason: Patient requires assistance of a person or device to safely leave home, Severity of cardiac or pulmonary status limits activity tolerance Attestation: My signature below is to certify that this patient is under my care and that I, or nurse practitioner, or a physician's licensed sales assistant working with me, has a face-to -face encounter with this patient.
[2017-01-24] MEDS: *HR* HYDROcodone/Acet 10/325 mg TABLET PO PRN (12:06)
[2017-01-24] MEDS ORDERED: *HR* HYDROcodone/Acet 10/325 mg TABLET PO PRN (12:22)
[2017-01-24 13:14] LABS: Hemoglobin A1C 6.4 %
== END 2017-01-24 13:37 | disposition home health service (06) | DRG 871 ==
LOC: 3ANU 17:21 → EMEROO 17:21 → 3ANU 19:08 → SUATTDRO 20:07
PROVIDERS: ADMIT Hospitalist; ATTEND Internal Medicine

== ENCOUNTER 2018-09-17 12:00 | Inpatient (IN) ==
[2018-09-17 12:54] LABS: Basophils % 0.4 %; Eosinophils # 0.2 K/mcL (0.0-0.6); Eosinophils % 3.1 %; Hematocrit 45.7 % (37.5-50.1); Hemoglobin 15.1 g/dL (12.9-16.9); Immature Granulocytes % 0.1 % (0-4); Lymphocytes # 2.8 K/mcL (0.6-4.6); Lymphocytes % 38.1 %; Mean Corpuscular Hemoglobin 30.1 pg (28.0-33.3); Mean Corpuscular Volume 91.2 fL (83.0-100.0); Mean Platelet Volume 10.4 fL (9.4-12.4); Monocytes # 0.7 K/mcL (0.0-1.3); Monocytes % 9.6 %; Neutrophils # 3.6 K/mcL (1.6-8.9); Platelet Count 216 K/mcL (140-400); Red Blood Count 5.01 M/mcL (4.19-5.50); Red Cell Distribution Width 12.8 % (11.5-14.5); Segmented Neutrophils % 48.7 %
--- NOTE | 2018-09-17 13:00 | Emergency Department Note ---
Disposition Clinical Impression: Atrial fibrillation with rapid ventricular response Chest pain Qualifiers: Chest pain type: unspecified Qualified Code(s): R07.9 - Chest pain, unspecified Dyspnea Qualifiers: Dyspnea type: other forms of dyspnea Qualified Code(s): R06.09 - Other forms of dyspnea Disposition: Admitted As Inpatient Condition: Fair Forms: ED Satisfaction Letter SOB HPI - General Chief Complaint: ED Shortness of Breath/Dyspnea Stated Complaint: TANNER Time Seen by Provider: 09/17/18 12:30 Source: patient Mode of arrival: ambulatory Limitations: no limitations Nursing Notes Reviewed: Yes Vital Signs Reviewed: Yes - History of Present Illness Patient presents to the ED with the chief complaint of chest pain, shortness breath and palpitations. States that it started about a week ago and is progressively worsening. Describes a pressure-like sensation in his left chest that radiates to his left arm. He is concerned because he has had a 5 vessel bypass in the past and this feels similar. No associated diaphoresis. Does so lightheaded and dizzy. Some nausea but no vomiting. States his shortness of breath. Baseline and he has asthma and is oxygen dependent on 3 L at all times. States he has been needing more than usual. No history of DVT or PE. States that he just does not feel well - Related Data Home Medications Medication Instructions Recorded Confirmed Duloxetine HCl [Cymbalta] 60 mg PO QAM 09/21/15 01/22/17 Multivitamin/Iron/Folic Acid 1 tab PO DAILY 05/26/16 01/22/17 [Centrum Complete Multivit Tab] Mirtazapine [Remeron] 15 mg PO HS 08/03/16 01/22/17 Atorvastatin Calcium [Lipitor] 80 mg PO HS 10/13/16 01/22/17 HYDROcodone/Acet 10/325 mg [[place] 1 tab PO QID 10/13/16 01/22/17 10-325 mg] Gabapentin [Neurontin] 600 mg PO TID 01/22/17 01/23/17 Previous Rx's Medication Instructions Recorded Aspirin 81 mg PO DAILY #60 tab.chew 04/05/16 Cefdinir [Omnicef] 300 mg PO BID #14 capsule 01/24/17 Doxycycline 100 mg PO BID #14 capsule 01/24/17 GlipiZIDE [Glipizide Xl] 5 mg PO DAILY #30 tab.er.24 01/24/17 Nystatin [Nystatin Suspension] 100,000 units PO QID #120 ml 01/24/17 Allergies Allergy/AdvReac Type Severity Reaction Status Date / Time No Known Allergies Allergy Verified 10/13/16 14:20 Review of Systems: As reviewed in the HPI. All other systems reviewed are negative or normal. Past Medical History - Past Medical History Attestation: Yes The following information was validated with the patient. Source: patient Medical history: Reports: arthritis, asthma, atrial fibrillation, coronary artery disease, hyperlipidemia, hypertension, myocardial infarction, other Surgical history: Reports: cholecystectomy, coronary bypass (CABG), orthopedic, other, prostatectomy, other (Thoracenteses) Psychiatric history: Reports: anxiety, depression - Social History Smoking Status: Former smoker Smokeless Tobacco Status: No Alcohol use: Reports: none Drug use: Reports: none Physical Exam CONSTITUTIONAL: [well appearing, alert and in no acute distress] EYES: [EOMI, clear conjunctiva, PERRLA] HENT: [Normocephalic, atraumatic, moist mucus membranes, normal oropharynx] NECK: [normal inspection, full ROM, trachea midline, no obvious swelling] PULMONARY: [normal lung sounds bilaterally, normal chest rise and fall, no respiratory distress or stridor, no wheezes, no rales, no rhonchi CARDIOVASCULAR: [regular rate, irregular rhythm, normal heart sounds, no murmurs, distal extremities are warm and well perfused] GASTROINSTESTINAL: [soft, non-tender, non-rigid, non-distended, no guarding, no rebound, normal bowel sounds] GENITOURINARY/RECTAL: [deferred] NEUROLOGIC: [Alert, oriented x3, normal speech, moves all extremities] EXTREMITIES: [Normal inspection, full ROM, no tenderness, no pedal edema, normal capillary refill] MUSCULOSKELETAL: [no gross deformities, atraumatic] SKIN: [No cyanosis, no diaphoresis, normal color, warm, no rash] PSYCHIATRIC: [Slightly anxious] - General Limitations: no limitations General appearance: alert, in no apparent distress Course Course Narrative: Patient presenting to the ED with chest pain. He also has A. fib on his EKG and is unclear if this is a new diagnosis. He was not sure if he has had this before. We will workup and admit. Vital Signs Temperature 97.4 F L 09/17/18 12:01 Pulse Rate 73 09/17/18 12:01 Respiratory Rate 14 09/17/18 12:01 Blood Pressure 111/72 09/17/18 12:01 O2 Sat by Pulse Oximetry 97 09/17/18 12:01 Temperature 97.4 F L 09/17/18 12:01 Pulse Rate 99 09/17/18 12:49 Respiratory Rate 15 09/17/18 12:49 Blood Pressure 118/92 09/17/18 12:49 O2 Sat by Pulse Oximetry 100 09/17/18 12:49 Oxygen Delivery Oxygen Delivery Nasal Cannula Shortness of Breath/Dyspnea - Medical Records Medical records reviewed: Yes I reviewed the patient's medical records. - Lab Data Lab results reviewed: Yes I reviewed the patient's lab results. Result diagrams: 09/17/18 12:45 Lab Results 09/17/18 Range/Units 12:45 WBC 7.4 (4.3-11.1) K/mcL RBC 5.01 (4.19-5.50) M/mcL Hgb 15.1 (12.9-16.9) g/dL Hct 45.7 (37.5-50.1) % MCV 91.2 (83.0-100.0) fL MCH 30.1 (28.0-33.3) pg MCHC 33.0 (31.6-35.5) g/dL RDW 12.8 (11.5-14.5) % Plt Count 216 (140-400) K/mcL MPV 10.4 (9.4-12.4) fL Immature Gran % 0.1 (0-4) % Seg Neutrophils % 48.7 % Lymphocytes % 38.1 % Monocytes % 9.6 % Eosinophils % 3.1 % Basophils % 0.4 % Neutrophils # 3.6 (1.6-8.9) K/mcL Lymphocytes # 2.8 (0.6-4.6) K/mcL Monocytes # 0.7 (0.0-1.3) K/mcL Eosinophils # 0.2 (0.0-0.6) K/mcL Basophils # 0.0 (0.0-0.2) K/mcL - Radiology Data Radiology results reviewed: Yes I reviewed the patient's radiology results. - EKG Data EKG attestation: Yes I reviewed and interpreted this EKG. EKG results narrative: Atrial fibrillation, rate 121, normal axis, some mild rate dependent ST segment depression, but no acute ischemic change.
[2018-09-17 13:50] LABS: BUN/Creatinine Ratio 20 (6-26); Blood Urea Nitrogen 23 mg/dL (8-23); Calcium 9.3 mg/dL (8.6-10.3); Carbon Dioxide 27 mEq/L (23-29); Chloride 103 mEq/L (98-107); Glucose 120 mg/dL (70-105); Osmolality,Calculated 291 (280-300); Potassium 4.7 mEq/L (3.5-5.1); Sodium 138 mEq/L (136-145); Troponin I < 0.03 ng/mL (< 0.04); eGFR For Non-African Americans > 60 (> 60)
--- NOTE | 2018-09-17 13:56 | Emergency Department Note ---
Disposition Clinical Impression: Atrial fibrillation with rapid ventricular response Chest pain Qualifiers: Chest pain type: unspecified Qualified Code(s): R07.9 - Chest pain, unspecified Dyspnea Qualifiers: Dyspnea type: other forms of dyspnea Qualified Code(s): R06.09 - Other forms of dyspnea Disposition: Admitted As Inpatient Condition: Fair Referrals: Sheldon Gallagher DO [Primary Care Provider] - Forms: ED Satisfaction Letter General Adult HPI - General Chief complaint: ED Shortness of Breath/Dyspnea Stated complaint: TANNER Time Seen by Provider: 09/17/18 12:30 Source: patient Mode of arrival: ambulatory Limitations: no limitations - History of Present Illness Pain Scale: 6 - Related Data Home Medications Medication Instructions Recorded Confirmed Duloxetine HCl [Cymbalta] 60 mg PO QAM 09/21/15 01/22/17 Multivitamin/Iron/Folic Acid 1 tab PO DAILY 05/26/16 01/22/17 [Centrum Complete Multivit Tab] Mirtazapine [Remeron] 15 mg PO HS 08/03/16 01/22/17 Atorvastatin Calcium [Lipitor] 80 mg PO HS 10/13/16 01/22/17 HYDROcodone/Acet 10/325 mg [[place] 1 tab PO QID 10/13/16 01/22/17 10-325 mg] Gabapentin [Neurontin] 600 mg PO TID 01/22/17 01/23/17 Previous Rx's Medication Instructions Recorded Aspirin 81 mg PO DAILY #60 tab.chew 04/05/16 Cefdinir [Omnicef] 300 mg PO BID #14 capsule 01/24/17 Doxycycline 100 mg PO BID #14 capsule 01/24/17 GlipiZIDE [Glipizide Xl] 5 mg PO DAILY #30 tab.er.24 01/24/17 Nystatin [Nystatin Suspension] 100,000 units PO QID #120 ml 01/24/17 Allergies Allergy/AdvReac Type Severity Reaction Status Date / Time No Known Allergies Allergy Verified 10/13/16 14:20 Past Medical History - Past Medical History Medical history: Reports: arthritis, asthma, atrial fibrillation, coronary artery disease, hyperlipidemia, hypertension, myocardial infarction, other Surgical history: Reports: cholecystectomy, coronary bypass (CABG), orthopedic, other, prostatectomy, other (Thoracenteses) Psychiatric history: Reports: anxiety, depression - Social History Smoking Status: Former smoker Smokeless Tobacco Status: No Alcohol use: Reports: none Drug use: Reports: none Physical Exam - General Limitations: no limitations General appearance: alert, in no apparent distress Course Vital Signs Temperature 97.4 F L 09/17/18 12:01 Pulse Rate 73 09/17/18 12:01 Respiratory Rate 14 09/17/18 12:01 Blood Pressure 111/72 09/17/18 12:01 O2 Sat by Pulse Oximetry 97 09/17/18 12:01 Temperature 97.4 F L 09/17/18 12:01 Pulse Rate 110 09/17/18 13:26 Respiratory Rate 18 09/17/18 13:26 Blood Pressure 116/54 09/17/18 13:26 O2 Sat by Pulse Oximetry 100 09/17/18 13:26 Oxygen Delivery Oxygen Delivery Nasal Cannula Medical Decision Making - Lab Data Result diagrams: 09/17/18 12:45 09/17/18 12:45 Lab Results 09/17/18 09/17/18 Range/Units 12:45 12:45 WBC 7.4 (4.3-11.1) K/mcL RBC 5.01 (4.19-5.50) M/mcL Hgb 15.1 (12.9-16.9) g/dL Hct 45.7 (37.5-50.1) % MCV 91.2 (83.0-100.0) fL MCH 30.1 (28.0-33.3) pg MCHC 33.0 (31.6-35.5) g/dL RDW 12.8 (11.5-14.5) % Plt Count 216 (140-400) K/mcL MPV 10.4 (9.4-12.4) fL Immature Gran % 0.1 (0-4) % Seg Neutrophils % 48.7 % Lymphocytes % 38.1 % Monocytes % 9.6 % Eosinophils % 3.1 % Basophils % 0.4 % Neutrophils # 3.6 (1.6-8.9) K/mcL Lymphocytes # 2.8 (0.6-4.6) K/mcL Monocytes # 0.7 (0.0-1.3) K/mcL Eosinophils # 0.2 (0.0-0.6) K/mcL Basophils # 0.0 (0.0-0.2) K/mcL Sodium 138 (136-145) mEq/L Potassium 4.7 (3.5-5.1) mEq/L Chloride 103 (98-107) mEq/L Carbon Dioxide 27 (23-29) mEq/L BUN 23 (8-23) mg/dL Creatinine 1.17 (0.70-1.30) mg/dL Est GFR ( Amer) > 60 (> 60) Est GFR (Non-Af Amer) > 60 (> 60) BUN/Creatinine Ratio 20 (6-26) Glucose 120 H (70-105) mg/dL Calculated Osmolality 291 (280-300) Calcium 9.3 (8.6-10.3) mg/dL Troponin I < 0.03 (< 0.04) ng/mL Attestation Statement - Attestation Attestation: I examined this patient and my medical decision-making was reviewed with the Resident Physician. I agree with the documented findings, disposition and treatment plan as described except to the extent set forth below. [id number] time provided Patient presents with chest pain and dyspnea and appears mildly uncomfortable on exam. I evaluated him in conjunction with the resident physician Dr. Frye
[2018-09-17] MEDS ORDERED: Aspirin 81 MG TAB.CHEW PO ONE (14:13)
[2018-09-17] MEDS ORDERED: 0.9 % Sodium Chloride 1,000 ML ONE (14:16)
[2018-09-17] MEDS ORDERED: 0.9 % Sodium Chloride 1,000 ML IVC ONE (14:18)
[2018-09-17] MEDS ORDERED: Acetaminophen 325 MG TABLET PO PRN (15:31)
[2018-09-17] MEDS ORDERED: Naloxone 0.4 MG/ML INJ IVP PRN (15:31)
[2018-09-17] MEDS ORDERED: Ondansetron 4 MG/2 ML VIAL IVP PRN (15:31)
[2018-09-17] MEDS ORDERED: *HR* HYDROcodone/Acet 5/325 mg TABLET PO PRN (15:31)
[2018-09-17 16:02] LABS: Thyroid Stimulating Hormone 1.04 mcIU/mL (0.340-5.600)
[2018-09-17] MEDS ORDERED: *HR* Dextrose 50 % in Water (Syg) 50 ML SYRINGE IVP PRN (16:14)
[2018-09-17] MEDS ORDERED: D5% in Water 1,000 ML IVC PRN (16:14)
[2018-09-17] MEDS ORDERED: Dextrose Gel 15 GM/37.5 ML TUBE PO PRN ×2 (16:14)
--- NOTE | 2018-09-17 16:28 | Internal Med History&Physical ---
Date of Encounter: 09/17/18 Time of Encounter: 16:20 Internal Medicine - H&P: HPI Chief complaint: Chest pain and palpitations Admitted From: Emergency Dept Plans for Post Hospital Care: Home History of present illness: Mr. Lopez is a 78 year old male with known past medical history of hypertension, hyperlipidemia, DM2 and CAD s/p CABG pt presented to ER with intermittent CP, shortness of breath and palpitations from last 2 days. He has been having intermittent chest pain located sub sternally, radiating to his left arm, feels more like a pressure and 6/10 in severity from last 2 weeks. However sine last 2 days he does have more frequent chest pressure associated with some palpitations. In the ER he happened to have acute a fib with RVR on cardiac exercise physiologist. His EKG showed a fib with VR @ 121. He was given Cardizem bolus and started him on Cardizem drip. Pt stated he is feeling better now. Denied any active CP now. Past Med Surg Social Fam HX - Past Medical History Medical history: arthritis, asthma, atrial fibrillation, coronary artery disease, hyperlipidemia, hypertension, myocardial infarction, other Additional medical history: rheumatic fever Psychiatric history: anxiety, depression - Past Surgical History Surgical History: cholecystectomy, coronary bypass (CABG), orthopedic, other, prostatectomy, other Additional surgical history: Two hernia operations - Social History Smoking Status: Former smoker Smokeless Tobacco Status: No Alcohol use: none Drug use: none - Family History Mother Living Status: Hx Family Cardiac Disorders: Yes Father Living Status: Hx Family Cardiac Disorders: Yes (self, brother,sister, mother) Hx Family Respiratory Disorders: Yes Hx Family Cancer: Yes (Postrate) Hx Family GI Disorders: Yes (father) Hx Family Endocrine Disorder: Yes (brother,) Hx Family Neuromuscular Disorders: No Hx Family Neurologic Disorders: No Hx Family HEENT Disorders: No Hx Family Autoimmune Disorders: Yes (RA) Brother Living Status: Hx Family Cardiac Disorders: Yes Internal Medicine - H&P: Meds Duloxetine HCl [Cymbalta] 60 mg PO QAM 09/21/15 [History] Aspirin 81 mg PO DAILY #60 tab.chew 04/05/16 [Rx] Multivitamin/Iron/Folic Acid [Centrum Complete Multivit Tab] 1 tab PO DAILY 05/26/16 [History] Mirtazapine [Remeron] 15 mg PO HS 08/03/16 [History] Atorvastatin Calcium [Lipitor] 80 mg PO HS 10/13/16 [History] HYDROcodone/Acet 10/325 mg [[place] 10-325 mg] 1 tab PO QID 10/13/16 [History] Gabapentin [Neurontin] 600 mg PO TID 01/22/17 [History] Cefdinir [Omnicef] 300 mg PO BID #14 capsule 01/24/17 [Rx] Doxycycline 100 mg PO BID #14 capsule 01/24/17 [Rx] GlipiZIDE [Glipizide Xl] 5 mg PO DAILY #30 tab.er.24 01/24/17 [Rx] Nystatin [Nystatin Suspension] 100,000 units PO QID #120 ml 01/24/17 [Rx] Allergy/AdvReac Type Severity Reaction Status Date / Time No Known Allergies Allergy Verified 10/13/16 14:20 All Systems PM: A 10-system review of systems was performed and is negative for pertinent findings except as documented above in the HPI. Review of systems: All the systems are reviewed everything is benign except the systems and symptoms I mentioned in the history of present illness - Constitutional Vitals: Temp Pulse Resp BP Pulse Ox 97.4 F L 97 16 138/86 99 09/17/18 15:31 09/17/18 15:31 09/17/18 15:31 09/17/18 15:31 09/17/18 15:31 General appearance: Present: A&O X 3, no acute distress, answers questions appropriately Exam: See below - Head Head exam: Present: atraumatic, normal inspection - Neck Neck exam general surgery: Present: supple - Respiratory Respiratory exam: Present: decreased breath sounds. Absent: rales, respiratory distress, rhonchi, wheezes - Cardiovascular Cardiovascular exam: Present: irregular rhythm, +S1, +S2. Absent: tachycardia - GI/Abdominal GI/Abdominal exam: Present: normal bowel sounds, soft. Absent: rebound, rigid, tenderness - Extremities Exam Extremities exam: Absent: calf tenderness, pedal edema, tenderness - Back Exam Back exam: Absent: CVA tenderness (L), CVA tenderness (R) - Neurological Exam Neurological exam: Present: alert, oriented X3 - Psychiatric Psychiatric exam: Present: normal affect, normal mood - Skin Skin exam: Absent: rash Internal Med - H&P Results - Labs CBC & Chem 7: 09/17/18 12:45 09/17/18 12:45 Labs: Short CBC 09/17/18 Range/Units 12:45 WBC 7.4 (4.3-11.1) K/mcL Hgb 15.1 (12.9-16.9) g/dL Hct 45.7 (37.5-50.1) % Plt Count 216 (140-400) K/mcL Neutrophils # 3.6 (1.6-8.9) K/mcL BMP 09/17/18 12:45 Sodium 138 Potassium 4.7 Chloride 103 Carbon Dioxide 27 BUN 23 Creatinine 1.17 Glucose 120 H Calcium 9.3 Cardiac Enzymes 09/17/18 Range/Units 12:45 Troponin I < 0.03 (< 0.04) ng/mL - Impressions ITS Impressions Chest X-Ray 09/17/18 12:06 IMPRESSION: Stable exam without evidence for acute cardiopulmonary process. D/ / Edy Lee MD / Eyd Lee MD Interpreting Provider: Edy Lee MD - Assessment and Plan (1) Chest pain Current Visit: Yes Status: Acute Assessment and plan: Will admit the pt into Tele for observation Will place pt on cardiac exercise physiologist check serial troponin so far negative troponin EKG reviewed - Afib with RVR @ 121, no acute ischemic changes Cont ASA and Nitro PRN for pain Will check FLP in AM Will get stress test in AM since pt is high risk for ACS Qualifiers: Chest pain type: unspecified Qualified Code(s): R07.9 - Chest pain, unspecified (2) Atrial fibrillation with rapid ventricular response Current Visit: Yes Status: Chronic Assessment and plan: He does have paroxysmal Afib When I reviewed his PMH he had Paroxysmal A fib in the past However pt does not remember Will continue him on Cardizem gtt now If rate gets under control will switch to PO Cardizem Once pharmacy verify his home medications, if he is on any rate controlled medications such as beta joseph, will resume home medications His CHADSVASC score 4, does need to be on Anti coag will start him on Lovenox Inj for now will consider NOAC in AM (3) CAD (coronary artery disease) Current Visit: No Status: Acute Assessment and plan: Will resume home medications Qualifiers: Coronary Disease-Associated Artery/Lesion type: [place] artery [place] vs. transplanted heart: [place] heart Associated angina: without angina Qualified Code(s): I25.10 - Atherosclerotic heart disease of [place] coronary artery without angina pectoris (4) HTN (hypertension) Current Visit: No Status: Chronic Assessment and plan: will resume home medications Qualifiers: Hypertension type: essential hypertension Qualified Code(s): I10 - Essent ial (primary) hypertension (5) DM2 (diabetes mellitus, type 2) Current Visit: Yes Status: Chronic Assessment and plan: ADA diet on ISS Qualifiers: Diabetes mellitus mcc insulin use: without extermination supervisor use Diabetes mellitus complication status: without complication Qualified Code(s): E11.9 - Type 2 diabetes mellitus without complications - Time Spent With Patient Total time spent is greater than 50% in coordination of care (as documented) at patient's floor/unit and/or counseling patient:
[2018-09-17] MEDS ORDERED: Nystatin SUSP 5 ML UD.LIQ PO SCH (17:00)
[2018-09-17] MEDS ORDERED: Perflutren Lipid Microsphere 1.3 ML in 0.9 % Sodium Chloride 8.7 ML IVP ONE ×2 (17:41→19:52)
[2018-09-17] MEDS: Insulin LISPRO 300 UNITS/3 ML VIAL SQ SCH ×2 (18:18→21:05)
--- NOTE | 2018-09-17 19:25 | Electrocardiograph Report ---
[place] [facility] [employer] Test Date: 2018-09-17 Pat Name: Yaron Lopez Department: [id number] Room: 2SH28 Gender: M Electric [employer]: : 1940 Requested By: Rocco Salcedo Order Number: [id number] Reading MD: Jordin Billings Measurements Intervals [place] Rate: 109 P: [place]: 0 QRS: 28 QRSD: 93 T: -21 QT: 285 QTc: 349 Interpretive Statements ATRIAL FIBRILLATION WITH RAPID VENTRICULAR RESPONSE NONSPECIFIC ST & T-WAVE ABNORMALITY ABNORMAL RHYTHM ECG Electronically Signed On 09-17-2018 19:23:40 EDT by Jordin Billings
[2018-09-17] MEDS ORDERED: 0.9 % Sodium Chloride 1,000 ML IVC SCH (20:30)
[2018-09-17] MEDS: Gabapentin 300 MG CAPSULE PO SCH (21:04)
[2018-09-17] MEDS: Mirtazapine 15 MG TABLET PO SCH (21:05)
[2018-09-18 00:54] LABS: BUN/Creatinine Ratio 22 (6-26); Blood Urea Nitrogen 23 mg/dL (8-23); Calcium 8.4 mg/dL (8.6-10.3); Carbon Dioxide 26 mEq/L (23-29); Chloride 106 mEq/L (98-107); Chol/HDL Ratio 3.4 (0-4.9); Cholesterol 103 mg/dL (< 200); Glucose 182 mg/dL (70-105); HDL Cholesterol 30 mg/dL (40-59); LDL Cholesterol,Calculated 38 mg/dL (0-99); Magnesium 1.9 mg/dL (1.6-2.6); Osmolality,Calculated 296 (280-300); Sodium 139 mEq/L (136-145); Triglycerides 177 mg/dL (< 150); eGFR For Non-African Americans > 60 (> 60)
[2018-09-18] MEDS: Insulin LISPRO 300 UNITS/3 ML VIAL SQ SCH ×4 (09:08→20:31)
[2018-09-18] MEDS: Aspirin 81 MG TAB.CHEW PO SCH (09:48)
[2018-09-18] MEDS: Gabapentin 300 MG CAPSULE PO SCH ×3 (09:48→20:30)
[2018-09-18] MEDS: Diltiazem CD (24hr) 180 MG CAPSULE PO SCH (09:48)
[2018-09-18] MEDS: Multivit/Ca/Min/Fe/FA 1 TAB TABLET PO SCH (09:48)
--- NOTE | 2018-09-18 15:49 | Internal Med Progress Note ---
Hospitalist Progress Note - Encounter Date of Encounter: 09/18/18 Time of Encounter: 11:10 - Subjective Interval History: Patient is awake and alert. Sitting up in bed. Complains of some left-sided chest wall pain. Denies any fevers or chills. Does have palpitations. No dizziness or lightheadedness. - Exam Vitals: Temp Pulse Resp BP Pulse Ox 98.1 F 117 18 99/62 97 09/18/18 11:17 09/18/18 11:17 09/18/18 11:17 09/18/18 11:17 09/18/18 11:17 Exam: General: Patient is alert, no acute distress, oriented x 3 ENT: Mucous membranes moist Respiratory: Good respiratory effort. Normal breath sounds. No wheezing or crackles. Cardiovascular: Irregularly irregular rhythm, tachycardia s1 and s2 normal No clicks, rubs, gallops, or murmurs. No pedal edema Abdomen: Abdomen is soft, nontender. Bowel sounds are present Musculoskeletal: Spontaneously moving all extremities Skin: warm, dry, intact. Neuro: Alert oriented x 3 normal cranial nerves, no focal deficits - Assessment and Plan (1) Atrial fibrillation with rapid ventricular response Current Visit: Yes Status: Chronic Assessment and Plan: Heart rate varying between 90 and 120 this morning. Will start patient on oral Cardizem and wean off Cardizem drip. Also started Lovenox for anticoagulation. (2) Chest pain Current Visit: Yes Status: Acute Assessment and Plan: Complaints of left-sided chest pain today. Will set up for stress test in the morning. (3) HTN (hypertension) Current Visit: Yes Status: Chronic Assessment and Plan: Blood pressure is well controlled. We will continue to monitor (4) CAD (coronary artery disease) Current Visit: Yes Status: Chronic Assessment and Plan: Continue aspirin, statin. Stress test in morning. Troponins negative. (5) DM2 (diabetes mellitus, type 2) Current Visit: Yes Status: Chronic Assessment and Plan: Continue sliding scale insulin. DVT Prophylaxis: On Lovenox - Time Spent with Patient Total time spent is greater than 50% in coordination of care (as documented) at patient's floor/unit and/or counseling patient: Internal Medicine: Result - Labs CBC & Chem 7: 09/17/18 12:45 09/18/18 00:32 Labs: BMP 09/18/18 00:32 Sodium 139 Potassium 4.0 Chloride 106 Carbon Dioxide 26 BUN 23 Creatinine 1.03 Glucose 182 H Calcium 8.4 L Cardiac Enzymes 09/17/18 09/18/18 Range/Units 18:15 00:32 Troponin I < 0.03 < 0.03 (< 0.04) ng/mL - Impressions Impressions Echocardiogram 09/17/18 16:15 Impressions: LVEF 60-65%. Indeterminate diastolic function. Normal right ventricular structure and function. Mild tricuspid regurgitation. No pulmonary hypertension. Left Ventricular Wall Motion: Rest Echo Findings All wall segments showed normal motion. Findings: Study Quality * Technically sub-optimal due to clinical status. ECG Findings * Atrial fibrillation RVR, IVCD. Left Ventricle * LVEF 60-65%. * Normal LV chamber size, wall thickness and systolic function. * Indeterminate diastolic function. * Atypical septal motion consistent with post-operative status. Right Ventricle * Normal right ventricular structure and function. Left Atrium * Normal left atrial size. Right Atrium * Normal right atrial size. Interatrial Septum * Interatrial septum not well evaluated. * No evidence of PFO by color Doppler. Aortic Valve * Trileaflet aortic valve with normal function. * No aortic stenosis. * No aortic regurgitation. Mitral Valve * Normal mitral valve structure. * No mitral stenosis. * Trace mitral regurgitation. Tricuspid Valve * Normal tricuspid valve structure. * No tricuspid stenosis. * Mild tricuspid regurgitation. * Estimated RVSP is 35 mmHg. * Estimated RA pressure is 3 mmHg. * No pulmonary hypertension. Pulmonic Valve * Pulmonic valve is not well visualized. * No pulmonic stenosis. * No pulmonic regurgitation. Aorta * Normally sized aortic root. Pericardium * The pericardium appears normal. IVC * The IVC is not dilated. * > 50% respiratory change Consult Discharge Plan - Plan Referrals: Sheldon Gallagher DO [Primary Care Provider] - (2) Chest pain Qualifiers: Chest pain type: unspecified Qualified Code(s): R07.9 - Chest pain, unspecified (3) HTN (hypertension) Qualifiers: Hypertension type: essential hypertension Qualified Code(s): I10 - Essential (primary) hypertension (4) CAD (coronary artery disease) Qualifiers: Coronary Disease-Associated Artery/Lesion type: [place] artery [place] vs. transplanted heart: [place] heart Associated angina: without angina Qualified Code(s): I25.10 - Atherosclerotic heart disease of [place] coronary artery without angina pectoris (5) DM2 (diabetes mellitus, type 2) Qualifiers: Diabetes mellitus computer terminal operator insulin use: without computer terminal operator use Diabetes mellitus complication status: without complication Qualified Code(s): E11.9 - Type 2 diabetes mellitus without complications
[2018-09-18] MEDS ORDERED: Nitroglycerin 0.4 MG TAB.SUBL SL PRN (15:57)
[2018-09-18] MEDS: *HR* Enoxaparin 80 MG/0.8 ML SYRINGE SQ SCH ×2 (17:06→17:12)
[2018-09-18] MEDS: *HR* Metoprolol 5 MG/5 ML VIAL IVP PRN (17:08)
[2018-09-18] MEDS: Mirtazapine 15 MG TABLET PO SCH (20:30)
[2018-09-19] MEDS: *HR* Enoxaparin 80 MG/0.8 ML SYRINGE SQ SCH (06:16)
[2018-09-19] MEDS ORDERED: Regadenoson 0.4 MG/5 ML SYRINGE IVP ONE ×2 (06:36→07:31)
[2018-09-19] MEDS: Gabapentin 300 MG CAPSULE PO SCH ×2 (08:51→14:30)
[2018-09-19] MEDS: Multivit/Ca/Min/Fe/FA 1 TAB TABLET PO SCH (08:52)
[2018-09-19] MEDS: Aspirin 81 MG TAB.CHEW PO SCH (08:52)
[2018-09-19] MEDS: Diltiazem CD (24hr) 180 MG CAPSULE PO SCH (08:52)
[2018-09-19] MEDS: *HR* Metoprolol 5 MG/5 ML VIAL IVP PRN (08:59)
[2018-09-19] MEDS ORDERED: Loratadine 10 MG TABLET PO SCH (09:00)
[2018-09-19] MEDS: Insulin LISPRO 300 UNITS/3 ML VIAL SQ SCH ×2 (10:10→12:42)
[2018-09-19 11:46] VITALS: BP 109/84
--- NOTE | 2018-09-19 12:23 | Discharge Summary ---
- NOTES TO OUTPATIENT PROVIDER Notes to Outpatient Provider: Patient with a history of hypertension, hyperlipidemia, diabetes and coronary artery disease status post CABG was hospitalized here initially with complaints of palpitations and intermittent chest pain. Patient was found to be in A. fib with rapid ventricular response. He was placed on IV Cardizem drip. Reviewing his records, he did have episodes of A. fib on his prior EKGs. His heart rate improved with IV Cardizem and then he was transitioned to oral Cardizem. He did also complain of chest pain. Troponins were negative. Patient then underwent nuclear cardiac stress test which showed no signs of reversible ischemia. Echocardiogram showed a normal ejection fraction of 60-65% with mild tricuspid regurgitation. Patient has a CHADSVASC score of 4 And is recommended anticoagulation. He was placed on Lovenox initially and has now been transitioned to Coumadin which he will continue to take at home. He will follow up with cardiology and his PCP for further management. Orders not resulted at time of discharge: Pending orders 09/19/18 07:00 NM adrienne perf SPECT multi [NM] Routine Date of Encounter: 09/19/18 Time of Encounter: 12:23 - Discharge Diagnosis (1) Atrial fibrillation with rapid ventricular response Priority: Primary Status: Chronic (2) Chest pain Priority: Secondary Status: Acute Assessment and Plan: Chest pain most likely due to A. fib with RVR Qualifiers: Chest pain type: precordial pain Qualified Code(s): R07.2 - Precordial pain (3) HTN (hypertension) Priority: Secondary Status: Chronic Qualifiers: Hypertension type: essential hypertension Qualified Code(s): I10 - Essential (primary) hypertension (4) CAD (coronary artery disease) Priority: Secondary Status: Chronic Qualifiers: Coronary Disease-Associated Artery/Lesion type: [place] artery [place] vs. transplanted heart: [place] heart Associated angina: without angina Qualified Code(s): I25.10 - Atherosclerotic heart disease of [place] coronary artery without angina pectoris (5) DM2 (diabetes mellitus, type 2) Priority: Secondary Status: Chronic Qualifiers: Diabetes mellitus long term care phlebotomist insulin use: without long term care phlebotomist use Diabetes mellitus complication status: without complication Qualified Code(s): E11.9 - Type 2 diabetes mellitus without complications Hospital course: Mr. Lopez is a 78 year old male Patient with a history of hypertension, hyperlipidemia, diabetes and coronary artery disease status post CABG was hospitalized here initially with complaints of palpitations and intermittent chest pain. Patient was found to be in A. fib with rapid ventricular response. He was placed on IV Cardizem drip. Reviewing his records, he did have episodes of A. fib on his prior EKGs. His heart rate improved with IV Cardizem and then he was transitioned to oral Cardizem. He did also complain of chest pain. Troponins were negative. Patient then underwent nuclear cardiac stress test which showed no signs of reversible ischemia. Echocardiogram showed a normal ejection fraction of 60-65% with mild tricuspid regurgitation. Patient has a CHADSVASC score of 4 And is recommended anticoagulation. He was placed on Lovenox initially and has now been transitioned to Coumadin which he will continue to take at home. He will follow up with cardiology and his PCP for further management. Discharge discussed with: patient, family, nurse - Time Spent with Patient Total time spent providing and/or coordinating discharge services: Time spent: Greater than 30 minutes (35 min) - Discharge Medications Prescriptions: New Diltiazem CD (24hr) [Cardizem CD] 180 mg PO DAILY #30 cap.er.24h Enoxaparin [Lovenox] 80 mg SQ Q12HR #14 syr Warfarin Sodium 2.5 mg PO DAILY #60 tablet Continue Duloxetine HCl [Cymbalta] 60 mg PO QAM Aspirin 81 mg PO DAILY #60 tab.chew Multivitamin/Iron/Folic Acid [Centrum Complete Multivit Tab] 1 tab PO QAM Mirtazapine [Remeron] 15 mg PO HS Atorvastatin Calcium [Lipitor] 80 mg PO HS HYDROcodone/Acet 10/325 mg [[place] 10-325 mg] 1 tab PO BID Gabapentin [Neurontin] 600 mg PO BID Cetirizine HCl [24Hour Allergy] 10 mg PO QAM Montelukast [Singulair] 10 mg PO QAM Nitroglycerin 0.4 mg SL Q5MIN PRN MDD [id number] CALL 911 PRN Reason: Chest Pain Pantoprazole Sodium [Protonix] 40 mg PO QAM Home Medications: Duloxetine HCl [Cymbalta] 60 mg PO QAM 09/21/15 [History] Aspirin 81 mg PO DAILY #60 tab.chew 04/05/16 [Rx] Multivitamin/Iron/Folic Acid [Centrum Complete Multivit Tab] 1 tab PO QAM 05/26/16 [History] Mirtazapine [Remeron] 15 mg PO HS 08/03/16 [History] Atorvastatin Calcium [Lipitor] 80 mg PO HS 10/13/16 [History] HYDROcodone/Acet 10/325 mg [[place] 10-325 mg] 1 tab PO BID 10/13/16 [History] Gabapentin [Neurontin] 600 mg PO BID 01/22/17 [History] Cetirizine HCl [24Hour Allergy] 10 mg PO QAM 09/18/18 [History] Montelukast [Singulair] 10 mg PO QAM 09/18/18 [History] Nitroglycerin 0.4 mg SL Q5MIN PRN MDD [id number] CALL 911 09/18/18 [History] Pantoprazole Sodium [Protonix] 40 mg PO QAM 09/18/18 [History] Diltiazem CD (24hr) [Cardizem CD] 180 mg PO DAILY #30 cap.er.24h 09/19/18 [Rx] Enoxaparin [Lovenox] 80 mg SQ Q12HR #14 syr 09/19/18 [Rx] Warfarin Sodium 2.5 mg PO DAILY #60 tablet 09/19/18 [Rx] Allergies/Adverse Reactions: Allergy/AdvReac Type Severity Reaction Status Date / Time No Known Allergies Allergy Verified 09/18/18 10:19 Date of admission: 09/18/18 17:10 Primary care physician: Sheldon Gallagher Discharging clinician: Jose David Bobby Anticipated date of discharge: 09/19/18 - Constitutional Vitals: Temp Pulse Resp BP Pulse Ox 97.9 F 100 17 109/84 96 09/19/18 11:45 09/19/18 11:45 09/19/18 11:45 09/19/18 11:45 09/19/18 11:45 General appearance: Present: cooperative, A&O X 3, pleasant, no acute distress, answers questions appropriately Exam: General: Patient is alert, no acute distress, oriented x 3 Respiratory: Good respiratory effort. Normal breath sounds. No wheezing or crackles. Cardiovascular: Irregularly irregular rhythm. s1 and s2 normal No clicks, rubs, gallops, or murmurs. No pedal edema Abdomen: Abdomen is soft, nontender. Bowel sounds are present Musculoskeletal: Spontaneously moving all extremities Skin: warm, dry, intact. Neuro: Alert oriented x 3 normal cranial nerves, no focal deficits - Patient Status Disposition: Home, Self-Care Condition: Good Functional capacity at discharge: independent ambulation Overall status at discharge: patient is progressing back to baseline - Discharge Instructions Instructions: Atrial Fibrillation (DC), Chest Pain (DC) Follow Up With: Sheldon Gallagher DO [Primary Care Provider] - (In 1-2 weeks) Nena Philip MD [Partnered Physician] - (In 1-2 weeks for Tam lubin) - Diet and Activity Activity: increase activity as tolerated Diet: low fat, low cholesterol, low salt diet
[2018-09-19 15:37] LABS: INR 1.1; Prothrombin Time 12.2 Seconds (9.4-12.1)
[2018-09-19] MEDS ORDERED: *HR* Warfarin 2.5 MG TABLET PO ONE (16:15)
[2018-09-19] MEDS ORDERED: *HR* Rivaroxaban 10 MG TABLET PO SCH (17:00)
[2018-09-19] MEDS ORDERED: Warfarin perPT PO PRN (18:00)
[2018-09-19] MEDS ORDERED: Apixaban 5 MG TABLET PO SCH (21:00)
== END 2018-09-19 16:33 | disposition home or self-care (01) | DRG 310 ==
LOC: EMEROOARM 12:00 → 2SOUTHHOLD 12:00 → SUATTDRO 14:56 → 2SOUTHHOLD 15:30
PROVIDERS: ADMIT Internal Medicine Nephrology; ATTEND Internal Medicine

== ENCOUNTER 2020-11-04 20:21 | Observation (INO) ==
[2020-11-04] MEDS ORDERED: 0.9 % Sodium Chloride 500 ML IVC ONE (21:02)
[2020-11-04 21:16] LABS: Hemoglobin 10.2 g/dL (12.9-16.9); Immature Granulocytes % 0.5 % (0-4); Lymphocytes % 8.3 %; Mean Corpuscular HGB Conc 31.9 g/dL (31.6-35.5); Mean Corpuscular Hemoglobin 29.1 pg (28.0-33.3); Mean Corpuscular Volume 91.2 fL (83.0-100.0); Mean Platelet Volume 10.3 fL (9.4-12.4); Monocytes # 0.7 K/mcL (0.0-1.3); Monocytes % 5.6 %; Neutrophils # 10.3 K/mcL (1.6-8.9); Platelet Count 254 K/mcL (140-400); Red Blood Count 3.51 M/mcL (4.19-5.50); Red Cell Distribution Width 14.2 % (11.5-14.5); Segmented Neutrophils % 85.6 %
[2020-11-04 21:24] LABS: INR 3.7; Prothrombin Time 41.4 Seconds (9.4-12.1)
[2020-11-04 21:27] LABS: D-Dimer < 215 ng/mLFEU (0-500)
[2020-11-04 21:41] LABS: BUN/Creatinine Ratio 19 (6-26); Blood Urea Nitrogen 26 mg/dL (8-23); Calcium 8.2 mg/dL (8.6-10.3); Carbon Dioxide 21 mEq/L (23-29); Chloride 108 mEq/L (98-107); Glucose 386 mg/dL (70-105); Osmolality,Calculated 307 (280-300); Potassium 4.6 mEq/L (3.5-5.1); Sodium 138 mEq/L (136-145); eGFR For African Americans > 60 (> 60); eGFR For Non-African Americans 51 (> 60)
[2020-11-04 21:42] LABS: Troponin I < 0.03 ng/mL (< 0.04)
[2020-11-04] MEDS ORDERED: Naloxone 0.4 MG/ML INJ IVP PRN (23:42)
[2020-11-04] MEDS ORDERED: Nitroglycerin 0.4 MG TAB.SUBL SL PRN (23:45)
[2020-11-04] MEDS ORDERED: 0.9 % Sodium Chloride 1,000 ML IVC SCH (23:45)
[2020-11-05] MEDS ORDERED: Gabapentin 300 MG CAPSULE PO ONE (01:08)
[2020-11-05] MEDS ORDERED: *HR* Dextrose 50 % in Water (Vial) 50 ML VIAL IVP PRN (05:24)
[2020-11-05] MEDS ORDERED: Dextrose Gel 15 GM/37.5 ML TUBE PO PRN ×2 (05:24)
[2020-11-05] MEDS ORDERED: D5% in Water 1,000 ML IVC PRN (05:24)
[2020-11-05] MEDS: Insulin LISPRO 300 UNITS/3 ML VIAL SUBQ SCH ×3 (07:42→17:09)
[2020-11-05 07:54] LABS: Hematocrit 33.9 % (37.5-50.1); Hemoglobin 10.7 g/dL (12.9-16.9); Mean Corpuscular HGB Conc 31.6 g/dL (31.6-35.5); Mean Corpuscular Hemoglobin 28.8 pg (28.0-33.3); Mean Corpuscular Volume 91.4 fL (83.0-100.0); Mean Platelet Volume 10.7 fL (9.4-12.4); Platelet Count 258 K/mcL (140-400); Red Blood Count 3.71 M/mcL (4.19-5.50); Red Cell Distribution Width 14.2 % (11.5-14.5); White Blood Count 11.5 K/mcL (4.3-11.1)
[2020-11-05 08:24] LABS: BUN/Creatinine Ratio 26 (6-26); Blood Urea Nitrogen 27 mg/dL (8-23); Calcium 8.3 mg/dL (8.6-10.3); Carbon Dioxide 26 mEq/L (23-29); Chloride 108 mEq/L (98-107); Glucose 139 mg/dL (70-105); Osmolality,Calculated 299 (280-300); Potassium 3.7 mEq/L (3.5-5.1); Sodium 141 mEq/L (136-145); Troponin I < 0.03 ng/mL (< 0.04); eGFR For African Americans > 60 (> 60); eGFR For Non-African Americans > 60 (> 60)
[2020-11-05] MEDS: Aspirin 81 MG TAB.CHEW PO SCH (08:27)
[2020-11-05] MEDS ORDERED: 0.9 % Sodium Chloride 1,000 ML ONE (09:24)
[2020-11-05] MEDS: Gabapentin 300 MG CAPSULE PO SCH ×3 (10:40→20:53)
[2020-11-05] MEDS: *HR* HYDROcodone/Acet 10/325 mg TABLET PO PRN ×2 (12:55→20:53)
[2020-11-05] MEDS ORDERED: Perflutren Lipid Microsphere 1.3 ML in 0.9 % Sodium Chloride 8.7 ML IVP PRN (13:04)
[2020-11-05] MEDS: predniSONE 20 MG TABLET PO SCH (14:10)
[2020-11-05] MEDS: Lactobacillus 1 EACH CAP.SPRINK PO SCH (17:09)
[2020-11-05] MEDS: Doxycycline 100 MG CAPSULE PO SCH (17:09)
[2020-11-05] MEDS ORDERED: Warfarin perPT PO PRN (18:00)
[2020-11-05 19:15] LABS: Adenovirus F 40/41 PCR Not detected (Not detect); Astrovirus PCR Not detected (Not detect); C.difficile Toxin A/B Gene PCR Not detected (Not detect); Campylobacter by PCR Not detected (Not detect); Cryptosporidium by PCR Not detected (Not detect); Cyclospora cayetanensis PCR Not detected (Not detect); E. coli O157 by PCR Not detected (Not detect); Entamoeba histolytica PCR Not detected (Not detect); Enteroaggregative E.coli(EAEC) Not detected (Not detect); Enteropathogenic E.coli(EPEC) Not detected (Not detect); Enterotoxigenic E.coli (ETEC) Not detected (Not detect); Giardia lamblia PCR Not detected (Not detect); Norovirus GI/GII PCR Not detected (Not detect); Plesiomonas shigelloides PCR Not detected (Not detect); Rotavirus A PCR Not detected (Not detect); Salmonella PCR Not detected (Not detect); Sapovirus PCR Not detected (Not detect); Shig/EnteroinvasiveE coli EIEC Not detected (Not detect); Shigalike tox-prod E coli STEC Not detected (Not detect); Vibrio PCR Not detected (Not detect); Vibrio cholerae PCR Not detected (Not detect); Yersinia enterocolitica PCR Not detected (Not detect)
[2020-11-05] MEDS ORDERED: Mirtazapine 15 MG TABLET PO SCH (21:00)
[2020-11-05] MEDS: Ipratropium/Albuterol Neb 3 ML IH SCH (22:05)
[2020-11-06] MEDS: Insulin LISPRO 300 UNITS/3 ML VIAL SUBQ SCH ×3 (00:41→14:31)
[2020-11-06] MEDS: Ipratropium/Albuterol Neb 3 ML IH SCH ×2 (03:54→10:16)
[2020-11-06 03:57] LABS: Basophils % 0.1 %; Hemoglobin 10.9 g/dL (12.9-16.9); Immature Granulocytes % 0.5 % (0-4); Lymphocytes # 1.5 K/mcL (0.6-4.6); Lymphocytes % 15.5 %; Mean Corpuscular HGB Conc 31.1 g/dL (31.6-35.5); Mean Corpuscular Hemoglobin 28.4 pg (28.0-33.3); Mean Corpuscular Volume 91.1 fL (83.0-100.0); Mean Platelet Volume 10.2 fL (9.4-12.4); Monocytes # 0.6 K/mcL (0.0-1.3); Neutrophils # 7.4 K/mcL (1.6-8.9); Platelet Count 250 K/mcL (140-400); Red Blood Count 3.84 M/mcL (4.19-5.50); Segmented Neutrophils % 77.9 %; White Blood Count 9.5 K/mcL (4.3-11.1)
[2020-11-06 04:10] LABS: INR 2.7; Prothrombin Time 30.8 Seconds (9.4-12.1)
[2020-11-06 04:16] LABS: BUN/Creatinine Ratio 25 (6-26); Blood Urea Nitrogen 22 mg/dL (8-23); Calcium 8.6 mg/dL (8.6-10.3); Carbon Dioxide 28 mEq/L (23-29); Chloride 104 mEq/L (98-107); Glucose 148 mg/dL (70-105); Osmolality,Calculated 292 (280-300); Potassium 3.9 mEq/L (3.5-5.1); Sodium 138 mEq/L (136-145); eGFR For African Americans > 60 (> 60); eGFR For Non-African Americans > 60 (> 60)
[2020-11-06] MEDS: Doxycycline 100 MG CAPSULE PO SCH (06:15)
[2020-11-06] MEDS: Gabapentin 300 MG CAPSULE PO SCH (08:59)
[2020-11-06] MEDS ORDERED: Multivit/Ca/Min/Fe/FA 1 TAB TABLET PO SCH (09:00)
[2020-11-06] MEDS: Aspirin 81 MG TAB.CHEW PO SCH (09:00)
[2020-11-06] MEDS ORDERED: Loratadine 10 MG TABLET PO SCH (09:00)
[2020-11-06] MEDS ORDERED: DilTIAZem CD (24hr) 180 MG CAP.ER.24H PO SCH (09:00)
[2020-11-06] MEDS: Lactobacillus 1 EACH CAP.SPRINK PO SCH (09:00)
[2020-11-06] MEDS: predniSONE 20 MG TABLET PO SCH (09:00)
[2020-11-06 11:05] VITALS: BP 130/65
[2020-11-06] MEDS ORDERED: *HR* Warfarin 4 MG TABLET PO ONE (18:00)
== END 2020-11-06 15:02 | disposition home or self-care (01) ==
LOC: EMEROOARM 20:21 → CDU 20:21 → SUATTDRO 22:16 → CDU 22:44
PROVIDERS: ADMIT Internal Medicine; ATTEND General Practice